=== PATIENT | female | born 1935 | race Caucasian/White ===

== ENCOUNTER 2024-02-27 17:18 | Inpatient (IN) | payer MEDICARE, OTHER, SELFPAY ==
[2024-02-27] VITALS (9 sets, daily range): BP systolic 86–138; BP diastolic 55–76; BMI 23.5; BMI 22.5
--- NOTE | 2024-02-27 16:08 | CON.GI ---
Addendum entered and electronically signed by Justa Bush DO 02/27/24 18:24:
Patient seen and examined independently of [facility]NIC[facility]. I agree with her note with my additions below
In the room with both her daughters which were helping with the history
Cristal Hudson is an 88-year-old female with history of hypertension, new seizure with recent admission to [facility] in January where she was intubated with an NG tube, daily alcohol use roughly 3 glasses of wine for years, depression who comes in with
vomiting a clot of blood followed by coffee-ground emesis in the ambulance. Over the past couple of weeks she has felt very weak and dizzy at times. She has stopped her blood pressure medications because she felt so dizzy. Upon questioning it
sounds like she also has had dark stools over the past week or so. She is not the best historian. She also has chronic pill dysphagia and states she had an esophagram done at [place]. We do not have these results. She has not seen GI. She has
not had an endoscopy. Her last colonoscopy was probably a decade ago. She is also lost some weight about 10 pounds but that is been since her hospitalization. She denies any abdominal pain. She does take an intermittent 81 mg aspirin but no
other NSAIDs. She is not on any blood thinners.
Upon arrival her hemoglobin was 7.8. Platelets 208, MCV 100, white count 13,000. We do not have any baseline hemoglobin for her. Normal coagulation studies with an INR 1.1. Her BUN is 54, creatinine 1.9, glucose 244. She is not a known diabetic.
She has no imaging to review
After a liter of fluid her blood pressure was 130/90 when I was examining her. She is pale on exam. Her abdomen is soft, nontender. Her lungs were clear she has a mild murmur
No lower extremity edema
She is calm and pleasant and in no acute distress.
#anemia and UGIB -she was hemodynamically unstable on presentation but responded well to a liter of fluids
-- Most concerned about a bleeding ulcer versus neoplasm
-- Resuscitation, 1 unit of blood will plan for endoscopy tomorrow
-- PPI drip, ICU admission, 2 large-bore IVs
-- Daughters agree
Original Note:
Consultation
-
Date/Time Consultation Requested: 02/27/24 1600
Date/Time Consultation Performed: 02/27/24 1610
Requesting Provider: Good Rivera PA-C
Performing Provider: BEAR Guerrero, Justa Bush DO
Reason for Consultation: upper GI bleed
Medical History
Chief Complaint / HPI
Chief Complaint: vomiting blood
History of Present Illness:
Pt is a 88yo presents with hx HTN but recent hypotension, PUD, new seizures with admission in [place] in January, daily ETOH use til January(3 glasses wine daily for years), depression, TKR, hysterectomy prior admits to recent dizziness. She
was found down in bathroom in January and then had witness seizure in ER. She was intubated and has several day stay. Family did recall possible anemia during that visit but no transfusion was required. She now was noted with abdominal pain and
nausea with inability to eat. She was noted with some vomiting then witnessed coffee ground emesis in ambulance and dark stool then larger volume deep red stool with clots passed in ER with some recent diarrhea. Pt denies NSAID use other than
occasional daily ASA.
Pt otherwise admits to weight loss and dizziness but denies dysphagia, GERD, or constipation. Pt did not recall EGD in past with prior PUD but hx colonoscopy many years ago recalls as normal. On admission noted BP 86/68, HR 108 with WBC 13.1,
hbg 7.8 with MCV 100, platelets normal, albumin 3.4.
Past Medical History
Past Medical History: HTN, Seizures and Other (PUD)
Past Surgical History: Gynecological (, hysterectomy)
Social History
Tobacco: Former Smoker
Alcohol: Daily (3 glasses of wine daily quit 1 month ago )
Drug: None
Personal:
Living: Other (lives in daughter's in law suite)
Employment: Retired
Family History
Family History: Other (no family hx colon CA or polyps)
Allergies / Home Medications
Allergy/AdvReac Type Severity Reaction Status Date / Time
No Known Allergies Allergy Unverified 02/27/24 16:06
Review of Systems
-
History Source: Patient and Family
Constitutional: Reports Weight Loss and Fatigue
EENT: Reports No Symptoms
Respiratory: Reports No Symptoms
Abdomen/GI: Reports Abdominal Pain, Nausea, Vomiting (coffee ground emesis ), Diarrhea, Bloody Stools and Black Stools
: Reports No Symptoms
Musculoskeletal: Reports No Symptoms
Skin: Reports No Symptoms
Neurological: Reports Dizzy and Weakness
Hematologic/Lymphatic: Reports Bleeding
Vital Signs
Pulse Resp BP Pulse Ox
108 14 86/68 97
02/27/24 15:54 02/27/24 15:54 02/27/24 15:54 02/27/24 15:54
Physical Exam
Exam
General: Other (awake and alert, pale appearing )
HEENT: Normocephalic and Anicteric
Respiratory: Clear
Cardiac: Other (tachy)
GI: Soft, Non Distended and Tender (minimal )
Rectal: Other (per staff large volume of red burgundy stools)
Musculoskeletal: No Clubbing and No Cyanosis
Skin: Warm and Dry
Neuro: Awake, Alert, AO x 3 and Other (occasional forgetfulness )
Psych: Calm
Results
Diagnostic Image Results:
Prior GI Procedures:
EGD: ? in past with PUD
Colonoscopy: years ago recall as normal
Assessment / Plan
-
Pt is a 88yo presents with hx HTN but recent hypotension, PUD, new seizures with admission in [place] in January, daily ETOH use til January(3 glasses wine daily for years), depression, TKR, hysterectomy prior admits to recent dizziness.
She was found down in bathroom in January and then had witness seizure in ER. She was intubated and has several day stay. Family did recall possible anemia during that visit but no transfusion was required. She now was noted with abdominal pain and
nausea with inability to eat. She was noted with some vomiting then witnessed coffee ground emesis in ambulance and dark stool then larger volume deep red stool with clots passed in ER. Pt did not recall EGD in past with prior PUD but hx
colonoscopy many years ago recalls as normal. On admission noted BP 86/68, HR 108 with WBC 13.1, hbg 7.8 with MCV 100, BUN 54 platelets normal, albumin 3.4. No baseline labs. Pt denies NSAID use other than occasional daily ASA.
-coffee ground emesis with large volume deep red stool on arrival
-symptomatic macrocytic anemia
-hypotension/tachycardia in ER
-daily ETOH use 3 drinks daily til January
-recent admission to [place] for new onset seizure
-hypoalbuminemia
-leukocytosis
other medical problems:
-hx HTN
-TKR
-depression
-hysterectomy
-prior
PLAN:
etiology of bleeding with concern for aggressive UGI bleed with coffee ground emesis/deep red stools with bun elevation vs lower or SB bleeding-- PUD, ectasia, mass vs with hx daily ETOH use portal gastropathy, gastritis/esophageal varices in
differential but normal INR, platelets with low albumin on arrival
will need EGD-- will review timing with Dr. Bush
NPO
PPI and octreotide gtt started on ER
ceftriaxone given in ER
obtain [facility] records
trend hbg transfuse as needed
continued ETOH abstinence
NSAID avoidance
updated family at bedside
-
-
Thank you for consultation and allowing me to participate in the patient's care. Please call the environmental health inspector GI physician during the after hours with any questions or concerns.
[2024-02-27] MEDS: PROTONIX IV 80 MG IV (16:14)
[2024-02-27] MEDS: PROTONIX 100 IV (16:16)
[2024-02-27] MEDS: SANDOSTATIN 50 MCG IV (16:17)
[2024-02-27] MEDS: NSS 1000 IV ×2 (16:18→20:05)
[2024-02-27 16:19] LABS: % Basophils 0.3 % (0-2); % Eosinophils 0.3 % (0-6); % Immature Granulocytes 0.3 % (0-0.5); % Lymphocytes 44.5 % (20.5-51.1); % Monocytes 4.8 % (1.7-9.3); % Neutrophils 49.8 % (42.2-75.2); Absolute Lymphocytes 5.8 10^3/uL (1.2-3.4); Absolute Monocytes 0.6 10^3/uL (0.1-0.6); Absolute Neutrophils 6.5 10^3/uL (1.4-6.5); Hematocrit 23.5 % (37.0-47.0); Hemoglobin 7.8 g/dL (12.0-16.0); Mean Corp Hgb Conc. 33.2 g/dL (33.0-37.0); Mean Corpuscular Hgb 33.2 pg (27.0-31.0); Mean Platelet Volume 9.6 fL (7.4-10.4); Nucleated Red Blood Cells % 0 %; Platelet Count 208 10^3/uL (130-400); Red Blood Cell Count 2.35 10^6/uL (4.20-5.40); Red Cell Dist. Width 13.5 % (11.5-14.5); White Blood Cell Count 13.1 10^3/uL (4.8-10.8)
--- NOTE | 2024-02-27 16:19 | ED.GENMED ---
History of Present Illness
<Good Rivera PA-C - Last Filed: 02/27/24 19:47>
General
Chief Complaint: Vomiting Blood
Source: patient and ambulance crew
Time Seen by Provider: 02/27/24 15:57
Travel History
Have you had any contact with someone who has COVID-19?: No
Do you have any symptoms of coronavirus? Fever > 100 degrees, chills, cough, shortness of breath, sore throat, loss of taste or smell, muscle aches, or headache?: No
History of Present Illness
History of Present Illness:
88-year-old female with past medical history of suspected alcohol withdrawal seizure, recently started on Keppra in January, presenting to the emergency department via EMS for evaluation after patient started to feel unwell over the last few days,
yesterday noticed black stools, today had an episode of coffee-ground emesis in front of EMS and patient also had a bowel movement at this time as well. Patient admits to associated lightheadedness and dizziness. She denies any abdominal pain,
current nausea, urinary symptoms. She denies any use of anticoagulants. She notes that she does not take frequent NSAIDs. Has a history of daily alcohol use noting she would drink around 1 bottle per day. Has not had any alcohol since January 20.
Denies any known history of GI complications. Last colonoscopy was many years ago without any reported complications and family history was noncontributory.
Past History
<Good Rivera PA-C - Last Filed: 02/27/24 19:47>
Past History
ED Past Medical History: Seizures
ED Past Surgical History: , Gynecological and Orthopedic
Social History
Tobacco: Non-smoker
Alcohol: Former
Drug: None
Personal:
Living: with family
Employment: Retired
Review of Systems
<Good Rivera PA-C - Last Filed: 02/27/24 19:47>
Review of Systems
All Other Systems: ROS reviewed and negative except as documented in HPI and ROS
Phy Exam
<Good Rivera PA-C - Last Filed: 02/27/24 19:47>
Physical Exam
Physical Exam:
GENERAL: Alert , pale, thin, appears unwell but is talkative
EYE: Pale conjunctiva
NECK: Supple
ENT: o/p clr
CARDIAC: Tachycardic rate and rhythm
LUNGS: Clear breath sounds bilaterally, no acute respiratory distress, no wheezes/rales/rhonchi
ABDOMEN: Soft, without focal tenderness, no r/g, no cvat
Rectal exam: Melanotic stool with small to medium size clots
NEUROLOGICAL: Alert and oriented
SKIN: Warm and dry, skin intact.
MUSCULOSKELETAL: No edema
PSYCH: Normal and appropriate interaction.
Scores
<Good Rivera PA-C - Last Filed: 02/27/24 19:47>
Heart Failure Risk
Heart Failure Risk Score: Not Applicable
Heart Score for Chest Pain Patients
STEMI patient?: Not applicable
Withdrawal Assessment of Alcohol
Withdrawal Assessment Completed?: Not applicable
Course
<Good Rivera PA-C - Last Filed: 02/27/24 19:47>
Orders/Labs/Results
Orders:
Orders
02/27/24 15:53
IV Insert/Care/Rem.- Treatment PRN
02/27/24 15:59
Type+Screen Urgent
Complete Blood Count/With Diff Urgent
Comprehensive Metabolic Panel Urgent
02/27/24 16:03
* Blood Bank Products Urgent
Blood Bank Products: *Packed RBC Leuko(PRBC's)
Quantity: 2
Transfuse Today: Yes
Reason: Bleeding
IV Insert/Care/Rem.- Treatment PRN
CefTRIAXone [Rocephin] 1,000 mg IV NOW STA
Octreotide [Sandostatin] 50 mcg IV NOW STA
Pantoprazole 80 mg/100 ml Nss [Protonix] 80 mg in 100 ml IV NOW
Pantoprazole [Protonix IV] 80 mg IV NOW STA
02/27/24 16:05
0.9% Sodium Chloride 1000 ml [Nss] 1,000 ml IV BOLUS
02/27/24 16:21
PT/INR [Prothrombin Time] Urgent
02/27/24 16:54
Admit/Transfer Patient As Directed
Co-Sign Provider:
Level of Care: Inpatient admission
Assign to:: IMU- Intermediate Care
Physician / Group: lynn nelson
Diagnosis: GI bleeding
Reason for Hospitalization: GI bleeding
Expected length of stay greater than two midnights?: Yes
ELOS- Estimated Length of Stay in days: 3
I certify the patient meets the requirements for IP care: Yes
02/27/24 16:59
Code Status As Directed
Resuscitation Status: Full Code
02/27/24 17:01
Obtain Records As Directed
Dates of Information to be Released: 01/2024
Type of Information Requested: Discharge Summary
Consults
If Other, list type of info requested: recent records of [facility] admission 01/2024
02/27/24 17:15
0.9% Sodium Chloride 1000 ml [Nss] 1,000 ml IV 100 mls/hr
02/27/24 19:41
GASTROINTESTINAL CONSULT Routine
Consulting Provider: Justa Bush
Was physician already notified: Yes
Activity As Directed
Activity Level: Bedrest
INT (Intravenous Needle Therapy) As Directed
Comment: Place 2 IV catheters of the largest bore possible until stable
Pneumatic Compression Sleeves As Directed
Type: Knee high
Vital Signs As Directed
Frequency: Per unit guidelines
DX Deep Vein Thrombosis Video Routine
02/27/24 20:00
Levetiracetam Injectable [Keppra] 500 mg IV Q12
Octreotide Acetate [Sandostatin] 600 mcg 0.9% Sodium Chloride 500 ml [Nss] 500 ml IV Q12H
02/27/24 22:00
H&H Q6H
02/28/24 02:00
Pantoprazole 80 mg/100 ml Nss [Protonix] 80 mg in 100 ml IV Q10H
02/28/24 04:00
H&H Q6H
02/28/24 Breakfast
NPO
Allow oral meds: Yes
Allow clear liquids: No
Basic Metabolic Panel IN AM
Complete Blood Count/No Diff IN AM
Cortisol, Random IN AM
TSH Reflex To Free T4 IN AM
Physical Therapy Consult [Pt Eval And Treat] IN AM
Activity Level: As Tolerated
02/28/24 08:00
Desvenlafaxine Succinate [Pristiq] 100 mg PO DAILY
Orthostatic Vital Signs BID
Orthostatic VS Frequency: BID
02/28/24 10:00
H&H Q6H
02/28/24 16:00
CefTRIAXone [Rocephin] 1,000 mg IV Q24H
02/28/24 20:00
Orthostatic Vital Signs BID
Orthostatic VS Frequency: BID
02/29/24 06:00
Basic Metabolic Panel IN AM
Complete Blood Count/No Diff IN AM
02/29/24 08:00
Orthostatic Vital Signs BID
Orthostatic VS Frequency: BID
02/29/24 20:00
Orthostatic Vital Signs BID
Orthostatic VS Frequency: BID
03/01/24 06:00
Basic Metabolic Panel IN AM
Complete Blood Count/No Diff IN AM
03/01/24 08:00
Orthostatic Vital Signs BID
Orthostatic VS Frequency: BID
03/02/24 06:00
Basic Metabolic Panel IN AM
Complete Blood Count/No Diff IN AM
03/03/24 06:00
Basic Metabolic Panel IN AM
Complete Blood Count/No Diff IN AM
Abnormal Lab Results
02/27/24
15:59
WBC 13.1 H 10^3/uL
(4.8-10.8)
RBC 2.35 L 10^6/uL
(4.20-5.40)
Hgb 7.8 L g/dL
(12.0-16.0)
Hct 23.5 L %
(37.0-47.0)
MCV 100.0 H fL
(81.0-99.0)
MCH 33.2 H pg
(27.0-31.0)
Absolute Lymphs (auto) 5.8 H 10^3/uL
(1.2-3.4)
Chloride 110 H mmol/L
(98-107)
Carbon Dioxide 16 L mmol/L
(22-30)
BUN 54 H mg/dl
(7-17)
Glucose 244 H mg/dl
(70-99)
Total Protein 5.6 L g/dl
(6.3-8.2)
Albumin 3.4 L g/dl
(3.5-5.0)
Antibody Screen Positive A
(Negative)
02/27/24 15:59
02/27/24 15:59
Vital Signs
Initial and Last Documented VS:
Initial Vital Signs
Pulse Resp BP Pulse Ox
108 14 86/68 97
02/27/24 15:54 02/27/24 15:54 02/27/24 15:54 02/27/24 15:54
Last Documented Vital Signs
Pulse Resp BP Pulse Ox
94 21 123/76 97
02/27/24 19:00 02/27/24 19:00 02/27/24 19:00 02/27/24 15:54
<Jassi GarciaJacy Rose, - Last Filed: 02/27/24 16:52>
Orders/Labs/Results
Orders:
Orders
02/27/24 15:53
IV Insert/Care/Rem.- Treatment PRN
02/27/24 15:59
Type+Screen Urgent
Complete Blood Count/With Diff Urgent
Comprehensive Metabolic Panel Urgent
02/27/24 16:03
* Blood Bank Products Urgent
Blood Bank Products: *Packed RBC Leuko(PRBC's)
Quantity: 2
Transfuse Today: Yes
Reason: Bleeding
IV Insert/Care/Rem.- Treatment PRN
CefTRIAXone [Rocephin] 1,000 mg IV NOW STA
Octreotide [Sandostatin] 50 mcg IV NOW STA
Pantoprazole 80 mg/100 ml Nss [Protonix] 80 mg in 100 ml IV NOW
Pantoprazole [Protonix IV] 80 mg IV NOW STA
02/27/24 16:05
0.9% Sodium Chloride 1000 ml [Nss] 1,000 ml IV BOLUS
02/27/24 16:21
PT/INR [Prothrombin Time] Urgent
02/27/24 16:54
Admit/Transfer Patient As Directed
Co-Sign Provider:
Level of Care: Inpatient admission
Assign to:: IMU- Intermediate Care
Physician / Group: lynn nelson
Diagnosis: GI bleeding
Reason for Hospitalization: GI bleeding
Expected length of stay greater than two midnights?: Yes
ELOS- Estimated Length of Stay in days: 3
I certify the patient meets the requirements for IP care: Yes
02/27/24 16:59
Code Status As Directed
Resuscitation Status: Full Code
02/27/24 17:01
Obtain Records As Directed
Dates of Information to be Released: 01/2024
Type of Information Requested: Discharge Summary
Consults
If Other, list type of info requested: recent records of [facility] admission 01/2024
02/27/24 17:15
0.9% Sodium Chloride 1000 ml [Nss] 1,000 ml IV 100 mls/hr
02/27/24 19:41
GASTROINTESTINAL CONSULT Routine
Consulting Provider: Justa Bush
Was physician already notified: Yes
Activity As Directed
Activity Level: Bedrest
INT (Intravenous Needle Therapy) As Directed
Comment: Place 2 IV catheters of the largest bore possible until stable
Pneumatic Compression Sleeves As Directed
Type: Knee high
Vital Signs As Directed
Frequency: Per unit guidelines
DX Deep Vein Thrombosis Video Routine
02/27/24 20:00
Levetiracetam Injectable [Keppra] 500 mg IV Q12
Octreotide Acetate [Sandostatin] 600 mcg 0.9% Sodium Chloride 500 ml [Nss] 500 ml IV Q12H
02/27/24 22:00
H&H Q6H
02/28/24 02:00
Pantoprazole 80 mg/100 ml Nss [Protonix] 80 mg in 100 ml IV Q10H
02/28/24 04:00
H&H Q6H
02/28/24 Breakfast
NPO
Allow oral meds: Yes
Allow clear liquids: No
Basic Metabolic Panel IN AM
Complete Blood Count/No Diff IN AM
Cortisol, Random IN AM
TSH Reflex To Free T4 IN AM
Physical Therapy Consult [Pt Eval And Treat] IN AM
Activity Level: As Tolerated
02/28/24 08:00
Desvenlafaxine Succinate [Pristiq] 100 mg PO DAILY
Orthostatic Vital Signs BID
Orthostatic VS Frequency: BID
02/28/24 10:00
H&H Q6H
02/28/24 16:00
CefTRIAXone [Rocephin] 1,000 mg IV Q24H
02/28/24 20:00
Orthostatic Vital Signs BID
Orthostatic VS Frequency: BID
02/29/24 06:00
Basic Metabolic Panel IN AM
Complete Blood Count/No Diff IN AM
02/29/24 08:00
Orthostatic Vital Signs BID
Orthostatic VS Frequency: BID
02/29/24 20:00
Orthostatic Vital Signs BID
Orthostatic VS Frequency: BID
03/01/24 06:00
Basic Metabolic Panel IN AM
Complete Blood Count/No Diff IN AM
03/01/24 08:00
Orthostatic Vital Signs BID
Orthostatic VS Frequency: BID
03/02/24 06:00
Basic Metabolic Panel IN AM
Complete Blood Count/No Diff IN AM
03/03/24 06:00
Basic Metabolic Panel IN AM
Complete Blood Count/No Diff IN AM
Abnormal Lab Results
02/27/24
15:59
WBC 13.1 H 10^3/uL
(4.8-10.8)
RBC 2.35 L 10^6/uL
(4.20-5.40)
Hgb 7.8 L g/dL
(12.0-16.0)
Hct 23.5 L %
(37.0-47.0)
MCV 100.0 H fL
(81.0-99.0)
MCH 33.2 H pg
(27.0-31.0)
Absolute Lymphs (auto) 5.8 H 10^3/uL
(1.2-3.4)
Chloride 110 H mmol/L
(98-107)
Carbon Dioxide 16 L mmol/L
(22-30)
BUN 54 H mg/dl
(7-17)
Glucose 244 H mg/dl
(70-99)
Total Protein 5.6 L g/dl
(6.3-8.2)
Albumin 3.4 L g/dl
(3.5-5.0)
Antibody Screen Positive A
(Negative)
02/27/24 15:59
02/27/24 15:59
Vital Signs
Initial and Last Documented VS:
Initial Vital Signs
Pulse Resp BP Pulse Ox
108 14 86/68 97
02/27/24 15:54 02/27/24 15:54 02/27/24 15:54 02/27/24 15:54
Last Documented Vital Signs
Pulse Resp BP Pulse Ox
94 21 123/76 97
02/27/24 19:00 02/27/24 19:00 02/27/24 19:00 02/27/24 15:54
<Good Rivera PA-C - Last Filed: 02/27/24 19:47>
MDM/Problems Addressed
Differential Diagnosis Includes:
Variceal bleeding, gastric bleeding, lower GI bleed, acute blood loss anemia
MDM/Problems Addressed:
88-year-old female presenting emergency department for evaluation after she had black stools yesterday, today had witnessed coffee-ground emesis per EMS. Noted history for longstanding alcohol use. Patient had large-volume melanotic stool on
arrival to the emergency department. She was found to be profoundly hypertensive at 86/68 and this was despite fluid resuscitation by EMS. Another 1 L of normal saline was given. Patient was consented for blood products. GI team made aware and
will come to the ER to consult. Patient will require admission to ICU.
<Good Rivera PA-C - Last Filed: 02/27/24 19:47>
*Pulse Oximetry
Patient hypoxic: no
*EKG
Interpreted by ED Provider?: Yes
Heart Rate: 110
Rate: tachycardiac
Rhythm: sinus and PVC's
[place]: left axis deviation
Ischemia: T-wave inversion (lateral leads)
*[employer] Clerk Interpretation
Rate: tachycardiac
Rhythm: sinus
*Critical Care Note
Total Time (30-74mins, 75-104mins- exclusive of procedures): 40
comment:
Critical care statement: A total of 40 minutes of critical care time was provided for this patient. This includes management of unstable vital signs, evaluation of the patient at bedside, reviewing the patient's pertinent medical records, discussion
with consultants, review of old EKGs and review of pertinent medical records. This time with separate from time utilized to perform the aforementioned documented procedures
<Good Rivera PA-C - Last Filed: 02/27/24 19:47>
Patient Management
Discussion with other providers: Hospitalist and Motion Picture Actor
Escalation/DeEscalation of care consider admission/obs:
Hospitalist team accepts for continued evaluation and treatment
ED Attending Note
<Good Rivera PA-C - Last Filed: 02/27/24 19:47>
-
Portions of this chart may have been created with voice recognition software.� Occasional wrong word or��sound alike� substitutions may have occurred due to the inherent limitations of voice recognition software.
<Jassi Rose DO - Last Filed: 02/27/24 16:52>
ED Attending Note
Patient seen and examined by attending physician: Yes
I performed the substantive portion of visit, reviewed & personally made and approve the management plan that is documented in note by myself or VIDYA.: Yes
ED Attending Note:
I agree with Bernardino's note.
Patient presents to the emergency room after family called 911 due to the patient feeling lightheaded and weak. Patient had developed black stool yesterday. She vomited what appeared to be coffee-ground emesis this afternoon and passed large
amount of blood from rectum as well. Hx of significant etoh use but stopped in January due to seizures.
Hypotensive, tachycardic
Pale
Abd: soft, non-tender
labs: show elevated BUN, hgb of 7.8.
Highly suspicious for upper gi bleed. Protonix started. Given history of alcohol use patient also started on octreotide and given a dose of Rocephin. Blood ordered as well. Though hgb is 7.8 I am certain this is not the nara
Critical care time 35 min
Discharge Plan
Departure
Patient Disposition: Admit
Date of Disposition: 02/27/24
Time of Disposition: 16:20
Presentation/result/management discussed w/ accepting MD/DO: Hospitalist
Discharge Problem:
Acute upper gastrointestinal bleeding
Interventions
Interventions:
*Risk Screen - Suicide Last Done: 02/27/24 16:56
*General Assessment Last Done: 02/27/24 15:54
*Neglect/Abuse Screening Last Done: 02/27/24 15:54
ED- Fall Risk Assessment Last Done: 02/27/24 16:56
*ED COVID-19 Vaccine History Last Done: 02/27/24 16:56
*Nursing Disposition Last Done: 02/27/24 19:43
YQ-Kvqdeh-Ljqjcfzotb Assessment Last Done: 02/27/24 16:56
ED- Cardiac Assessment Last Done: 02/27/24 16:56
ED- Pulmonary Assessment Last Done: 02/27/24 16:56
Discharge Date and Time
Discharge Date/Time: 02/27/24 19:43
[2024-02-27] MEDS: ROCEPHIN 1000 MG IV (16:20)
--- NOTE | 2024-02-27 16:25 | HPS.HSE ---
Family Physician
-
Family Physician:
Chief Complaint
-
Coffee-ground emesis
Black stool
History of Present Illness
88-year-old with past medical history for seizure, peptic ulcer disease, anxiety presented to us with 1 week of stomach upset Associate with nausea since Saturday. Patient had a vomiting 2 days ago, which was bright red color. Family thought, and
might be cranberry juice. Patient stated poor appetite. Patient had a dark stool yesterday. Today in the ER she had episode of bloody vomiting as well as dark stool. Patient lost 10 pounds in 1 month. Patient has worsening of chronic dizziness.
Patient does not take any NSAIDs. Patient not consistent with oral aspirin. Patient was found on the floor on January 20, patient was admitted to [facility]. She had witnessed seizure at [facility]. She was started on Keppra. she
was intubated for 3 days at [place]. Patient denied any headache. Denied any syncopal episode. Patient denied any fever, chills, chest pain. Patient does have a chronic short of breath patient denied any dysuria hematuria.
Patient used to drink 3 glasses of wine daily, but drinking since January 20.
Hemoglobin of 7.8. Patient started on PPI drip 2 units RBCs ordered in ER. .
Medical History
Past Medical History
Past Medical History: Reports Other
Additional Past Medical History:
Peptic ulcer disease
anxiety
Seizure
Past Surgical History: Reports Other
Additional Past Surgical History:
Right knee replacement
Hysterectomy
Social History
Tobacco: Former Smoker
Alcohol: Former
Drug: None
Personal:
Living: With Family
Family History
Family History: Not pertinent
Allergies / Home Medications
Allergies reflects when Allergies were last updated in [facility].
Home Medications with original date entered in [facility]
Allergy/Medication List:
Allergies
Allergy/AdvReac Type Severity Reaction Status Date / Time
No Known Allergies Allergy Unverified 02/27/24 16:06
Home Medications
desvenlafaxine succinate 100 mg tablet,extended release 24 hr 100 mg PO DAILY 02/27/24
hydralazine 25 mg tablet 25 mg PO Q8H sbp greater than 160 02/27/24
levetiracetam 500 mg tablet 500 mg PO Q12H 02/27/24
meclizine 25 mg tablet 25 mg PO Q6H PRN dizziness 02/27/24
thiamine HCl (vitamin B1) 100 mg tablet 100 mg PO DAILY 02/27/24
Review of Systems
-
Constitutional: Reports No Symptoms
EENT: Reports No Symptoms
Respiratory: Reports No Symptoms
Cardiac: Reports No Symptoms
Abdomen/GI: Reports Abdominal Pain, Nausea, Vomiting, Bloody Stools and Black Stools
: Reports No Symptoms
Musculoskeletal: Reports No Symptoms
Skin: Reports No Symptoms
Neurological: Reports No Symptoms
Endocrine: Reports No Symptoms
Hematologic/Lymphatic: Reports No Symptoms
Psych: Reports No Symptoms
Physical Exam
Vital Signs
Vital Signs
Pulse Resp BP Pulse Ox
108 14 86/68 97
02/27/24 15:54 02/27/24 15:54 02/27/24 15:54 02/27/24 15:54
Physical Exam
General: Well Developed, Well Nourished and No Apparent Distress
HEENT: NormoCephalic, Moist mucous membranes and Atraumatic
Respiratory: Clear
Cardiac: S1/S2 and Regular Rhythm; No Murmur or Rub
GI: Soft, Non Tender, Non Distended and Normal Bowel Sounds; No Organomegaly
Rectal: Deferred by Provider
Musculoskeletal: No Clubbing, No Cyanosis and No Edema
Skin: No Rash
Neuro: AO x 3 and Nonfocal/grossly intact
Psych: Calm
Data Reviewed
-
Lab Data: Labs Reviewed by me
Impression/Plan
-
# Acute blood loss anemia likely from coffee-ground emesis likely from upper GI bleed
-2 units ordered in ER
-N.p.o.
-IV Protonix and octreotide continued
-Trend hemoglobin every 6 hours
-GI consulted
# History of seizure
-Keppra continued
# History of dizziness
#depression
desvenlafaxine continued
# DVT prophylaxis
-SCD
# CODE STATUS
-Full code
[2024-02-27 16:42] LABS: ALT (SGPT) 16 U/L (0-35); AST (SGOT) 19 U/L (14-36); Albumin 3.4 g/dl (3.5-5.0); Alkaline Phosphatase 50 U/L (38-126); Blood Urea Nitrogen 54 mg/dl (7-17); Calcium 8.8 mg/dl (8.4-10.2); Carbon Dioxide 16 mmol/L (22-30); Chloride 110 mmol/L (98-107); Estimated Creatinine Clearance 40 ml/min; Glucose 244 mg/dl (70-99); Potassium 4.4 mmol/L (3.5-5.1); Sodium 137 mmol/L (135-145); Total Bilirubin 0.3 mg/dl (0.2-1.3); Total Protein 5.6 g/dl (6.3-8.2); eGFR > 60.00
[2024-02-27 16:46] LABS: INR 1.13; PT 14.5 Sec (11.4-14.6)
--- NOTE | 2024-02-27 17:23 | W.PN.UPDATE ---
Update Note
Progress Note Update
This note is in addition to H&P
I saw and examined the patient.
The NEEDLE POLISHER or PA's note was reviewed and I agree with the note.
Comment: 88-year-old female with past medical history of anxiety, peptic ulcer disease, hypertension, seizures came to the hospital with coffee-ground emesis and dark stools. Hemoglobin 7.8 on admission. Seen by GI. Do not know her hemoglobin
baseline. Denies any NSAID use however sometimes take oral aspirin. Patient was recently at [facility] after a seizure and was intubated for few days. Does note history of drinking however not aware if has any liver disease. Last drink
was in January. Will give 2 units of blood and monitor. GI following. Blood pressure markedly improved after fluids in the ED so will admit to IMU for closer monitoring. Continue with Protonix and octreotide. N.p.o. for now.
CODE STATUS was discussed with patient and daughter at bedside. Remains full code
General: Well Developed, Well Nourished and No Apparent Distress
HEENT: NormoCephalic, Moist mucous membranes and Atraumatic
Respiratory: Clear
Cardiac: S1/S2 and Regular Rhythm; No Murmur or Rub
GI: Soft, Non Tender, Non Distended and Normal Bowel Sounds; No Organomegaly
Rectal: Deferred by Provider
Musculoskeletal: No Clubbing, No Cyanosis and No Edema
Skin: No Rash
Neuro: AO x 3 and Nonfocal/grossly intact
Psych: Calm
I spent a total of 78 minutes with the patient or on the floor. More than 50% of this time involved counseling and coordination of care.
--- NOTE | 2024-02-27 18:24 | W.PN.UPDATE ---
Update Note
Progress Note Update
For billing purposes
--- NOTE | 2024-02-27 20:00 | PTCARENOTE ---
Received patient from ED accompanied by ED RN and PCT, patient transferred into bed without difficulties. Nursing assessment completed and documented. Ox3, NSR on monitor, ST at times with PVC's, murmur, +PP, on RA lung sounds clear, abd soft
non-tender, denies pain or nausea at this time. Patient admits to stress inc of urine, purewick applied. Inc at time's of BM, brief with smear of black BM, hygiene care provided. IV protonix infusing via R PIV, octeotride hung and infusing per
orders along with IVF, see MAR. Patient ordered bedrest. Oriented to room/facility, call guillen within reach, continue with current care plan.
[2024-02-27] MEDS: KEPPRA 500 MG IV (20:05)
[2024-02-27] MEDS: SANDOSTATIN 500.600000000000023 MCG IV (20:17)
--- NOTE | 2024-02-27 22:00 | PTCARENOTE ---
Patient ordered Q6 H&H, 2200 H&H resulted at 6.1 from 7.8. 2 units PRBC's ordered in ED but patient positive with antibodies, blood bank called for ETA of blood products but unable to give at this time.
~2300 Blood bank called, unable to give blood at this time. Additional labs ordered to be sent out to [facility].
[2024-02-27 22:22] LABS: Hematocrit 18.1 % (37.0-47.0); Hemoglobin 6.1 g/dL (12.0-16.0)
[2024-02-27] MEDS: MELATONIN 3 MG PO (23:26)
--- NOTE | 2024-02-27 23:30 | PTCARENOTE ---
Pt received resting comfortably in bed. AAOx3. HR SR/ST. Lungs clear. on 2L pox 99%. Skin pale. + pulses. No c/o pain, nausea, or dizziness at this time. Mouthcare and tamiko care provided. Pt w/ noted stress incontinence. Purewick not in place. IVF,
Protonix, and Octreotide infusing. Pt on bedrest at this time. Blood bank requested labs for the [place] sent.
[2024-02-28] VITALS (29 sets, daily range): BP systolic 92–156; BP diastolic 47–102; BMI 22.8
[2024-02-28] MEDS: PROTONIX 100 IV ×2 (02:11→11:36)
[2024-02-28] MEDS: NSS 1000 IV ×3 (03:54→22:29)
[2024-02-28 04:04] LABS: Mean Corpuscular Hgb 33.7 pg (27.0-31.0); Mean Corpuscular Volume 99.4 fL (81.0-99.0); Mean Platelet Volume 9.5 fL (7.4-10.4); Platelet Count 135 10^3/uL (130-400); Red Blood Cell Count 1.63 10^6/uL (4.20-5.40); Red Cell Dist. Width 13.4 % (11.5-14.5); White Blood Cell Count 7.5 10^3/uL (4.8-10.8)
[2024-02-28 04:20] LABS: Hematocrit 16.2 % (37.0-47.0); Hemoglobin 5.5 g/dL (12.0-16.0)
[2024-02-28 04:35] LABS: Blood Urea Nitrogen 51 mg/dl (7-17); Calcium 7.8 mg/dl (8.4-10.2); Carbon Dioxide 19 mmol/L (22-30); Chloride 116 mmol/L (98-107); Estimated Creatinine Clearance 40 ml/min; Glucose 131 mg/dl (70-99); Sodium 140 mmol/L (135-145); eGFR > 60.00
[2024-02-28 05:06] LABS: Cortisol, Random 6.7 ug/dl; TSH Reflex To Free T4 0.77 uIU/ml (0.47-4.68)
[2024-02-28] MEDS: PRISTIQ 100 MG PO (07:40)
[2024-02-28] MEDS: SANDOSTATIN 500.600000000000023 MCG IV (07:40)
[2024-02-28] MEDS: KEPPRA 500 MG IV ×2 (07:40→21:16)
--- NOTE | 2024-02-28 07:45 | CON.INTV ---
Addendum entered and electronically signed by Joaquin Mai MD 02/28/24 08:38:
Of note, initial EKG sinus tachycardia
Presently, heart rate in 60s.
Repeat EKG
Original Note:
Consultation
Consultation Request
Date/Time Consultation Requested: 02/27
Date/Time Consultation Performed: 02/27
Reason for Consultation: crit care
Medical History
-
History of Present Illness:
History obtained from the patient and reviewing the chart. Patient is an 88-year-old female with a history of seizures thought to be secondary to alcohol withdrawal, hysterectomy many years ago, right knee replacement requiring transfusion
postoperatively in the past, presents 4. Patient apparently noted black stool 1 day prior, 02/27/24 by ambulance crew for hematemesis. Per ED records, patient had lightheadedness, dizziness but denies any abdominal pain. Patient drinks 2-3 drinks
of wine a day, states she drinks a 'small bottle' of wine with her . Upon arrival to [facility], pulse 108, breathing at 14, blood pressure 86/68, 97%. Patient received ceftriaxone, octreotide, IV Protonix, IV fluids. Was found to
have a hemoglobin of 7.8. Subsequent hemoglobin noted to be 6.1 with fluids. Patient admitted to IMU. Unfortunate has not received blood to date due to significant antibodies. [facility] has been contacted.
Presently, denies shortness of breath, chest pain, nausea, abdominal pain, lightheadedness. She appears comfortable and without complaints
.
PMH: History of seizures thought to be secondary to alcohol withdrawal, hysterectomy, right knee replacement followed by transfusion requirement. Patient denies history of cancer. She states she has had a colonoscopy in the past. History of vent
dependent respiratory failure with seizure at [facility]. History of peptic ulcer disease per GI correspondence
Past Medical History
Past Medical History: None (See above)
Past Surgical History: None (See above)
Social History
Tobacco: Former Smoker (Less than [id number], quit many years ago)
Alcohol: Daily (Sounds like about a bottle of wine a day)
Drug: None
Personal:
Living: With Family
Employment: Not Employed
Family History
Family History: Other (4 daughters healthy. Mother from lung cancer.)
Allergies / Home Medications
Allergies
Allergy/AdvReac Type Severity Reaction Status Date / Time
No Known Allergies Allergy Unverified 02/27/24 16:06
Home Medications
�Medication �Instructions �Recorded �Confirmed �Last Taken �Type
aspirin 81 mg tablet,delayed 81 mg PO DAILY 02/27/24 02/27/24 02/27/24 History
release
desvenlafaxine succinate 100 mg 100 mg PO DAILY 02/27/24 02/27/24 02/27/24 History
tablet,extended release 24 hr
levetiracetam 500 mg tablet 500 mg PO Q12H 02/27/24 02/27/24 02/27/24 History
Review of Systems
-
All other systems: Negative unless noted (Patient states she has lost 10 pounds over the past few months)
Vitals / Labs / Diagnostic Testing
Vital Signs
Temp Pulse Resp BP Pulse Ox
97.4 F 65 20 100/51 100
02/28/24 07:34 02/28/24 07:00 02/28/24 07:00 02/28/24 05:00 02/28/24 06:00
Lab Data
02/28/24 03:53
Laboratory Results
02/27/24
16:21
PT 14.5
INR 1.13
Diagnostic Testing:
Physical Exam
-
HEENT: Normocephalic and Anicteric
Cardiovascular: S1/S2, Regular Rhythm, Murmur (n), Rub (n), Peripheral Edema (n) and Calf Tenderness (n)
Respiratory: Wheeze (n), Rales (n), Rhonchi (n) and Non-Labored Respirations
GI: Soft, Non Distended and Non Tender
Neurology: Awake, Alert, Oriented and No Motor Deficits
Skin: Other (Mild pallor, no skin rash)
General: Comfortable
Assessment
-
88-year-old female with history of withdrawal seizures from alcohol, peptic ulcer disease, presents with coffee-ground emesis, dark stool. Patient drinks alcohol on a daily basis. Admitted with hemoglobin of 7.8. Given IV fluids. Unfortunate not
received blood transfusion, hemoglobin down to 5.5. Patient is without symptoms at this time. We are asked to help from critical care standpoint
Acute hematemesis
Anemia, hemoglobin 5.5
Awaiting transfusion
Daily alcohol use, 1 bottle of wine
History of withdrawal seizure requiring intubation at [facility]
History of peptic ulcer disease
Hypertension
History of right knee replacement requiring transfusion
History of hysterectomy
Plan/recommendations
At this time, patient is critically ill with a hemoglobin of 5.5. Urine output adequate, creatinine stable.
Random cortisol was sent, 6.7.
Patient with positional lightheadedness in the ED, presently denies any lightheaded symptoms
Apparently has significant antibodies, unable to transfuse at this time awaiting blood from the [facility]
Fortunately, patient is without symptoms
Moving forward
Continue with IV fluids, IV Protonix, octreotide
Patient is also on ceftriaxone
Reviewed with nursing, [facility] will be contacted again, awaiting blood
Patient states she feels well
No further episodes of hematemesis or bowel movements since admission
Reviewed with primary service
Will follow
TCCT 31 min
--- NOTE | 2024-02-28 08:23 | PTCARENOTE ---
RN called Blood Bank and spoke with LASHON, whom stated blood is not ready and they do not have an ETA for when blood bank at the [facility] will have safe blood to transfuse. Lashon states her senior production supervisor will reach out to [facility] for more information.
--- NOTE | 2024-02-28 08:40 | PTCARENOTE ---
Patient AAOx3, reports no discomfort at this time. Resting in bed comfortably. VS within normal limits. Patient hemoglobin 5.5 this am, EKG ordered. RN called blood bank, no available blood at this time. Patient given AM meds. Instructed to stay on
bedrest due to low hemoglobin as well as low bp. Patient verbalized understanding.
--- NOTE | 2024-02-28 10:44 | W.PN.UPDATE ---
Update Note
Progress Note Update
Reviewed with blood bank. They are unable to recent blood in the setting of an emergency without physician approval given risk for hemolytic reaction
Reviewed with primary service, reviewed with hematology (Mirta)
Hematology will discuss with blood bank and give recommendations to clear for transfusion in the setting of emergency
It is unclear when [place] will release blood within the next 48 hours
Fortunately, patient is without symptoms at this time, without complaints, hemodynamically stable
Repeat EKG this morning adequate
I updated daughter at length by phone and reviewed above clinical plan
She is aware. All questions answered
--- NOTE | 2024-02-28 11:00 | CM ---
Addendum entered by Trenton Menon 02/28/24 15:26:
Pt is active with [facility]. CM confirmed it with [facility] liaison Adelina.
Original Note:
CM following re: discharge planning.
Discussed in rounds, reviewed pt's chart, met with pt.
Pt is an 88 year old female, admitted with primary dx of GI Bleed.
Pt reports she lives with in in-law suite at daughter's house, has 4 supportive children. Pt reports he ambulates without assistive devices inside the house, uses a Rollator when goes outside. 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 Pt expressed her desire to return back home at discharge.
PCP: Latoya Erickson
Pharmacy: [facility]
D/C plan: home with anticipated no needs. Pending PT evaluation. Family to transport at discharge.
CM will follow with discharge planning progress as hospitalization progresses
[2024-02-28 11:09] LABS: Hematocrit 18.6 % (37.0-47.0); Hemoglobin 5.9 g/dL (12.0-16.0)
[2024-02-28 13:26] LABS: LDH 122 U/L (120-246)
[2024-02-28 13:42] LABS: Reticulocyte Count 3.5 % (0.4-2.8)
[2024-02-28 13:59] LABS: Hepatitis B Surface Antigen Negative (Negative)
--- NOTE | 2024-02-28 14:08 | W.PN.HOSP.TC ---
Today's Communication/Plan
-
Monitor vital signs and see plan
Continue with IVF
Transfuse 2 unit PRBC when available
Continue with PPI, octreotide
GI scope when hemoglobin stable
Assessment / Plan
Assessment / Plan
General: Well Developed, Well Nourished and No Apparent Distress
HEENT: NormoCephalic, Moist mucous membranes and Atraumatic
Respiratory: Clear
Cardiac: S1/S2 and Regular Rhythm; No Murmur or Rub
GI: Soft, Non Tender, Non Distended and Normal Bowel Sounds; No Organomegaly
Musculoskeletal: No Clubbing, No Cyanosis and No Edema
Neuro: AO x 3 and Nonfocal/grossly intact
Psych: Calm
Acute blood loss anemia likely from coffee-ground emesis likely from upper GI bleed
-2 units ordered however transfusion delayed due to multiple antibodies. Suspect some autoimmune component. Multiple studies pending
Hemoglobin now 5.9, no further bleeding. Patient otherwise hemodynamically stable
Spoke with hematology and they would hold off on any steroids at this time as reticulocyte is mildly elevated at 3.5. Dr. Kirby spoke with blood bank and should have blood products this afternoon
GI scope after blood transfusion
-N.p.o.
-IV Protonix and octreotide continued
-Trend h/h
-GI following
cw IVF
# History of seizure
-Keppra continued
# History of dizziness
#depression
desvenlafaxine continued
# DVT prophylaxis
-SCD
# CODE STATUS
-Full code
I spent a total of 53 minutes with the patient or on the floor. More than 50% of this time involved counseling and coordination of care.
Anticipated Discharge: > 48 hours
Subjective/Interval History
-
Date of Service: February 28, 2024
denies pain
Objective Data
-
Labs:
Laboratory Results
02/28/24 02/28/24 02/28/24
03:53 03:53 03:53
WBC 7.5
Hgb Cancelled 5.5 L*
Hct Cancelled 16.2 L*
Plt Count 135 D
Sodium 140
Potassium 4.0
Chloride 116 H
Carbon Dioxide 19 L
BUN 51 H
Creatinine 0.9
Glucose 131 H
Calcium 7.8 L
02/28/24
10:19
WBC
Hgb 5.9 L*
Hct 18.6 L*
Plt Count
Sodium
Potassium
Chloride
Carbon Dioxide
BUN
Creatinine
Glucose
Calcium
Vital Signs:
Vital Signs
Temp Pulse Resp BP Pulse Ox
97.8 F 65 20 100/51 100
02/28/24 11:19 02/28/24 07:00 02/28/24 07:00 02/28/24 05:00 02/28/24 06:00
[2024-02-28 14:17] LABS: Hepatitis B Core Ab, Total Negative (Negative); Hepatitis B Surface Antibody Negative; Hepatitis C Antibody Negative (Negative)
--- NOTE | 2024-02-28 15:56 | CON.ONC ---
Impression
Impression
GI bleed
anemia
positive SAYRA
Plan
Plan
1. Anemia - given patient's h/o coffee ground emesis/ dark stools - likely component of GI blood loss. GI following to scope once stable. Positive SAYRA raises concern for possible hemolysis - though gel elution was negative and retic was only
marginally elevated at 3.5%. Await haptoglobin. W/ slight elevation in lymphocytes - will check flow. Follow CBC.
2. Difficult cross match - per blood bank - PRBCs have been obtained and the patient will receive transfusion of 2 units this afternoon.
Will continue to follow with you.
Patient History
History of Present Illness
88y/o female seen in consultation today regarding anemia.
The patient presented to the [facility] on 02/26 w/ weakness in the setting of an episode of coffee ground emesis and dark stools. She has a h/o chronic alcohol use and peptic ulcer disease.
Hemoglobin on presentation was 7.8g/dl, dropping to 5.5g/dl this am. Hemoglobin remains stable this afternoon at 5.9g/dl. Blood transfusion has been ordered; however, blood cross match has been difficult. Blood bank testing revealed positive SAYRA -
1+ for IgG w/ no antibodies detected on gel elution. Reticulocyte count was 3.5%.
Clincally, she denies SOB at rest or chest pain. No abdominal pain, fullnes fevers or chills. No further vomiting or dark stools.
Past-Medical/Surgical History
PMH:
Peptic ulcer disease
anxiety
Seizure
alcohol use
PSH:
Right knee replacement
Hysterectomy
Social History
Tobacco: Former Smoker
Alcohol: patient has a h/o significant chronic alcohol use
Family History
Family History: Not pertinent
Allergies: NKDA
Patient Medication
�Medication �Instructions �Recorded �Confirmed �Last Taken �Type
aspirin 81 mg tablet,delayed 81 mg PO DAILY Blood Clot 02/27/24 02/27/24 02/27/24 History
release Prevention/Tx
desvenlafaxine succinate 100 mg 100 mg PO DAILY Mental 02/27/24 02/27/24 02/27/24 History
tablet,extended release 24 hr Health/Anxiety
levetiracetam 500 mg tablet 500 mg PO Q12H Seizures 02/27/24 02/27/24 02/27/24 History
Active Medications
Generic Name Dose Route Start Last Admin
Trade Name Freq PRN Reason Stop Dose Admin
Ceftriaxone Sodium 1,000 mg 02/28/24 16:00
Ceftriaxone 1000 Mg / 10 Ml Vial IV
Q24H MICHAEL
Desvenlafaxine Succinate 100 mg 02/28/24 08:00 02/28/24 07:40
Desvenlafaxine Succinate (Pristiq) 100 Mg Tab.Er.24h PO 03/27/24 07:59 100 mg
DAILY MICHAEL Administration
Sodium Chloride 1,000 mls @ 100 mls/hr 02/27/24 17:15 02/28/24 11:36
Nss IV 1,000 mls
.Q10H MICHAEL Administration
Pantoprazole Sodium 80 mg in 100 mls @ 10 mls/hr 02/28/24 02:00 02/28/24 11:36
Protonix IV 100 mls
Q10H MICHAEL Administration
8 MG/HR
Levetiracetam 500 mg 02/27/24 20:00 02/28/24 07:40
Levetiracetam (100 Mg/Ml) 500 Mg/5 Ml Vial IV 03/26/24 19:59 500 mg
Q12 MICHAEL Administration
Sodium Chloride 0 flush 02/27/24 20:00
Sodium Chloride 0.9% (Flush) Syringe IV 03/26/24 19:59
PER PROTOCOL MICHAEL
Sterile Water 10 ml 02/28/24 16:00
Sterile Water For Injection 10 Ml Vial IV 03/27/24 15:59
Q24H MICHAEL
Review of Systems
-
A full ROS was performed w/ pertinent findings as per HPI.
Physical Exam
-
General: Well Developed and No Apparent Distress
Cardiology: Normal Sinus Rhythm
Pulmonary: Clear
GI: Soft and Normal Bowel Sounds
Extremities: No C/C/E
Neurology: Non Focal
Labs
Lab Results
WBC 7.5 10^3/uL (4.8-10.8) 02/28/24 03:53
RBC 1.63 10^6/uL (4.20-5.40) L 02/28/24 03:53
Hgb 5.9 g/dL (12.0-16.0) L* 02/28/24 10:19
Hct 18.6 % (37.0-47.0) L* 02/28/24 10:19
MCV 99.4 fL (81.0-99.0) H 02/28/24 03:53
MCH 33.7 pg (27.0-31.0) H 02/28/24 03:53
MCHC 34.0 g/dL (33.0-37.0) 02/28/24 03:53
RDW 13.4 % (11.5-14.5) 02/28/24 03:53
Plt Count 135 10^3/uL (130-400) D 02/28/24 03:53
MPV 9.5 fL (7.4-10.4) 02/28/24 03:53
Abs Immat Gran (auto) 0.0 10^3/uL (0-0.05) 02/27/24 15:59
Absolute Neuts (auto) 6.5 10^3/uL (1.4-6.5) 02/27/24 15:59
Absolute Lymphs (auto) 5.8 10^3/uL (1.2-3.4) H 02/27/24 15:59
Absolute Monos (auto) 0.6 10^3/uL (0.1-0.6) 02/27/24 15:59
Absolute Eos (auto) 0.0 10^3/uL (0-0.7) 02/27/24 15:59
Absolute Basos (auto) 0.0 10^3/uL (0-0.2) 02/27/24 15:59
Immature Gran % 0.3 % (0-0.5) 02/27/24 15:59
Neutrophils % 49.8 % (42.2-75.2) 02/27/24 15:59
Lymphocytes % 44.5 % (20.5-51.1) 02/27/24 15:59
Monocytes % 4.8 % (1.7-9.3) 02/27/24 15:59
Eosinophils % 0.3 % (0-6) 02/27/24 15:59
Basophils % 0.3 % (0-2) 02/27/24 15:59
Creatinine 0.9 mg/dL (0.6-1.0) 02/28/24 03:53
Vital Signs
Vital Signs
Temp Pulse Resp BP Pulse Ox
97.0 F 71 20 151/64 100
02/28/24 15:10 02/28/24 15:10 02/28/24 15:10 02/28/24 15:10 02/28/24 06:00
[2024-02-28] MEDS: STERILE WATER FOR INJECTION 10 ML IV (16:41)
[2024-02-28] MEDS: ROCEPHIN 1000 MG IV (16:41)
[2024-02-28] MEDS: MELATONIN 10 MG PO (22:29)
[2024-02-29] VITALS (17 sets, daily range): BP systolic 105–136; BP diastolic 48–79; PULSE 69; O2SAT 97; BMI 24.1
[2024-02-29 04:59] LABS: Hematocrit 23.2 % (37.0-47.0); Hemoglobin 7.7 g/dL (12.0-16.0); Mean Corp Hgb Conc. 33.2 g/dL (33.0-37.0); Mean Corpuscular Volume 99.6 fL (81.0-99.0); Mean Platelet Volume 9.2 fL (7.4-10.4); Platelet Count 128 10^3/uL (130-400); Red Blood Cell Count 2.33 10^6/uL (4.20-5.40); Red Cell Dist. Width 14.5 % (11.5-14.5); White Blood Cell Count 6.7 10^3/uL (4.8-10.8)
[2024-02-29 05:19] LABS: Blood Urea Nitrogen 29 mg/dl (7-17); Calcium 7.8 mg/dl (8.4-10.2); Carbon Dioxide 22 mmol/L (22-30); Chloride 115 mmol/L (98-107); Estimated Creatinine Clearance 45 ml/min; Glucose 94 mg/dl (70-99); Potassium 3.7 mmol/L (3.5-5.1); Sodium 139 mmol/L (135-145); eGFR > 60.00
--- NOTE | 2024-02-29 07:15 | W.PN.INTV ---
Today's Communication / Plan
Recommendations
Discontinue ceftriaxone
Advance to regular diet
Follow hemoglobin
Continue Protonix
Discussed importance of alcohol abstinence
Out of bed to chair, ambulate, check hemodynamics
Okay for transfer out of ICU. We will sign off. Please call with questions
Assessment
-
88-year-old female with history of withdrawal seizures from alcohol, peptic ulcer disease, presents with coffee-ground emesis, dark stool. Patient drinks alcohol on a daily basis. Admitted with hemoglobin of 7.8. Given IV fluids. Unfortunate not
received blood transfusion, hemoglobin down to 5.5. Patient is without symptoms at this time. We are asked to help from critical care standpoint
Acute hematemesis
Anemia, hemoglobin 5.5
s/p Tx 2U
EGD unremarkable
Daily alcohol use, 1 bottle of wine
History of withdrawal seizure requiring intubation at [facility]
History of peptic ulcer disease
Hypertension
History of right knee replacement requiring transfusion
History of hysterectomy
Plan/recommendations
At this time, patient appears to be comfortable
Received 2 units of blood yesterday p.m. Hemoglobin 7.7
Patient is without complaints
Random cortisol was sent, 6.7.
Patient with positional lightheadedness in the ED, presently denies any lightheaded symptoms
EGD unremarkable
Moving forward
Continue with supportive care
Remains on IV Protonix. Octreotide discontinued. Ceftriaxone recommended to be discontinued per GI
Advance diet per GI
No further episodes of hematemesis or bowel movements since admission
Okay for transfer out of ICU.
Will
We will sign off. Please call with questions
Subjective Dataa
Subjective Data
Date of Service:
Date of Service: February 29, 2024
Subjective:
Patient is without complaints. Denies shortness of breath, chest pain, nausea, abdominal pain. No further hematemesis or bowel movement
Objective Data
Data Reviewed
Vital Signs / I&O / Oxygen:
Vital Signs
Temp Pulse Resp BP Pulse Ox
97.7 F 77 19 132/71 90
02/28/24 20:20 02/29/24 06:00 02/29/24 06:00 02/29/24 05:09 02/29/24 06:00
Intake and Output
02/28/24 02/29/24 03/01/24
06:59 06:59 06:59
Intake Total 1350 / 1350
Balance 1350 / 1350
SaO2 90
Nasal Cannula flow liters per 2
minute
Physical Exam
General: Comfortable
HEENT: Normocephalic and Anicteric
Cardiovascular: S1-S2, Regular Rhythm, Murmur (n), Rub (n), Peripheral Edema (n) and Calf Tenderness (n)
Respiratory: Wheeze (n), Crackles (n), Rhonchi (n) and Non-Labored Respirations
GI: Soft, Non Distended and Non Tender
Neurology: Awake, Alert and No Motor Deficits
Skin: Good Color (Mild pallor)
Labs/Micro/Reports
Lab Data
02/29/24 04:48
02/29/24 04:48
[2024-02-29] MEDS: NSS 1000 IV (08:36)
[2024-02-29] MEDS: KEPPRA 500 MG IV ×2 (08:36→21:44)
[2024-02-29] MEDS: PROTONIX IV 40 MG IV (08:36)
[2024-02-29] MEDS: PRISTIQ 100 MG PO (08:36)
[2024-02-29] MEDS: NSS (PRESERVATIVE FREE) 10 ML IV (08:36)
--- NOTE | 2024-02-29 08:47 | W.PN.GI.CBS2 ---
Today's Communication / Plan
-
Adv to regular diet
Stop ceftriaxone (given no varices seen on EGD0
Serial H/H and monitor stool output
Assessment / Plan
-
88yo presents with hx HTN but recent hypotension, PUD, new seizures with admission in [place] in January, daily ETOH use til January(3 glasses wine daily for years), depression, TKR, hysterectomy prior admits to recent dizziness. She was
found down in bathroom in January and then had witness seizure in ER. She was intubated and has several day stay. Family did recall possible anemia during that visit but no transfusion was required. She now was noted with abdominal pain and nausea
with inability to eat. She was noted with some vomiting then witnessed coffee ground emesis in ambulance and dark stool then larger volume deep red stool with clots passed in ER. Pt did not recall EGD in past with prior PUD but hx colonoscopy many
years ago recalls as normal.
Impression
-coffee ground emesis with large volume deep red stool on arrival
EGD 02/27 with gastritis, no old or fresh blood
-symptomatic macrocytic anemia
-hypotension/tachycardia in ER
Now resolved
-daily ETOH use 3 drinks daily january
-recent admission to [place] for new onset seizure
-hypoalbuminemia
-leukocytosis
-hx HTN
-TKR
-depression
-hysterectomy
-prior
Plan
- EGD 02/27 showed gastritis without source of GIB found. No varices seen. Stop CTX and octreotide
- C/w Protonix 40mg IV daily
- Hemodynamics stable now and no further BM since 02/26 suggestive that GIB has stopped
- Appreciate hematology recommendations +SAYRA raises concern for hemolysis.
- Adv to regular diet today
- Monitor stool output. Hold on colonoscopy as she is not able to tolerate prep currently
- Await records from [place] of prior Cscope
Will follow with you
Subjective
Subjective
Date of Service: February 29, 2024
Post EGD she tolerated oral intake with jello and broth. Denies abd pain, nausea/vomiting. She had no BM since 02/26.
Objective
Data Reviewed
Laboratory Data:
Laboratory Results
02/29/24 04:48
02/29/24 04:48
Laboratory Results
PT 14.5 Sec (11.4-14.6) 02/27/24 16:21
INR 1.13 02/27/24 16:21
Total Bilirubin 0.3 mg/dl (0.2-1.3) 02/27/24 15:59
AST 19 U/L (14-36) 02/27/24 15:59
ALT 16 U/L (0-35) 02/27/24 15:59
Alkaline Phosphatase 50 U/L (38-126) 02/27/24 15:59
Vital Signs and I&O:
Vital Signs
Temp Pulse Resp BP Pulse Ox
97.7 F 69 13 132/71 91
02/29/24 08:11 02/29/24 08:30 02/29/24 08:30 02/29/24 05:09 02/29/24 08:30
I&O
02/28/24 02/29/24 03/01/24
06:59 06:59 06:59
Intake Total 1350 / 1350
Balance 1350 / 1350
Physical Exam
Physical Exam
GEN: No acute distress, conversant, pleasant, pale appearing
HEENT: anicteric, extraocular movements intact, clear oropharynx without exudates
GI: soft, non-distended, not tender to palpation, normal active bowel sounds, no hepatosplenomegaly
EXT: warm, well perfused, trace edema bilaterally
NEURO: AAOx3, non-focal
--- NOTE | 2024-02-29 13:58 | PTCARENOTE ---
Rec'd pt at 0700. Pt sleeping but easily awakens. Oriented x3, follows commands, PARK. Monitor SR with 1st degree AVB. Lungs CTA. +BS, abd soft/nt. Incont large amt urine, pericare performed. Physical therapy in to work with pt, pt OOB to chair with
assist of 1 and walker. Family at bedside, updated. Pt transferred to tele/4th floor via bed. Daughter with pt.
--- NOTE | 2024-02-29 13:59 | W.PN.HOSP.TC ---
Today's Communication/Plan
-
Monitor vital signs and see plan
Repeat H&H
Hematology to see today
Continue with PPI
Discussed with family at bedside
Assessment / Plan
Assessment / Plan
General: Well Developed, Well Nourished and No Apparent Distress
HEENT: NormoCephalic, Moist mucous membranes and Atraumatic
Respiratory: Clear
Cardiac: S1/S2 and Regular Rhythm; No Murmur or Rub
GI: Soft, Non Tender, Non Distended and Normal Bowel Sounds; No Organomegaly
Musculoskeletal: No Clubbing, No Cyanosis and No Edema
Neuro: AO x 3 and Nonfocal/grossly intact
Psych: Calm
Acute blood loss anemia likely from coffee-ground emesis likely from upper GI bleed
-2 units ordered however transfusion delayed due to multiple antibodies. Suspect some autoimmune component. Multiple studies pending
Hemoglobin was in the 5's, finally received blood transfusion, 2 units. Hemoglobin now 7.7
s/p EGD, without any bleeding, showed gastritis.
Now off octreotide drip, ceftriaxone since no varices.
Continue with PPI
Positive SAYRA raises concern for hemolysis. Hematology following.
Now on regular diet
Transfer out of ICU
monitor H/H
# History of seizure
-Keppra continued
# History of dizziness
#depression
desvenlafaxine continued
# DVT prophylaxis
-SCD
# CODE STATUS
-Full code
Anticipated Discharge: 24 - 48 hours
Subjective/Interval History
-
Date of Service: February 29, 2024
Denies abdominal pain
Objective Data
-
Labs:
Laboratory Results
02/29/24 02/29/24
04:48 17:09
WBC 6.7
Hgb 7.7 L Pending
Hct 23.2 L
Plt Count 128 L
Sodium 139
Potassium 3.7
Chloride 115 H
Carbon Dioxide 22
BUN 29 H
Creatinine 0.8
Glucose 94
Calcium 7.8 L
Vital Signs:
Vital Signs
Temp Pulse Resp BP Pulse Ox
97.7 F 83 20 136/72 97
02/29/24 13:41 02/29/24 13:41 02/29/24 13:41 02/29/24 13:41 02/29/24 13:41
I&O
02/28/24 02/29/24 03/01/24
06:59 06:59 06:59
Intake Total 1350 / 1450 400 / 400
Balance 1350 / 1450 400 / 400
--- NOTE | 2024-02-29 17:10 | W.PN.ONC ---
Today's Communication / Plan
-
-improved Hb post transfusion
-follow CBC
Impression
Impression
GI bleed
anemia
positive SAYRA
Plan
Plan
1. Anemia
-given patient's h/o coffee ground emesis/ dark stools - likely component of GI blood loss
-s/p endoscopy yest - w/ no active bleeding
-s/p transfusion 2 units PRBCs - w/ appropriate rise in Hb
-follow CBC
2. Positive SAYRA
-raises concern for possible component of hemolysis - though gel elution was negative and retic was only marginally elevated at 3.5%
-await haptoglobin
Subjective/Objective
Subjective/Objective
no further bleeding - feels better
Vital Signs:
Vital Signs
Temp Pulse Resp BP Pulse Ox
97.7 F 83 20 136/72 97
02/29/24 13:41 02/29/24 13:41 02/29/24 13:41 02/29/24 13:41 02/29/24 13:41
Lab Results:
Laboratory Data
WBC 6.7 10^3/uL (4.8-10.8) 02/29/24 04:48
Hgb 7.7 g/dL (12.0-16.0) L 02/29/24 04:48
Plt Count 128 10^3/uL (130-400) L 02/29/24 04:48
PT 14.5 Sec (11.4-14.6) 02/27/24 16:21
INR 1.13 02/27/24 16:21
eGFR > 60.00 02/29/24 04:48
Exam: unchanged
[2024-02-29 17:35] LABS: Hemoglobin 7.8 g/dL (12.0-16.0)
[2024-02-29] MEDS: MELATONIN 5 MG PO (22:53)
[2024-03-01] VITALS (7 sets, daily range): BP systolic 104–151; BP diastolic 54–95; PULSE 78–115
[2024-03-01 07:34] LABS: Hematocrit 21.3 % (37.0-47.0); Hemoglobin 7.4 g/dL (12.0-16.0); Mean Corp Hgb Conc. 34.7 g/dL (33.0-37.0); Mean Corpuscular Hgb 33.2 pg (27.0-31.0); Mean Corpuscular Volume 95.5 fL (81.0-99.0); Mean Platelet Volume 9.3 fL (7.4-10.4); Platelet Count 129 10^3/uL (130-400); Red Blood Cell Count 2.23 10^6/uL (4.20-5.40); Red Cell Dist. Width 14.1 % (11.5-14.5); White Blood Cell Count 6.4 10^3/uL (4.8-10.8)
[2024-03-01] MEDS: PRISTIQ 100 MG PO (07:37)
[2024-03-01] MEDS: PROTONIX IV 40 MG IV (07:37)
[2024-03-01] MEDS: NSS (PRESERVATIVE FREE) 10 ML IV (07:37)
[2024-03-01] MEDS: KEPPRA 500 MG IV ×2 (07:37→20:50)
[2024-03-01 07:49] LABS: Blood Urea Nitrogen 25 mg/dl (7-17); Calcium 8.3 mg/dl (8.4-10.2); Carbon Dioxide 22 mmol/L (22-30); Chloride 111 mmol/L (98-107); Estimated Creatinine Clearance 45 ml/min; Glucose 90 mg/dl (70-99); Potassium 3.8 mmol/L (3.5-5.1); Sodium 138 mmol/L (135-145); eGFR > 60.00
--- NOTE | 2024-03-01 09:17 | W.PN.GI.CBS2 ---
Today's Communication / Plan
-
Tolerating regular diet
H/H stable, no BM since admission
Await rest of hematologic workup
GI will sign off at this juncture, recommend OP FU with me and colonoscopy at that time.
Assessment / Plan
-
88yo presents with hx HTN but recent hypotension, PUD, new seizures with admission in [place] in January, daily ETOH use january(3 glasses wine daily for years), depression, TKR, hysterectomy prior admits to recent dizziness. She was
found down in bathroom in January and then had witness seizure in ER. She was intubated and has several day stay. Family did recall possible anemia during that visit but no transfusion was required. She now was noted with abdominal pain and nausea
with inability to eat. She was noted with some vomiting then witnessed coffee ground emesis in ambulance and dark stool then larger volume deep red stool with clots passed in ER. Pt did not recall EGD in past with prior PUD but hx colonoscopy many
years ago recalls as normal.
Impression
-coffee ground emesis with large volume deep red stool on arrival
EGD 02/27 with gastritis, no old or fresh blood
Unclear etiology but no further bleeding seen
-symptomatic macrocytic anemia
-positive SAYRA
-hypotension/tachycardia in ER
Now resolved
-daily ETOH use 3 drinks daily january
-recent admission to [place] for new onset seizure
-hypoalbuminemia
-leukocytosis
-hx HTN
-TKR
-depression
-hysterectomy
-prior
Plan
- EGD 02/27 showed gastritis without source of GIB found. No varices seen.
- C/w Protonix 40mg IV daily
- Hemodynamics stable now, transferred out of 02/28 and no further BM since 02/26 suggestive that GIB has stopped
- Appreciate hematology recommendations +SAYRA raises concern for hemolysis. Await haptoglobin, vit B12, folate and iron panel
- Tolerating regular diet
- At this juncture, recommend outpatient FU with me and colonoscopy then
GI will sign off please call for questions.
Subjective
Subjective
Date of Service: March 01, 2024
She is tolerating regular diet. No abd pain, nausea/vomiting. She has had no BM since day of admission. Transferred out of ICU yesterday
Objective
Data Reviewed
Laboratory Data:
Laboratory Results
03/01/24 07:02
03/01/24 07:01
Laboratory Results
PT 14.5 Sec (11.4-14.6) 02/27/24 16:21
INR 1.13 02/27/24 16:21
Total Bilirubin 0.3 mg/dl (0.2-1.3) 02/27/24 15:59
AST 19 U/L (14-36) 02/27/24 15:59
ALT 16 U/L (0-35) 02/27/24 15:59
Alkaline Phosphatase 50 U/L (38-126) 02/27/24 15:59
Vital Signs and I&O:
Vital Signs
Temp Pulse Resp BP Pulse Ox
98 F 71 22 135/78 95
03/01/24 07:03 03/01/24 07:03 03/01/24 07:03 03/01/24 07:03 03/01/24 07:03
I&O
02/29/24 03/01/24 03/02/24
06:59 06:59 06:59
Intake Total 1350 / 1450 720 / 720
Balance 1350 / 1450 720 / 720
Physical Exam
Physical Exam
GEN: No acute distress, conversant, pleasant, pale appearing
HEENT: anicteric, extraocular movements intact, clear oropharynx without exudates
GI: soft, non-distended, not tender to palpation, normal active bowel sounds, no hepatosplenomegaly
EXT: warm, well perfused, no edema bilaterally
NEURO: AAOx3, non-focal
[2024-03-01 09:26] LABS: Iron 36 ug/dl (37-170)
[2024-03-01 09:35] LABS: Percent Saturation 18 % (20-50); Total Iron Binding Capacity 198 ug/dl (265-497)
[2024-03-01 10:31] LABS: Folate 11.5 ng/ml (2.76-20); Vitamin B12 271 pg/ml (239-931)
--- NOTE | 2024-03-01 12:01 | W.PN.HOSP.TC ---
Today's Communication/Plan
-
Monitor vitals
See plan
IV iron if okay with hematology
Start vitamin B12
Monitor hemoglobin
Heme studies pending
Assessment / Plan
Assessment / Plan
General: Well Developed, Well Nourished and No Apparent Distress
HEENT: NormoCephalic, Moist mucous membranes and Atraumatic
Respiratory: Clear
Cardiac: S1/S2 and Regular Rhythm; No Murmur or Rub
GI: Soft, Non Tender, Non Distended and Normal Bowel Sounds
Musculoskeletal: No Clubbing, No Cyanosis and No Edema
Neuro: AO x 3 and Nonfocal/grossly intact
Psych: Calm
Acute blood loss anemia likely from coffee-ground emesis likely from upper GI bleed
-2 units ordered however transfusion delayed due to multiple antibodies. Suspect some autoimmune component. retic mildly high; SAYRA +; Multiple studies pending
Hemoglobin was in the 5's, finally received blood transfusion, 2 units. Hemoglobin now 7.4
s/p EGD, without any bleeding, showed gastritis.
Now off octreotide drip, ceftriaxone since no varices.
Continue with PPI
Positive SAYRA raises concern for hemolysis. Hematology following.
Now on regular diet
monitor H/H
Iron deficient; IV iron if ok with hematology
Low vitamin B12
replete
# History of seizure
-Keppra continued
# History of dizziness
#depression
desvenlafaxine continued
# DVT prophylaxis
-SCD
# CODE STATUS
-Full code
Anticipated Discharge: 24 - 48 hours
Subjective/Interval History
-
Date of Service: March 01, 2024
denies pian
Objective Data
-
Labs:
Laboratory Results
03/01/24 03/01/24
07:01 07:02
WBC 6.4
Hgb 7.4 L
Hct 21.3 L
Plt Count 129 L
Sodium 138
Potassium 3.8
Chloride 111 H
Carbon Dioxide 22
BUN 25 H
Creatinine 0.8
Glucose 90
Calcium 8.3 L
Vital Signs:
Vital Signs
Temp Pulse Resp BP Pulse Ox
98.8 F 81 22 132/76 99
03/01/24 11:45 03/01/24 11:45 03/01/24 11:45 03/01/24 11:45 03/01/24 11:45
I&O
02/29/24 03/01/24 03/02/24
06:59 06:59 06:59
Intake Total 1350 / 1450 720 / 720
Balance 1350 / 1450 720 / 720
[2024-03-01] MEDS: FERRLECIT 110 MG IV (13:42)
[2024-03-01] MEDS: VITAMIN B-12 1000 MCG PO (13:42)
[2024-03-01 19:29] LABS: Haptoglobin 141 mg/dL (30-200)
[2024-03-02] VITALS (8 sets, daily range): BP systolic 109–158; BP diastolic 63–93; PULSE 73–117; O2SAT 97
[2024-03-02 07:20] LABS: Hematocrit 22.4 % (37.0-47.0); Hemoglobin 7.8 g/dL (12.0-16.0); Mean Corp Hgb Conc. 34.8 g/dL (33.0-37.0); Mean Corpuscular Hgb 33.2 pg (27.0-31.0); Mean Corpuscular Volume 95.3 fL (81.0-99.0); Mean Platelet Volume 9.5 fL (7.4-10.4); Platelet Count 150 10^3/uL (130-400); Red Blood Cell Count 2.35 10^6/uL (4.20-5.40); Red Cell Dist. Width 14.2 % (11.5-14.5); White Blood Cell Count 6.8 10^3/uL (4.8-10.8)
[2024-03-02 07:46] LABS: Blood Urea Nitrogen 21 mg/dl (7-17); Calcium 8.1 mg/dl (8.4-10.2); Carbon Dioxide 22 mmol/L (22-30); Chloride 110 mmol/L (98-107); Estimated Creatinine Clearance 52 ml/min; Glucose 82 mg/dl (70-99); Potassium 3.5 mmol/L (3.5-5.1); Sodium 135 mmol/L (135-145); eGFR > 60.00
[2024-03-02] MEDS: NSS (PRESERVATIVE FREE) 10 ML IV (09:45)
[2024-03-02] MEDS: KEPPRA 500 MG IV ×2 (09:45→20:04)
[2024-03-02] MEDS: PRISTIQ 100 MG PO (09:46)
[2024-03-02] MEDS: PROTONIX IV 40 MG IV (09:47)
[2024-03-02] MEDS: VITAMIN B-12 1000 MCG PO (09:47)
--- NOTE | 2024-03-02 10:57 | W.PN.HOSP.TC ---
Today's Communication/Plan
-
Would like to see how she does with the PT/OT evaluation and still has some symptoms that sound orthostatic
Hematology still following in regards to hemolytic workup
Continue IV iron
Continue to monitor H&H and chemistries
Probably another 24 hours
Assessment / Plan
Assessment / Plan
General: Well Developed, Well Nourished and No Apparent Distress
HEENT: NormoCephalic, Moist mucous membranes and Atraumatic
Respiratory: Clear
Cardiac: S1/S2 and Regular Rhythm; No Murmur or Rub
GI: Soft, Non Tender, Non Distended and Normal Bowel Sounds
Musculoskeletal: No Clubbing, No Cyanosis and No Edema
Neuro: AO x 3 and Nonfocal/grossly intact
Psych: Calm
Acute blood loss anemia likely from coffee-ground emesis likely from upper GI bleed
-2 units ordered however transfusion delayed due to multiple antibodies. Suspect some autoimmune component. retic mildly high; SAYRA +; Multiple studies pending
Hemoglobin was in the 5's, finally received blood transfusion, 2 units. Hemoglobin now 7.4
s/p EGD, without any bleeding, showed gastritis.
Now off octreotide drip, ceftriaxone since no varices.
Continue with PPI
Positive SAYRA raises concern for hemolysis. Hematology following.
Now on regular diet
monitor H/H
Iron deficient; IV iron if ok with hematology
Low vitamin B12
replete
# History of seizure
-Keppra continued
# History of dizziness
#depression
desvenlafaxine continued
# DVT prophylaxis
-SCD
# CODE STATUS
-Full code
Anticipated Discharge: Within 24 hours
Subjective/Interval History
-
Date of Service: March 02, 2024
still has complaints of feeling weak and when she stands up she feels a haziness around her head and change in vision
Objective Data
-
Labs:
Laboratory Results
03/02/24
06:30
WBC 6.8
Hgb 7.8 L
Hct 22.4 L
Plt Count 150
Sodium 135
Potassium 3.5
Chloride 110 H
Carbon Dioxide 22
BUN 21 H
Creatinine 0.7
Glucose 82
Calcium 8.1 L
Vital Signs:
Vital Signs
Temp Pulse Resp BP Pulse Ox
97.8 F 73 16 114/64 99
03/02/24 07:53 03/02/24 07:53 03/02/24 07:53 03/02/24 07:53 03/02/24 07:53
I&O
03/01/24 03/02/24 03/03/24
06:59 06:59 06:59
Intake Total 720 / 720 840 / 840
Balance 720 / 720 840 / 840
Review of Systems
-
History Source: Patient
Constitutional: Reports No Symptoms
EENT: Reports No Symptoms Reported and Blurry Vision
Abdomen/GI: Reports No Symptoms
Physical Exam
-
General: Well Developed
HEENT: Normocephalic
Respiratory: Clear to Auscultation
Cardiac: Regular Rhythm
GI: Soft and Nontender
Skin: Warm
Neuro: Awake, Alert, Oriented, AO x 3 and No Motor Deficits
Data Reviewed
-
Total Time Spent with Patient (in minutes): 45
Labs: Labs Reviewed by me (Hemoglobin up to 7.8)
[2024-03-02 13:11] LABS: Number Of Markers 26 markers; Source Blood
[2024-03-02] MEDS: FERRLECIT 110 MG IV (13:22)
--- NOTE | 2024-03-02 14:16 | CM ---
Patient seen in chair. CM spoke with Adelina from [facility], patient current with care. [facility], CM will update Adelina on patients discharge. CM will continue to follow for discharge planning needs.
Plan; home with [facility].
[2024-03-03] VITALS (9 sets, daily range): BP systolic 94–150; BP diastolic 51–98; PULSE 79–126; O2SAT 100
[2024-03-03 00:53] LABS: Transferrin 137 mg/dL (200-360)
[2024-03-03 07:00] LABS: Hemoglobin 7.2 g/dL (12.0-16.0); Mean Corp Hgb Conc. 34.4 g/dL (33.0-37.0); Mean Corpuscular Volume 95.9 fL (81.0-99.0); Mean Platelet Volume 9.4 fL (7.4-10.4); Platelet Count 147 10^3/uL (130-400); Red Blood Cell Count 2.18 10^6/uL (4.20-5.40); Red Cell Dist. Width 14.6 % (11.5-14.5); White Blood Cell Count 7.6 10^3/uL (4.8-10.8)
[2024-03-03 07:04] LABS: Hematocrit 20.9 % (37.0-47.0)
[2024-03-03 07:45] LABS: Blood Urea Nitrogen 20 mg/dl (7-17); Carbon Dioxide 23 mmol/L (22-30); Chloride 111 mmol/L (98-107); Estimated Creatinine Clearance 45 ml/min; Glucose 84 mg/dl (70-99); Potassium 3.3 mmol/L (3.5-5.1); Sodium 136 mmol/L (135-145); eGFR > 60.00
--- NOTE | 2024-03-03 07:51 | PTCARENOTE ---
Hgb 7.2 this am - hospitalist notified
[2024-03-03] MEDS: NSS (PRESERVATIVE FREE) 10 ML IV (07:52)
[2024-03-03] MEDS: PRISTIQ 100 MG PO (07:53)
[2024-03-03] MEDS: PROTONIX IV 40 MG IV (07:53)
[2024-03-03] MEDS: KEPPRA 500 MG IV ×2 (07:53→20:29)
[2024-03-03] MEDS: VITAMIN B-12 1000 MCG PO (07:53)
--- NOTE | 2024-03-03 10:57 | W.PN.HOSP.TC ---
Today's Communication/Plan
-
Will give another unit of packed red blood cells today
Assess for orthostatic changes tomorrow
Await further hematology input
May have to reconsider gastroenterology input for possible colonoscopy although family may be hesitant to pursue
Assessment / Plan
Assessment / Plan
General: Well Developed, Well Nourished and No Apparent Distress
HEENT: NormoCephalic, Moist mucous membranes and Atraumatic
Respiratory: Clear
Cardiac: S1/S2 and Regular Rhythm; No Murmur or Rub
GI: Soft, Non Tender, Non Distended and Normal Bowel Sounds
Musculoskeletal: No Clubbing, No Cyanosis and No Edema
Neuro: AO x 3 and Nonfocal/grossly intact
Psych: Calm
Acute blood loss anemia likely from coffee-ground emesis likely from upper GI bleed
-2 units ordered however transfusion delayed due to multiple antibodies. Suspect some autoimmune component. retic mildly high; SAYRA +; Multiple studies pending
Hemoglobin was in the 5's, finally received blood transfusion, 2 units. Hemoglobin now 7.4
s/p EGD, without any bleeding, showed gastritis.
Now off octreotide drip, ceftriaxone since no varices.
Continue with PPI
Positive SAYRA raises concern for hemolysis. Hematology following. Haptoglobin within normal limit
Now on regular diet
monitor H/H
Iron deficient; IV iron if ok with hematology
-Remains symptomatic at hemoglobin 7.2 will give another unit of packed red blood cells today hematology to reevaluate
-Have also spoken to the gastroenterology if no further concern for hemolysis may have to revisit possible colonoscopy to be does not as inpatient/
Low vitamin B12
replete
# History of seizure
-Keppra continued
# History of dizziness
#depression
desvenlafaxine continued
# DVT prophylaxis
-SCD
# CODE STATUS
-Full code
Anticipated Discharge: 24 - 48 hours
Subjective/Interval History
-
Date of Service: March 03, 2024
Remains with positional changes with pressure when she gets out of bed with blurring of her vision and weakness
Objective Data
-
Labs:
Laboratory Results
03/03/24
06:41
WBC 7.6
Hgb 7.2 L
Hct 20.9 L*
Plt Count 147
Sodium 136
Potassium 3.3 L
Chloride 111 H
Carbon Dioxide 23
BUN 20 H
Creatinine 0.8
Glucose 84
Calcium 8.0 L
Vital Signs:
Vital Signs
Temp Pulse Resp BP Pulse Ox
98.1 F 69 16 94/59 98
03/03/24 07:43 03/03/24 07:43 03/03/24 07:43 03/03/24 07:43 03/03/24 07:43
I&O
03/02/24 03/03/24 03/04/24
06:59 06:59 06:59
Intake Total 840 / 840 1020 / 1020
Balance 840 / 840 1020 / 1020
Review of Systems
-
History Source: Patient
Constitutional: Reports Fatigue and Weakness
EENT: Reports Blurry Vision (When she stands up)
Respiratory: Reports No Symptoms
Physical Exam
-
General: Well Developed
HEENT: Normocephalic and PERRLA
Cardiac: Regular Rhythm
GI: Soft and Nontender
Neuro: Awake, Alert, Oriented, AO x 3 and No Motor Deficits
Psych: Calm
Data Reviewed
-
Total Time Spent with Patient (in minutes): 67
Labs: Labs Reviewed by me (Hemoglobin down to 7.2/potassium 3.3)
--- NOTE | 2024-03-03 11:17 | CM ---
Patient seen with daughter, also spoke with other daughter Nandini on phone. Patient resides with daughter Nandini, will return home with [facility], would like palliative care in addition to VN services. Per Adelina at [facility], they work with [facility] Patient not for discharge today. CM will continue to follow for discharge planning needs.
Plan; home with [facility] and Pal referral.
--- NOTE | 2024-03-03 12:01 | W.PN.ONC ---
Today's Communication / Plan
-
1 unit of PRBC transfusion.
Repeat CBC with differential in the am tomorrow.
Hb >8, patient is stable to be discharged from Hemtology perspective.
Impression
Impression
88 yo F presents to the hospital with hematemesis diagnosed with blood loss anemia complains of dizziness today.
positive SAYRA
Plan
Plan
1. Anemia
No active bleeding noted in endoscopy, s/p 2 unites of blood transfusion.
Hb 4/16 - 7.2
Patient is receiving Iron and Vitamin B12 supplementation
Another unit of PRBC today.
repeat CBC with differential tmorrow.
Positive SAYRA
reticulocyte count elevated to 3.5%
haptoglobin levels 141.
hemolysis less likely.
Flow cytometry results - 29% of leukocytes are positive for CD+ marker. Not clinically significant for CLL.
Monaclonal B cell lymphocytosis.
Subjective/Objective
Subjective/Objective
Dizziness, and fatigue.
fatigue improved but has dizziness.
Vital Signs:
Vital Signs
Temp Pulse Resp BP Pulse Ox
98.1 F 69 16 94/59 98
03/03/24 07:43 03/03/24 07:43 03/03/24 07:43 03/03/24 07:43 03/03/24 07:43
Lab Results:
Laboratory Data
WBC 7.6 10^3/uL (4.8-10.8) 03/03/24 06:41
Hgb 7.2 g/dL (12.0-16.0) L 03/03/24 06:41
Plt Count 147 10^3/uL (130-400) 03/03/24 06:41
PT 14.5 Sec (11.4-14.6) 02/27/24 16:21
INR 1.13 02/27/24 16:21
eGFR > 60.00 03/03/24 06:41
[2024-03-03] MEDS: KLOR-CON 20 MEQ PO (12:21)
[2024-03-03] MEDS: FERRLECIT 110 MG IV (12:23)
[2024-03-04] VITALS (8 sets, daily range): BP systolic 120–158; BP diastolic 73–91; PULSE 95–108
--- NOTE | 2024-03-04 04:53 | DOWNTIME ---
There was a [employer] Client Cpr Instructor Downtime on 03/04/2024 from 0100 to 03/04/2024 at 0439. Downtime documentation of patient's care, including medication administrations, has been reconciled in the electronic record per guidelines. Refer to the
patient's paper chart under the miscellaneous tab to see printed paper medication records and downtime forms.
[2024-03-04] MEDS: VITAMIN B-12 1000 MCG PO (08:26)
[2024-03-04] MEDS: NSS (PRESERVATIVE FREE) 10 ML IV (08:26)
[2024-03-04] MEDS: PRISTIQ 100 MG PO (08:26)
[2024-03-04] MEDS: PROTONIX IV 40 MG IV (08:26)
[2024-03-04] MEDS: KEPPRA 500 MG IV ×2 (08:26→20:16)
--- NOTE | 2024-03-04 09:15 | W.PN.HOSP.TC ---
Today's Communication/Plan
-
Will see how she does with PT hopefully today without dizziness
If hemoglobin above 8 and improved discharge plan for tomorrow
Hematology request follow-up CBC by PCP and continue B12 supplementation and oral iron 3 times weekly/no outpatient hematology follow-up follow-up recommended unless anemia persists
Assessment / Plan
Assessment / Plan
General: Well Developed, Well Nourished and No Apparent Distress
HEENT: NormoCephalic, Moist mucous membranes and Atraumatic
Respiratory: Clear
Cardiac: S1/S2 and Regular Rhythm; No Murmur or Rub
GI: Soft, Non Tender, Non Distended and Normal Bowel Sounds
Musculoskeletal: No Clubbing, No Cyanosis and No Edema
Neuro: AO x 3 and Nonfocal/grossly intact
Psych: Calm
Acute blood loss anemia likely from coffee-ground emesis likely from upper GI bleed
-2 units ordered however transfusion delayed due to multiple antibodies. Suspect some autoimmune component. retic mildly high; SAYRA +; haptoglobin however is normal virtually ruling out hemolysis
Hemoglobin was in the 5's, finally received blood transfusion, 2 units. Hemoglobin now 7.4>> 7.2 yesterday and still symptomatic got another unit of blood making total of 3 /today's H&H still pending
s/p EGD, without any bleeding, showed gastritis.
Now off octreotide drip, ceftriaxone since no varices.
Continue with PPI
Positive SAYRA raises concern for hemolysis. Hematology following. Haptoglobin within normal limit however
Now on regular diet
monitor H/H
Iron deficient; IV iron if ok with hematology
-Remains symptomatic at hemoglobin 7.2 will give another unit of packed red blood cell/if hemoglobin above 8 likely discharge
-Hematology recommending monitoring CBC with differential by PCP and continue B12 supplementation oral iron 3 times a week
-Have also spoken to the gastroenterology if no further concern for hemolysis may have to revisit possible colonoscopy to be does not as inpatient/capsule endoscopy?
Low vitamin B12
replete
# History of seizure
-Keppra continued
# History of dizziness
#depression
desvenlafaxine continued
# DVT prophylaxis
-SCD
# CODE STATUS
-Full code
Anticipated Discharge: Within 24 hours
Subjective/Interval History
-
Date of Service: March 04, 2024
Will wait to see if she still has some dizziness during physical therapy today blood work still pending from posttransfusion. Denies any other present symptoms. In bed
Objective Data
-
Labs:
Laboratory Results
03/04/24
08:37
WBC Pending
Hgb Pending
Hct Pending
Plt Count Pending
Sodium Pending
Potassium Pending
Chloride Pending
Carbon Dioxide Pending
BUN Pending
Creatinine Pending
Glucose Pending
Calcium Pending
Vital Signs:
Vital Signs
Temp Pulse Resp BP Pulse Ox
98.2 F 97 16 122/74 94
03/04/24 07:55 03/04/24 07:55 03/04/24 07:55 03/04/24 07:55 03/04/24 07:55
I&O
03/03/24 03/04/24 03/05/24
06:59 06:59 06:59
Intake Total 1020 / 1020 1470 / 1470
Balance 1020 / 1020 1470 / 1470
Review of Systems
-
History Source: Patient and Family
Constitutional: Reports Weakness
Cardiac: Reports No Symptoms
Abdomen/GI: Reports No Symptoms
Neuro: Reports Dizzy
Physical Exam
-
General: Well Developed
HEENT: Normocephalic
Respiratory: Clear to Auscultation
Cardiac: Regular Rhythm
GI: Soft, Nontender and Nondistended
Musculoskeletal: No Clubbing
Psych: Calm
Data Reviewed
-
Total Time Spent with Patient (in minutes): 56
Labs: Labs Reviewed by me (Today's H&H is still pending after transfusion)
[2024-03-04 09:34] LABS: Hematocrit 24.2 % (37.0-47.0); Hemoglobin 8.3 g/dL (12.0-16.0); Mean Corp Hgb Conc. 34.3 g/dL (33.0-37.0); Mean Corpuscular Hgb 33.2 pg (27.0-31.0); Mean Corpuscular Volume 96.8 fL (81.0-99.0); Mean Platelet Volume 9.6 fL (7.4-10.4); Platelet Count 157 10^3/uL (130-400); Red Cell Dist. Width 15.5 % (11.5-14.5); White Blood Cell Count 8.6 10^3/uL (4.8-10.8)
[2024-03-04 10:14] LABS: Blood Urea Nitrogen 19 mg/dl (7-17); Calcium 8.4 mg/dl (8.4-10.2); Carbon Dioxide 25 mmol/L (22-30); Chloride 107 mmol/L (98-107); Estimated Creatinine Clearance 52 ml/min; Glucose 82 mg/dl (70-99); Magnesium 1.6 mg/dl (1.6-2.3); Potassium 3.9 mmol/L (3.5-5.1); Sodium 134 mmol/L (135-145); eGFR > 60.00
--- NOTE | 2024-03-04 11:50 | CM ---
Patient seen with daughter. Referral has been sent to Palliative Care. Plan for patient to return home with [facility] and Palliative care. CM spoke with patients other daughter, Nandini, on phone to provide update. CM will continue to follow
for discharge planning needs.
Plan; home with [facility] and PAL care.
--- NOTE | 2024-03-04 12:11 | W.PN.ONC ---
Today's Communication / Plan
-
follow up om CBC.
Impression
Impression
88 yo F presents to the hospital with hematemesis diagnosed with blood loss anemia complains of dizziness today.
positive SAYRA
Plan
Plan
1. Anemia
No active bleeding noted in endoscopy, s/p 2 unites of blood transfusion.
Hb 03/03 - 7.2 s/p 1 unit of pRBC. Hb on 03/04 - 8.3
Patient is receiving Iron and Vitamin B12 supplementation
stable for discharge from hematology perspective.
Positive SAYRA
reticulocyte count elevated to 3.5%
haptoglobin levels 141.
hemolysis less likely.
Flow cytometry results - 29% of leukocytes are positive for CD+ marker. Not clinically significant for CLL.
Monaclonal B cell lymphocytosis.
Subjective/Objective
Subjective/Objective
Dizziness.
Vital Signs:
Vital Signs
Temp Pulse Resp BP Pulse Ox
97.8 F 96 16 138/86 94
03/04/24 12:01 03/04/24 12:01 03/04/24 12:01 03/04/24 12:01 03/04/24 12:01
Lab Results:
Laboratory Data
WBC 8.6 10^3/uL (4.8-10.8) 03/04/24 08:37
Hgb 8.3 g/dL (12.0-16.0) L 03/04/24 08:37
Plt Count 157 10^3/uL (130-400) 03/04/24 08:37
PT 14.5 Sec (11.4-14.6) 02/27/24 16:21
INR 1.13 02/27/24 16:21
eGFR > 60.00 03/04/24 08:37
[2024-03-04] MEDS: FERRLECIT 110 MG IV (13:38)
[2024-03-05 03:00] VITALS: BP 103/83
[2024-03-05 08:00] VITALS: BP 142/71
[2024-03-05] MEDS: VITAMIN B-12 1000 MCG PO (09:19)
[2024-03-05] MEDS: KEPPRA 500 MG IV ×2 (09:19→20:55)
[2024-03-05] MEDS: PROTONIX IV 40 MG IV (09:19)
[2024-03-05] MEDS: PRISTIQ 100 MG PO (09:19)
[2024-03-05] MEDS: NSS (PRESERVATIVE FREE) 10 ML IV (09:19)
[2024-03-05 09:44] VITALS: BP 117/78; BP 123/85; BP 145/77; BP 151/80; PULSE 110; PULSE 79; PULSE 89; O2SAT 97
--- NOTE | 2024-03-05 09:50 | W.PN.HOSP.TC ---
Today's Communication/Plan
-
Continue thigh-high teds attempts at ambulation with PT
Continue orthostatic checks
Add meclizine and midodrine
Have discussed case with neurology and will see on consult
Assessment / Plan
Assessment / Plan
General: Well Developed, Well Nourished and No Apparent Distress
HEENT: NormoCephalic, Moist mucous membranes and Atraumatic
Respiratory: Clear
Cardiac: S1/S2 and Regular Rhythm; No Murmur or Rub
GI: Soft, Non Tender, Non Distended and Normal Bowel Sounds
Musculoskeletal: No Clubbing, No Cyanosis and No Edema
Neuro: AO x 3 and Nonfocal/grossly intact
Psych: Calm
Acute blood loss anemia likely from coffee-ground emesis likely from upper GI bleed
-2 units ordered however transfusion delayed due to multiple antibodies. Suspect some autoimmune component. retic mildly high; SAYRA +; haptoglobin however is normal virtually ruling out hemolysis
Hemoglobin was in the 5's, finally received blood transfusion, 2 units. Hemoglobin now 7.4>> 7.2 yesterday and still symptomatic got another unit of blood making total of 3 /today's H&H still pending
s/p EGD, without any bleeding, showed gastritis.
Now off octreotide drip, ceftriaxone since no varices.
Continue with PPI
Positive SAYRA raises concern for hemolysis. Hematology following. Haptoglobin within normal limit however
Now on regular diet
monitor H/H
Iron deficient; IV iron if ok with hematology
-Remains symptomatic at hemoglobin 7.2 will give another unit of packed red blood cell/if hemoglobin above 8 likely discharge
-Hematology recommending monitoring CBC with differential by PCP and continue B12 supplementation oral iron 3 times a week
-Have also spoken to the gastroenterology if no further concern for hemolysis may have to revisit possible colonoscopy to be does not as inpatient/capsule endoscopy?
Low vitamin B12
replete
# History of seizure
-Diagnosed recently and had recurrence during hospitalization at [place]
-Keppra continued
# History of dizziness
-Predates her presents admission by several months
-Seems to have reproducible symptoms with head movement and Casi-Hallpike maneuvers
-She is also persistently having orthostatic hypotension with also tachycardia
-Thigh-high MELODY stockings applied
-Will try meclizine
-Midodrine during the day
#depression
desvenlafaxine continued
# DVT prophylaxis
-SCD
# CODE STATUS
-Full code
Anticipated Discharge: Within 24 hours
Subjective/Interval History
-
Date of Service: March 05, 2024
Patient feels well as long as she is lying down since she stands up and tries to ambulate she refers dizziness this is aggravated by head movement from [id number] even sitting up in side of bed later noted by PT to be orthostatic with elevated
heart rate and drop in blood pressure of over 30 points
Objective Data
-
Vital Signs:
Vital Signs
Temp Pulse Resp BP Pulse Ox
97.9 F 83 18 142/71 93
03/05/24 08:00 03/05/24 08:00 03/05/24 08:00 03/05/24 08:00 03/05/24 08:00
I&O
03/04/24 03/05/24 03/06/24
06:59 06:59 06:59
Intake Total 1470 / 1470 1100 / 1100
Balance 1470 / 1470 1100 / 1100
Review of Systems
-
History Source: Patient
Constitutional: Reports Weakness
Respiratory: Reports No Symptoms
Cardiac: Reports No Symptoms
Abdomen/GI: Reports No Symptoms
Neuro: Reports Dizzy
Endocrine: Reports No Symptoms
Physical Exam
-
General: Well Developed
HEENT: Normocephalic and Other (Casi-Hallpike maneuvers reproduce symptoms)
Respiratory: Clear to Auscultation
Cardiac: Regular Rhythm
GI: Soft
Musculoskeletal: No Clubbing
Neuro: Awake, Alert, Oriented, AO x 3, Nonfocal/Grossly Intact and Other (Vertiginous symptoms with head movement and ambulation/orthostatic hypotension value)
Psych: Calm
Data Reviewed
-
Total Time Spent with Patient (in minutes): 56
Labs: Labs Reviewed by me (Latest hemoglobin 8.3)
--- NOTE | 2024-03-05 11:40 | W.PN.ONC ---
Today's Communication / Plan
-
Continue to monitor CBC, no CBC for review today
No recurrent episodes of noticeable clinical bleeding
Patient received transfusion and currently receiving parenteral iron and B12 supplementation
Will follow
Impression
Impression
88 yo F presents to the hospital with hematemesis diagnosed with blood loss anemia complains of dizziness today.
positive SAYRA
Subjective/Objective
Subjective/Objective
No new complaints sitting in chair comfortable.
Vital Signs:
Vital Signs
Temp Pulse Resp BP Pulse Ox
97.9 F 83 18 142/71 93
03/05/24 08:00 03/05/24 08:00 03/05/24 08:00 03/05/24 08:00 03/05/24 08:00
PE: Unchanged
Lab Results:
Laboratory Data
WBC 8.6 10^3/uL (4.8-10.8) 03/04/24 08:37
Hgb 8.3 g/dL (12.0-16.0) L 03/04/24 08:37
Plt Count 157 10^3/uL (130-400) 03/04/24 08:37
PT 14.5 Sec (11.4-14.6) 02/27/24 16:21
INR 1.13 02/27/24 16:21
eGFR > 60.00 03/04/24 08:37
[2024-03-05] MEDS: FERRLECIT 110 MG IV (13:12)
[2024-03-05] MEDS: ProAmatine 2.5 MG PO ×2 (13:12→17:56)
--- NOTE | 2024-03-05 13:48 | CON.NEURO4 ---
Consultation - Neurology 4
-
CONSULTING PHYSICIAN: Roma Solis
REFERRING PHYSICIAN: Hospitalist
DICTATED BY: Roma Solis
DATE/TIME OF REQUEST: 03/05/24
DATE/TIME OF CONSULTATION: 03/05/24
Reason for Consultation: Dizziness
History of Present Illness:
Patient is an 88-year-old woman with a past ministry of epilepsy, peptic ulcer disease who presented with stomach upset and nausea since Saturday and was admitted on 02/26.
She has been being treated for presumed upper GI bleed has required blood transfusions and was treated with octreotide as well as IV PPI. She underwent endoscopy on 02/27 which found gastritis
Patient reports that she has had dizziness which was clear onset but has been chronic, most days of the week for about the past 5 years. It is fine when she is sitting still but generally is worsened when she is moving her head moving about
standing up or walking. Notes that has been somewhat more noticeable more recently especially when standing.
No recent new hearing changes or tinnitus no double vision dysarthria dysphagia unilateral weakness or paresthesia.
No history of migraine headaches.
She has not had any vestibular therapy to her knowledge.
She did have evaluation she thinks by ENT and neurology in the past but not sure which specialist she saw, was told she had vertigo.
She had had a recent hospitalization at [place] and has had witnessed seizure activity was apparently intubated for 3 days and has been on levetiracetam 500 mg twice twice a day.
Past Medical History: Peptic ulcer disease, anxiety, epilepsy
Surgical History: , right knee replacement, hysterectomy
Family History: Reviewed and noncontributory
Social History: Retired, no alcohol use since the beginning of January previously drank around 2 to 3 glasses of wine no tobacco no recreational drugs
Allergies: No known drug allergies
Review of Symptoms:
Patient denies any fever, headache, chest pain, shortness of breath, GI or symptoms.
Physical Exam:
Elderly woman no signs of head or neck trauma eyes clear oropharynx clear, ears outwardly normal, no ptosis, neck with no masses, heart rate regular breathing unlabored abdomen soft nontender no lower extremity edema
Neurologic Examination:
The patient is awake, alert and oriented x 3. She is able to follow commands and answer questions appropriately. There is no aphasia or dysarthria. On cranial nerve assessment, pupils are 3 mm bilateral, round and reactive to light and
accommodation. Visual lopez are full. Extraocular movements are intact. No nystagmus. Normal head impulse test. Facial sensations are intact and bilaterally symmetrical, there is no facial asymmetry. Hearing is intact bilaterally to normal
conversation volume. Tongue palate and uvula are midline. Sternocleidomastoid strengths are full bilaterally. Motor strengths are 5/5 bilateral upper and lower extremities on medical research [place] scale. There is no drift or involuntary movement
noted. Deep tendon reflexes are 2+ bilateral upper and lower extremities and Babinski is absent bilaterally. Sensations of pain, touch, temperature and vibration are intact and bilaterally symmetrical. There was no extinction noted on double
simultaneous stimulation. Coordination is intact by finger to nose bilaterally.
Neuro Imaging: None
Impressions
Chronic episodic dizziness which is worsened with position and head movement. 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 Most likely worsened by anemia, orthostatic hypotension. No history migraines.
Recommendations:
1. Meclizine 12.5 mg TID acceptable for 1 week, would not continue indefinitely given can produce some sedation in elderly patients
2. Would benefit from PT focused on vestibular therapy
3. In the future may benefit from Effexor or Fluoxetine which can sometimes help with persistent postural perceptual dizziness
4. Not seeing any indication for brain imaging
5. MELODY stockings, hydration, consider following orthostatic vital signs daily
Discussed patient care with: Patient and hosptialist
--- NOTE | 2024-03-05 13:48 | CM ---
CM reviewed chart, consult for neuro. Patient seen bedside, plan for discharge home with [facility] and Palliative care when stable. CM will continue to follow for discharge planning needs.
Plan; home with [facility] and PAL care.
[2024-03-05 16:00] VITALS: BP 147/93
[2024-03-05] MEDS: ANTIVERT 12.5 MG PO ×2 (16:12→20:55)
[2024-03-05 23:32] VITALS: BP 139/82
[2024-03-06 00:33] VITALS: BP 121/83; BP 137/93; BP 139/82; PULSE 103; PULSE 116; PULSE 95
[2024-03-06 08:06] VITALS: BP 124/69
[2024-03-06 08:07] VITALS: BP 104/71; BP 124/69; BP 144/79; PULSE 100; PULSE 82; PULSE 97
[2024-03-06 09:04] LABS: Hematocrit 25.1 % (37.0-47.0); Hemoglobin 8.7 g/dL (12.0-16.0); Mean Corp Hgb Conc. 34.7 g/dL (33.0-37.0); Mean Corpuscular Hgb 34.5 pg (27.0-31.0); Mean Corpuscular Volume 99.6 fL (81.0-99.0); Mean Platelet Volume 9.8 fL (7.4-10.4); Platelet Count 179 10^3/uL (130-400); Red Blood Cell Count 2.52 10^6/uL (4.20-5.40); Red Cell Dist. Width 15.1 % (11.5-14.5); White Blood Cell Count 6.7 10^3/uL (4.8-10.8)
[2024-03-06 09:36] LABS: Blood Urea Nitrogen 15 mg/dl (7-17); Calcium 8.5 mg/dl (8.4-10.2); Carbon Dioxide 27 mmol/L (22-30); Chloride 103 mmol/L (98-107); Estimated Creatinine Clearance 52 ml/min; Glucose 83 mg/dl (70-99); Potassium 4.1 mmol/L (3.5-5.1); Sodium 132 mmol/L (135-145); eGFR > 60.00
[2024-03-06] MEDS: VITAMIN B-12 1000 MCG PO (09:37)
[2024-03-06] MEDS: PRISTIQ 100 MG PO (09:37)
[2024-03-06] MEDS: ANTIVERT 12.5 MG PO (09:37)
[2024-03-06] MEDS: ProAmatine 2.5 MG PO ×2 (09:37→13:04)
[2024-03-06] MEDS: PROTONIX IV 40 MG IV (09:38)
[2024-03-06] MEDS: KEPPRA 500 MG IV (09:38)
[2024-03-06] MEDS: NSS (PRESERVATIVE FREE) 10 ML IV (09:38)
--- NOTE | 2024-03-06 10:07 | W.DS.TRANS ---
DC Summary - [employer]iller
-
Discharge Instructions:
Discharge Diagnosis/Procedures Upper GI bleed
Multifactorial anemia/from blood loss/B12
deficiency/iron deficiency
History of chronic dizziness benign positional
vertigo/
Orthostatic hypotension
Diet No restrictions
Activity Other activity
Additional Activity Be very careful with sudden changes in position
from sitting to standing and from lying to
standing or lying to sitting/where thigh-high
MELODY stockings when out of bed
Driving Restrictions No driving
Other Services VN,PT,OT
Instructions:
Stand-Alone Forms:
Changes to Home Medications: No
Discharge Medications:
DC Medications w/original date entered in [employer] [facility]
aspirin 81 mg tablet,delayed release 81 mg PO DAILY Blood Clot Prevention/Tx 02/27/24
desvenlafaxine succinate 100 mg tablet,extended release 24 hr 100 mg PO DAILY Mental Health/Anxiety 02/27/24
levetiracetam 500 mg tablet 500 mg PO Q12H Seizures 02/27/24
cyanocobalamin (vitamin B-12) 1,000 mcg tablet 1,000 mcg PO DAILY Supplement #30 tabs 03/06/24
ferrous gluconate 324 mg (38 mg iron) tablet See Rx Instructions .Route .COMPLEX #10 tabs 03/06/24
meclizine 12.5 mg tablet 12.5 mg PO TID Neurological Condition #30 tabs 03/06/24
midodrine 5 mg tablet 2.5 mg (1/2 x 5 mg) PO TID@0800,1300,1800 Blood pressure #90 tabs 03/06/24
Home Medication Changes
Pending Results: No
Total time spent discharging patient (in min): 45
--- NOTE | 2024-03-06 12:00 | W.PN.ONC ---
Documented by User: America Tucker MD, Resident 03/06/24 12:04
Today's Communication / Plan
-
Plan for discharge.
Impression
Impression
88 yo F presents to the hospital with hematemesis diagnosed with blood loss anemia, Dizziness improved. Now she only has dizziness when she walks.
positive SAYRA
Plan
Plan
1. Anemia
No active bleeding noted in endoscopy, s/p 2 unites of blood transfusion.
Hb 03/03 - 7.2 s/p 1 unit of pRBC. Hb on 03/04 - 8.3, Hb improving, 03/05 - 8.7
Patient is receiving Iron and Vitamin B12 supplementation
stable for discharge from hematology perspective.
Positive SAYRA
reticulocyte count elevated to 3.5%
haptoglobin levels 141.
hemolysis less likely.
Flow cytometry results - 29% of leukocytes are positive for CD+ marker. Not clinically significant for CLL.
Monaclonal B cell lymphocytosis.
Subjective/Objective
Subjective/Objective
No complaints today.
Vital Signs:
Vital Signs
Temp Pulse Resp BP Pulse Ox
97.9 F 82 18 124/69 96
03/06/24 08:06 03/06/24 08:06 03/06/24 08:06 03/06/24 08:06 03/06/24 08:06
Lab Results:
Laboratory Data
WBC 6.7 10^3/uL (4.8-10.8) 03/06/24 07:53
Hgb 8.7 g/dL (12.0-16.0) L 03/06/24 07:53
Plt Count 179 10^3/uL (130-400) 03/06/24 07:53
PT 14.5 Sec (11.4-14.6) 02/27/24 16:21
INR 1.13 02/27/24 16:21
eGFR > 60.00 03/06/24 07:53

Documented by User: Dejuan Kirby MD 03/06/24 14:35
Plan
Plan
1. Anemia
No active bleeding noted in endoscopy, s/p 2 unites of blood transfusion.
Hb 03/03 - 7.2 s/p 1 unit of pRBC. Hb on 03/04 - 8.3, Hb improving, 03/05 - 8.7
Patient is receiving Iron and Vitamin B12 supplementation
stable for discharge from hematology perspective.
Positive SAYRA
reticulocyte count elevated to 3.5%
haptoglobin levels 141.
hemolysis less likely.
Flow cytometry results - 29% of leukocytes are positive for CD+ marker. Not clinically significant for CLL.
Monaclonal B cell lymphocytosis.
Hematology f/u
Patient to be discharged today
Will arrange outpt hematology f/u at [facility] - for f/u of monoclonal B-cell lymphocytosis and iron def anemia
--- NOTE | 2024-03-06 12:36 | CM ---
Patient seen bedside with daughter NandiniTEE reviewed. Patients daughter not comfortable with discharge, requesting to speak to Hospitalist. TT sent to Hospitalist with update. Patient and daughter not agreeable to SNF rehab. CM will continue to
follow for discharge planning needs.
Plan; home with [facility] and PAL care, updates sent to [facility] and [facility] care.
--- NOTE | 2024-03-06 13:37 | W.DCSUMMARY ---
Discharge Summary
Discharge Data
Date of Admission: 02/27/24
Date of Discharge: 03/06/24
-
Pending Results: No
Hospital Course
88-year-old female who presented with a history of seizure disorder along with prior history of peptic ulcer disease presented with stomach upset and was noted to have hematemesis on presentation on 26 February. She was admitted for presumptive upper
GI blood loss and underwent EGD requiring multiple blood transfusions throughout the course of her admission. She was treated with octreotide and IV PPI. An endoscopy was performed on the showing a gastritis only without active bleed. Of
note the patient has reported dizziness as a symptom for months preceding her presentation and actually relating this for the last 5 years. Presentation also noted aggravation by head movement and [place]-Hallpike maneuvers consistent with a peripheral
component such as benign. Positional vertigo and she was also orthostatic with orthostatic blood pressures dropping to it is at 30 points millimeters mercury. She denies ever undergoing vestibular rehab. Of note also the patient had had a recent
hospitalization at [facility] with was witnessed seizure activity and was placed on Keppra 500 mg twice daily which has continued. He required a total of 3 units of packed red blood cells throughout the length of admission he was seen by
the hematology service and underwent a anemic workup that included a direct antithrombolysis assay that was proved positive he also had an elevated reticulocyte count which could have been anemia in relation to her active blood loss. On further
investigation for hemolysis her haptoglobin proved to be within normal limits shutting further down to a diagnosis of hemolysis. She was found to have B12 and iron deficiency and placed on supplementation and replacement flow cytometry results
noted 29% leukocytes positive for CD plus positive marker not clinically significant for CLL however and consistent with monoclonal B-cell lymph lymphocytosis is felt by the hematology service that the patient should have follow-up CBC should her
any further anemia be warranted or noted the patient has had steadily increasing hemoglobin in the last 4 days without further signs of blood loss and more hemolysis.
She was seen by the neurology service who felt that the patient's presentation is consistent with probable benign positional vertigo recommendation was for a short-term course of meclizine but should soon to stop due to the stated side effects and
tolerance she has taken this in the past with minimal results however. She was again noted to be orthostatic and is appreciated now that the patient should be continued on midodrine 2.5 mg 3 times a day is been explained to family members that this
will only improve her postural BP changes but also may aggravate systemic hypertension and this should be followed up as an outpatient by her primary care provider. She has been instructed to continue usage of thigh-high's MELODY stockings whenever
out of bed. Neurology opinion is felt that the patient would benefit from PT focused on vestibular therapy ongoing possibly in outpatient setting and in the future may benefit from either Effexor or fluoxetine which can sometimes help with
persistent postural perceptual dizziness. There is no indication for further brain imaging
Discharge Plan
-
Patient Disposition: Home with Home Care
Discharge Diagnosis/Procedures: Upper GI bleed
Multifactorial anemia/from blood loss/B12 deficiency/iron deficiency
History of chronic dizziness benign positional vertigo/
Orthostatic hypotension
Diet: No restrictions
Activity: Other activity
Additional Activity: Be very careful with sudden changes in position from sitting to standing and from lying to standing or lying to sitting/where thigh-high MELODY stockings when out of bed
Driving Restrictions: No driving
Other Services: VN, PT and OT
Referrals:
Gema Rocha MD [Active] - (follow up with GI to consider OP colonoscopy if bleeding persist or continued anemia)
Latoya Erickson MD [Family Provider] -
Prescriptions:
New
midodrine 5 mg Tablet
2.5 mg PO TID@0800,1300,1800 Qty: 90 0RF
cyanocobalamin (vitamin B-12) 1,000 mcg Tablet
1,000 mcg PO DAILY Qty: 30 0RF
meclizine 12.5 mg Tablet
12.5 mg PO TID Qty: 30 0RF
ferrous gluconate 324 mg (38 mg iron) tablet
See Rx Instructions .ROUTE .COMPLEX Qty: 10 0RF
Rx Instructions:
324 mg orally/take 3 times weekly Saturday
Continued
levetiracetam 500 mg Tablet
500 mg PO Q12H
desvenlafaxine succinate 100 mg Tablet Extended Release 24 Hr
100 mg PO DAILY
aspirin 81 mg tablet,delayed release (DR/EC)
81 mg PO DAILY
Discharge Orders:
Discharge Patient (As Directed); Ordered 03/06/24
Ordered By: Behzad Marie
Discharge Date and Time
Print Language: [place]
== END 2024-03-06 13:38 | disposition home health service (06) | DRG 378 ==
LOC: 4 WEST ACU 17:18
PROVIDERS: Internal Medicine Gastroenterology; Physician Assistant Medical; Registered Nurse; ADMITTING PHYSICIAN Internal Medicine; ATTENDING PHYSICIAN Internal Medicine; CONSULT PHYSICIAN Internal Medicine; CONSULT PHYSICIAN Internal Medicine Critical Care Medicine; CONSULT PHYSICIAN Internal Medicine Hematology & Oncology; CONSULT PHYSICIAN Student in an Organized Health Care Education/Training Program; EMERGENCY PHYSICIAN Emergency Medicine; FAMILY PHYSICIAN Family Medicine
PROC: 0DJ08ZZ Inspection of Upper Intestinal Tract, Via Natural or Artificial Opening Endoscopic (ICD-10-PCS; 2024-02-28)
PROC: 30233N1 Transfusion of Nonautologous Red Blood Cells into Peripheral Vein, Percutaneous Approach (ICD-10-PCS; 2024-02-28)
DX: K29.71 Gastritis, unspecified, with bleeding (principal); D62 Acute posthemorrhagic anemia; K92.0 Hematemesis; F10.10 Alcohol abuse, uncomplicated; D72.820 Lymphocytosis (symptomatic); I95.1 Orthostatic hypotension; K92.1 Melena; I10 Essential (primary) hypertension; G40.909 Epilepsy, unspecified, not intractable, without status epilepticus; H81.10 Benign paroxysmal vertigo, unspecified ear; K44.9 Diaphragmatic hernia without obstruction or gangrene; E53.8 Deficiency of other specified B group vitamins; F32.A Depression, unspecified; E88.09 Other disorders of plasma-protein metabolism, not elsewhere classified; F41.9 Anxiety disorder, unspecified; Z96.651 Presence of right artificial knee joint; Z87.891 Personal history of nicotine dependence; Z87.11 Personal history of peptic ulcer disease; Z79.82 Long term (current) use of aspirin; Z80.1 Family history of malignant neoplasm of trachea, bronchus and lung; Z90.710 Acquired absence of both cervix and uterus
CPT/HCPCS: 80048; 80053; 82533; 82607; 82728; 82746; 83010; 83540; 83550; 83615; 83735; 84443; 84466; 85014; 85018; 85025; 85027; 85045; 85610; 86704; 86706; 86803; 86850; 86860; 86870; 86880; 86900; 86901; 86905; 86920; 86922; 87340; 93005; 96361; 96374; 96375; 96376; 97162; 97530; 99291; J2916; P9016

== ENCOUNTER 2024-03-10 13:48 | Inpatient (IN) | payer MEDICARE, OTHER, SELFPAY ==
[2024-03-10] VITALS (29 sets, daily range): BP systolic 91–156; BP diastolic 59–91; BMI 23.5; BMI 22.4
[2024-03-10 10:32] LABS: % Basophils 0.5 % (0-2); % Eosinophils 1.8 % (0-6); % Immature Granulocytes 0.5 % (0-0.5); % Lymphocytes 36.6 % (20.5-51.1); % Neutrophils 55.6 % (42.2-75.2); Absolute Basophils 0.1 10^3/uL (0-0.2); Absolute Eosinophils 0.2 10^3/uL (0-0.7); Absolute Immature Granulocytes 0.1 10^3/uL (0-0.05); Absolute Lymphocytes 3.4 10^3/uL (1.2-3.4); Absolute Monocytes 0.5 10^3/uL (0.1-0.6); Absolute Neutrophils 5.2 10^3/uL (1.4-6.5); Hematocrit 22.7 % (37.0-47.0); Hemoglobin 7.6 g/dL (12.0-16.0); Mean Corp Hgb Conc. 33.5 g/dL (33.0-37.0); Mean Corpuscular Hgb 33.5 pg (27.0-31.0); Mean Platelet Volume 9.1 fL (7.4-10.4); Nucleated Red Blood Cells % 0 %; Platelet Count 205 10^3/uL (130-400); Red Blood Cell Count 2.27 10^6/uL (4.20-5.40); White Blood Cell Count 9.4 10^3/uL (4.8-10.8)
--- NOTE | 2024-03-10 10:36 | ED.GENMED ---
History of Present Illness
<Trav Raymond PA-C - Last Filed: 03/10/24 11:09>
General
Chief Complaint: Vomiting Blood
Source: patient
Exam Limitations: none
Time Seen by Provider: 03/10/24 10:17
Travel History
Have you had any contact with someone who has COVID-19?: No
Do you have any symptoms of coronavirus? Fever > 100 degrees, chills, cough, shortness of breath, sore throat, loss of taste or smell, muscle aches, or headache?: No
History of Present Illness
History of Present Illness:
88-year-old female presents via EMS from home where she lives with her daughter with recurrent and persistent GI bleeding. She was very weak this morning pale and butler upon EMS arrival. She was hypoxic upon EMS arrival. She received a small fluid
bolus and was given supplemental oxygen en route and she improved. She was recently discharged from this hospital 4 days ago for GI bleeding. She had endoscopy at the visit which showed gastritis without active bleeding. She received multiple
blood transfusions while she was here and discharged she notes ongoing dark stool. Today she had an episode of maroon-colored vomit. She is on a baby aspirin. She has a history of hypotension and is on midodrine 3 times a day for this. She
denies chest pain or abdominal pain. No fever. No other complaints at this time
Past History
<Trav Raymond PA-C - Last Filed: 03/10/24 11:09>
Past History
ED Past Medical History: Seizures
ED Past Surgical History: , Gynecological and Orthopedic
Social History
Tobacco: Non-smoker
Alcohol: Former
Drug: None
Personal:
Living: with family
Employment: Retired
Phy Exam
<Trav Raymond PA-C - Last Filed: 03/10/24 11:09>
Physical Exam
Physical Exam:
General: Well-appearing female no acute respiratory distress
HEENT: Normocephalic atraumatic heart: Regular rate and rhythm no murmurs
Lungs: Clear no wheeze or rales
Abdomen: Soft nontender nondistended no guarding or rebound
Extremities: No cyanosis
Rectal exam: There is black tarry stool noted on rectal exam. This is heme positive
Course
<Trav Raymond PA-C - Last Filed: 03/10/24 11:09>
Orders/Labs/Results
Orders:
Orders
03/10/24 10:25
Complete Blood Count/With Diff Urgent
Comprehensive Metabolic Panel Urgent
03/10/24 10:35
Pantoprazole [Protonix IV] 80 mg IV NOW STA
03/10/24 10:44
Type+Screen Urgent
03/10/24 10:45
Pantoprazole 80 mg/100 ml Nss [Protonix] 80 mg in 100 ml IV Q10H
03/10/24 10:46
Blood Bank Products [* Blood Bank Products] Urgent
Blood Bank Products: *Packed RBC Leuko(PRBC's)
Quantity: 1
Transfuse Today: Yes
Reason: Bleeding
Abnormal Lab Results
03/10/24
10:25
RBC 2.27 L 10^6/uL
(4.20-5.40)
Hgb 7.6 L g/dL
(12.0-16.0)
Hct 22.7 L %
(37.0-47.0)
MCV 100.0 H fL
(81.0-99.0)
MCH 33.5 H pg
(27.0-31.0)
Abs Immat Gran (auto) 0.1 H 10^3/uL
(0-0.05)
Carbon Dioxide 21 L mmol/L
(22-30)
BUN 41 H mg/dl
(7-17)
Glucose 133 H mg/dl
(70-99)
Total Protein 5.1 L g/dl
(6.3-8.2)
Albumin 2.9 L g/dl
(3.5-5.0)
03/10/24 10:25
03/10/24 10:25
Vital Signs
Initial and Last Documented VS:
Initial Vital Signs
Pulse Resp
96 8
03/10/24 10:20 03/10/24 10:20
Last Documented Vital Signs
Temp Pulse Resp BP Pulse Ox
97.6 F 106 26 109/62 98
03/10/24 10:26 03/10/24 11:00 03/10/24 11:00 03/10/24 11:00 03/10/24 10:45
Sushmalt;Antonio Red, DO - Last Filed: 03/10/24 11:15>
Orders/Labs/Results
Orders:
Orders
03/10/24 10:25
Complete Blood Count/With Diff Urgent
Comprehensive Metabolic Panel Urgent
03/10/24 10:35
Pantoprazole [Protonix IV] 80 mg IV NOW STA
03/10/24 10:44
Type+Screen Urgent
03/10/24 10:45
Pantoprazole 80 mg/100 ml Nss [Protonix] 80 mg in 100 ml IV Q10H
03/10/24 10:46
Blood Bank Products [* Blood Bank Products] Urgent
Blood Bank Products: *Packed RBC Leuko(PRBC's)
Quantity: 1
Transfuse Today: Yes
Reason: Bleeding
Abnormal Lab Results
03/10/24
10:25
RBC 2.27 L 10^6/uL
(4.20-5.40)
Hgb 7.6 L g/dL
(12.0-16.0)
Hct 22.7 L %
(37.0-47.0)
MCV 100.0 H fL
(81.0-99.0)
MCH 33.5 H pg
(27.0-31.0)
Abs Immat Gran (auto) 0.1 H 10^3/uL
(0-0.05)
Carbon Dioxide 21 L mmol/L
(22-30)
BUN 41 H mg/dl
(7-17)
Glucose 133 H mg/dl
(70-99)
Total Protein 5.1 L g/dl
(6.3-8.2)
Albumin 2.9 L g/dl
(3.5-5.0)
03/10/24 10:25
03/10/24 10:25
Vital Signs
Initial and Last Documented VS:
Initial Vital Signs
Pulse Resp
96 8
03/10/24 10:20 03/10/24 10:20
Last Documented Vital Signs
Temp Pulse Resp BP Pulse Ox
97.6 F 106 26 109/62 98
03/10/24 10:26 03/10/24 11:00 03/10/24 11:00 03/10/24 11:00 03/10/24 10:45
<Trav Raymond PA-C - Last Filed: 03/10/24 11:09>
MDM/Problems Addressed
Differential Diagnosis Includes:
Weakness likely secondary to GI bleed/anemia. She notes ongoing bleeding since discharge. Now vomiting blood as well. Vital signs currently stable. Check labs including type and screen. Anticipate need for admission to hospital
<Trav Raymond PA-C - Last Filed: 03/10/24 11:09>
*Critical Care Note
Total Time (30-74mins, 75-104mins- exclusive of procedures): Not Applicable
<Antonio Red DO - Last Filed: 03/10/24 11:15>
*Pulse Oximetry
Patient hypoxic: no
<Trav Raymond PA-C - Last Filed: 03/10/24 11:09>
Update Note
Update Note:
Hemoglobin 7.6 down over a gram from discharge. Symptomatic from her anemia and GI bleeding. BUN elevated. Protonix ordered a unit of packed red blood cells ordered after blood consent was obtained. Admit to hospital
ED Attending Note
<Trav Raymond PA-C - Last Filed: 03/10/24 11:09>
-
Portions of this chart may have been created with voice recognition software.� Occasional wrong word or��sound alike� substitutions may have occurred due to the inherent limitations of voice recognition software.
<Antonio Red DO - Last Filed: 03/10/24 11:15>
ED Attending Note
Patient seen and examined by attending physician: Yes
I performed the substantive portion of visit, reviewed & personally made and approve the management plan that is documented in note by myself or VIDYA.: Yes
ED Attending Note:
seen with Pa, agree with a/p
88-year-old female with lower GI bleed resubmitted with the same takes aspirin no other blood thinners mildly shocky responding to volume, transfusion has been ordered PPI has been ordered GI and hospitalist have been notified
Discharge Plan
Departure
Patient Disposition: Admit
Date of Disposition: 03/10/24
Time of Disposition: 11:09
Admit to: Telemetry
Presentation/result/management discussed w/ accepting MD/DO: Hospitalist
Discharge Problem:
Acute GI bleeding
Prescriptions:
No Action
levetiracetam 500 mg Tablet
500 mg PO Q12H
desvenlafaxine succinate 100 mg Tablet Extended Release 24 Hr
100 mg PO DAILY
aspirin 81 mg tablet,delayed release (DR/EC)
81 mg PO DAILY
midodrine 5 mg Tablet
2.5 mg PO TID@0800,1300,1800 Qty: 90 0RF
cyanocobalamin (vitamin B-12) 1,000 mcg Tablet
1,000 mcg PO DAILY Qty: 30 0RF
atorvastatin [Lipitor] 40 mg Tablet
40 mg PO QPM
meclizine 12.5 mg tablet
12.5 mg PO TIDPRN PRN (Reason: DIZZYNESS)
ferrous gluconate 324 mg (38 mg iron) tablet
324 mg PO MOWEFR
Interventions
Interventions:
*Risk Screen - Suicide Last Done: 03/10/24 10:37
*General Assessment Last Done: 03/10/24 10:37
*Neglect/Abuse Screening Last Done: 03/10/24 10:37
*ED COVID-19 Vaccine History Last Done: 03/10/24 10:37
OT-Fnjpyu-Zjnjsnzmcx Assessment Last Done: 03/10/24 10:45
ED- Cardiac Assessment Last Done: 03/10/24 10:45
ED- Pulmonary Assessment Last Done: 03/10/24 10:45
Discharge Date and Time
Print Language: KENYAN
[2024-03-10 10:55] LABS: ALT (SGPT) < 10 U/L (0-35); AST (SGOT) 19 U/L (14-36); Albumin 2.9 g/dl (3.5-5.0); Alkaline Phosphatase 47 U/L (38-126); Blood Urea Nitrogen 41 mg/dl (7-17); Calcium 8.5 mg/dl (8.4-10.2); Carbon Dioxide 21 mmol/L (22-30); Chloride 106 mmol/L (98-107); Estimated Creatinine Clearance 45 ml/min; Glucose 133 mg/dl (70-99); Potassium 4.2 mmol/L (3.5-5.1); Sodium 135 mmol/L (135-145); Total Bilirubin 0.3 mg/dl (0.2-1.3); Total Protein 5.1 g/dl (6.3-8.2); eGFR > 60.00
[2024-03-10] MEDS: PROTONIX 100 IV ×2 (11:04→20:46)
[2024-03-10] MEDS: PROTONIX IV 80 MG IV (11:04)
--- NOTE | 2024-03-10 11:39 | CON.GI ---
Addendum entered and electronically signed by Carlos Rivera MD 03/10/24 15:26:
I saw and examined the patient.
The PA's note was reviewed and I agree with the note.
Comment:
Pt is a 88 year old female with h/o HTN, PUD years ago , new seizures with admission in [facility], daily ETOH use (3 glasses wine daily for years stopped in January), depression, TKR, and hysterectomy who p/w melena and vomiting maroon colored blood. She
was recently admitted on 02/26- 03/06 with coffee ground emesis and stool with clots, Hgb was 5.5 during that time, EGD performed which was non-diagnostic. Hgb improved to 8.7 on 03/06 on discharge after 3 units of PRBC's needed on admission. She was
also noted with B12 and iron deficiency (placed on iron and B12 supplementation).
Impression / Rec:
1. GIB - pt returns with episode of maroon colored vomiting and melena, no further vomiting/melena since coming to the hospital. Denies NSAID use. No abdominal pain. Last colonoscopy about 6 years ago. Source of bleeding is unclear, will plan
for push enteroscopy and colonoscopy tomorrow.
Addendum entered and electronically signed by BEAR Razo 03/10/24 13:33:
Pt does also admits to some chronic shortness of breath. Reviewed with Dr. Rivera plan for Push enteroscopy and colonoscopy tomorrow as long as heart rate stable overnight. If worsening tachycardia may need cards evaluation. Dr. Rivera to further
review with family on plan.
Original Note:
Consultation
-
Date/Time Consultation Requested: 03/10/240
Date/Time Consultation Performed: 03/10/24 1130
Requesting Provider: Hai Daniel MD
Performing Provider: BEAR Guerrero, Carlos Rivera MD
Reason for Consultation: GI bleed
Medical History
Chief Complaint / HPI
Chief Complaint: vomiting blood
History of Present Illness:
Pt is a 88yo presents with hx HTN but recent hypotension, PUD years ago , new seizures with admission in [facility] in January(per family drop in hbg 12 to 9 during admission or transfusions during that admission), daily ETOH use til January(3 glasses
wine daily for years), depression, TKR, hysterectomy and prior . She was admitted to 02/26- 03/06 with concern for upper GI bleed with coffee ground emesis and deep red stool with clots on admission. hbg was down to 5.5 after
admission and BUN 54. 4 EGD- [facility] with normal esophagus, small HH, erythema in antrum, nodular mucosa in prepyloric region on stomach and normal duodenum without source for bleeding. Pt has progressive drop in BUN and stable with brown
stool . hbg improved to 8.7 on 03/06 on discharge after 3 units of PRBC's needed on admission. Pt was also seen by hematology during admission with macrocytosis with work up completed with + direct antithrombolysis assay and elevated Retic count
due to bleeding. Haptoglobin was normal. She was also noted with B12 and iron deficiency(placed on iron and B12 supplementation) along with orthostasis and concern for BPV. She now returns as called office 03/09 with black stools since 03/08 as not
feeling well and noted maroon emesis 03/10 prior to admission. On admission she had further drop in hbg to 7.6 down from 8.7 hbg on discharge and further rise in BUN up to 41 (noted normal at 15 03/06). Pt denies NSAID use other than occasional
daily ASA.
Pt otherwise admits to weight loss(10 lbs with some decreased appetite with recent rehab stay) and dizziness which is worse than baseline vertigo. She also admits to chronic constipation but had 2 large liquid black stools on Saturday. She
otherwise denies dysphagia, GERD or red stools. but hx colonoscopy many years ago recalls as normal. On admission noted BP 108/65, HR 108 with some runs of worsening tachycardia in ER.
Past Medical History
Past Medical History: HTN, Seizures and Other (PUD)
Past Surgical History: Gynecological (, hysterectomy)
Social History
Tobacco: Former Smoker
Alcohol: Daily (3 glasses of wine daily quit December with admissions and rehab)
Drug: None
Personal:
Living: Other (lives in daughter's in law suite with spouse )
Employment: Retired
Family History
Family History: Other (no family hx colon CA or polyps)
Allergies / Home Medications
Allergy/AdvReac Type Severity Reaction Status Date / Time
No Known Allergies Allergy Unverified 02/27/24 16:06
�Medication �Instructions �Recorded
aspirin 81 mg tablet,delayed 81 mg PO DAILY Blood Clot 02/27/24
release Prevention/Tx
desvenlafaxine succinate 100 mg 100 mg PO DAILY Mental 02/27/24
tablet,extended release 24 hr Health/Anxiety
levetiracetam 500 mg tablet 500 mg PO Q12H Seizures 02/27/24
cyanocobalamin (vitamin B-12) 1,000 mcg PO DAILY Supplement #30 03/06/24
1,000 mcg tablet tabs
midodrine 5 mg tablet 2.5 mg (1/2 x 5 mg) PO 03/06/24
TID@0800,1300,1800 Blood pressure
#90 tabs
atorvastatin 40 mg tablet (Lipitor) 40 mg PO QPM 03/10/24
ferrous gluconate 324 mg (38 mg 324 mg PO MOWEFR 03/10/24
iron) tablet
meclizine 12.5 mg tablet 12.5 mg PO TIDPRN PRN DIZZYNESS 03/10/24
Review of Systems
-
History Source: Patient and Family
Constitutional: Reports Weight Loss (10 lbs since [facility] admission) and Fatigue
EENT: Reports No Symptoms
Respiratory: Reports No Symptoms
Abdomen/GI: Reports Nausea, Vomiting (coffee ground emesis ), Diarrhea (loose black stool saturday), Constipated (chronic issues), Bloody Stools (last admits deep burgundy stool) and Black Stools
: Reports No Symptoms
Musculoskeletal: Reports No Symptoms
Skin: Reports No Symptoms
Neurological: Reports Dizzy (worse with baseline vertigo) and Weakness
Hematologic/Lymphatic: Reports Bleeding
Vital Signs
Temp Pulse Resp BP Pulse Ox
97.6 F 106 26 109/62 98
03/10/24 10:26 03/10/24 11:00 03/10/24 11:00 03/10/24 11:00 03/10/24 10:45
Physical Exam
Exam
General: Well Developed, Well Nourished, No Apparent Distress and Other (pale appearing)
HEENT: Normocephalic and Anicteric
Respiratory: Clear
Cardiac: Other (tachy with run of HR to 14-150 in ER while seen)
GI: Non Tender and Normal Bowel Sounds
Rectal: Black and Hem Positive
Musculoskeletal: No Clubbing and No Cyanosis
Skin: Warm
Neuro: Awake, Alert and AO x 3
Psych: Calm
Results
WBC 9.4 10^3/uL (4.8-10.8) 03/10/24 10:25
Hgb 7.6 g/dL (12.0-16.0) L 03/10/24 10:25
Hct 22.7 % (37.0-47.0) L 03/10/24 10:25
MCV 100.0 fL (81.0-99.0) H 03/10/24 10:25
Plt Count 205 10^3/uL (130-400) 03/10/24 10:25
Absolute Neuts (auto) 5.2 10^3/uL (1.4-6.5) 03/10/24 10:25
Sodium 135 mmol/L (135-145) 03/10/24 10:25
Potassium 4.2 mmol/L (3.5-5.1) 03/10/24 10:25
Chloride 106 mmol/L (98-107) 03/10/24 10:25
Carbon Dioxide 21 mmol/L (22-30) L 03/10/24 10:25
BUN 41 mg/dl (7-17) H 03/10/24 10:25
Creatinine 0.8 mg/dL (0.6-1.0) 03/10/24 10:25
Calcium 8.5 mg/dl (8.4-10.2) 03/10/24 10:25
Total Bilirubin 0.3 mg/dl (0.2-1.3) 03/10/24 10:25
AST 19 U/L (14-36) 03/10/24 10:25
ALT < 10 U/L (0-35) 03/10/24 10:25
Alkaline Phosphatase 47 U/L (38-126) 03/10/24 10:25
Prior GI Procedures:
EGD: 02/27 EGD- [facility] with normal esophagus, small HH, erythema in antrum, nodular mucosa in prepyloric region on stomach and normal duodenum without source for bleeding
EGD: ? in past with PUD
Colonoscopy: years ago recall as normal around age 82
Assessment / Plan
-
Pt is a 88yo presents with hx HTN but recent hypotension, PUD years ago , new seizures with admission in [facility] in January(per family drop in hbg 12 to 9 during admission or transfusions during that admission), daily ETOH use til January(3 glasses
wine daily for years), depression, TKR, hysterectomy and prior . She was admitted to 02/26- 03/06 with concern for upper GI bleed with coffee ground emesis and deep red stool with clots on admission. hbg was down to 5.5 after
admission and BUN 54. 412 EGD- [facility] with normal esophagus, small HH, erythema in antrum, nodular mucosa in prepyloric region on stomach and normal duodenum without source for bleeding. Pt has progressive drop in BUN and stable hbg with
brown stool . hbg improved to 8.7 on 03/06 on discharge after 3 units of PRBC's needed on admission. Pt was also seen by hematology during admission with macrocytosis with work up completed with + direct antithrombolysis assay and elevated Retic
count due to bleeding. Haptoglobin was normal. She was also noted with B12 and iron deficiency(placed on iron and B12 supplementation) along with orthostasis and concern for BPV. She now returns as called office 03/09 with black stools since 03/08
as not feeling well and noted maroon emesis 03/10 prior to admission. On admission she had further drop in hbg to 7.6 down from 8.7 hbg on discharge and further rise in BUN up to 41 (noted normal at 15 03/06). Pt denies NSAID use other than
occasional daily ASA. +recent 10 lbs wt loss, dizziness and hx chronic constipation.
-maroon emesis prior to admission with recent black stool
-symptomatic macrocytic anemia iron studies more chronic disease
-recurrent elevated BUN
-recent admission with concern for UGI bleed no source seen
-hypotension/tachycardia in ER
-recent admission to [facility] for new onset seizure
-hypoalbuminemia
-b12 deficiency- new
other medical problems:
-hx HTN
-TKR
-depression
-hysterectomy
-prior
-daily ETOH use 3 drinks daily til December
PLAN:
Pt with recurrent admission with concern for UGI/small bowel bleeding vs less likely but colonic source in differential. Pt now with drop in hgb, vomiting maroon emesis, black stools recurrent rise in BUN-- PUD, ectasia, mass vs other
pt appears to have larger volume bleeding then stop with recurrent process
educated family and patient on disease process
will review with Dr. Rivera for EGD with push enteroscopy as recent EGD neg
if neg consider colonoscopy then capsule
monitor HR was some tachycardia noted in ER
trend hbg transfuse as needed
cont PPI gtt
NSAID avoidance but minimal use only ASA prior to admission
NPO
continued ETOH abstinence
recent heme eval as noted
updated daughters at bedside
-
-
Thank you for consultation and allowing me to participate in the patient's care. Please call the cartoon artist GI physician during the after hours with any questions or concerns.
--- NOTE | 2024-03-10 13:27 | HPS.HSE ---
Family Physician
-
Family Physician: Latoya Erickson
Chief Complaint
-
bleeding
History of Present Illness
88-year-old female with past medical history of peptic ulcer disease, seizure, anxiety, hypertension came to the hospital with hematemesis and dark stool. History was taken from the daughter at bedside. Per daughter patient started having
continued bleeding started past Saturday. Today patient noted her stools were dark/black. Denies any abdominal pain. Denies any nausea at this time. Denies any chest pain, shortness of breath. Denies any fever/chills. Denies any recent NSAID use
other than baby aspirin.
Medical History
Past Medical History
Past Medical History: Reports HTN, Seizures and Other (Peptic ulcer disease,anxiety)
Past Surgical History: Reports Other
Additional Past Surgical History:
Right knee replacement
Hysterectomy
Social History
Tobacco: Former Smoker
Alcohol: Former
Family History
Family History: Not pertinent
Allergies / Home Medications
Allergies reflects when Allergies were last updated in [facility].
Home Medications with original date entered in [facility]
Allergy/Medication List:
Allergies
Allergy/AdvReac Type Severity Reaction Status Date / Time
No Known Allergies Allergy Unverified 02/27/24 16:06
Home Medications
aspirin 81 mg tablet,delayed release 81 mg PO DAILY Blood Clot Prevention/Tx 02/27/24
desvenlafaxine succinate 100 mg tablet,extended release 24 hr 100 mg PO DAILY Mental Health/Anxiety 02/27/24
levetiracetam 500 mg tablet 500 mg PO Q12H Seizures 02/27/24
cyanocobalamin (vitamin B-12) 1,000 mcg tablet 1,000 mcg PO DAILY Supplement #30 tabs 03/06/24
midodrine 5 mg tablet 2.5 mg (1/2 x 5 mg) PO TID@0800,1300,1800 Blood pressure #90 tabs 03/06/24
atorvastatin 40 mg tablet (Lipitor) 40 mg PO QPM 03/10/24
ferrous gluconate 324 mg (38 mg iron) tablet 324 mg PO MOWEFR 03/10/24
meclizine 12.5 mg tablet 12.5 mg PO TIDPRN PRN DIZZYNESS 03/10/24
Review of Systems
-
Abdomen/GI: Reports Black Stools
Physical Exam
Vital Signs
Vital Signs
Temp Pulse Resp BP Pulse Ox
97.6 F 102 26 111/62 99
03/10/24 10:26 03/10/24 13:00 03/10/24 13:00 03/10/24 13:00 03/10/24 12:45
Physical Exam
General: No Apparent Distress and Comfortable
HEENT: Anicteric and Moist mucous membranes
Respiratory: Clear and Non Labored Respirations; No Wheezes
Cardiac: S1/S2, Regular Rhythm and Tachycardia
Breast: Deferred by me
GI: Soft, Non Tender and Non Distended
Genito-urinary: Deferred by me
Musculoskeletal: No Edema
Neuro: Awake, Alert and Oriented
Psych: Calm
Laboratory Results
-
03/10/24 10:25
Laboratory Results
Total Bilirubin 0.3 mg/dl (0.2-1.3) 03/10/24 10:25
AST 19 U/L (14-36) 03/10/24 10:25
ALT < 10 U/L (0-35) 03/10/24 10:25
Alkaline Phosphatase 47 U/L (38-126) 03/10/24 10:25
Data Reviewed
-
Lab Data: Labs Reviewed by me, Discussed with Patient and Discussed with Family
Impression/Plan
-
Suspect acute GI bleed
Symptoms of hematemesis and dark tarry stool
Consult GI
Continue with PPI
N.p.o.
PRBC ordered by ED, last time patient had antibodies and needed hematology approval; also had + SAYRA; heme consulted
EGD last admission was without any bleeding, showed gastritis. Patient instructed to get colonoscopy outpatient which she hasnt as she was just discharged
trend H/H
IVF
Hold aspirin for now
Admit to IMU as high risk of decompensation
Low vitamin B12
Replete
History of seizure
Keppra IV for now
History of dizziness
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
TEDS
Continue with midodrine
History of depression
DVT prophylaxis
SCDs
CODE STATUS
Full code
Discussed with Daughters at bedside
I spent a total of 77 minutes with the patient or on the floor. More than 50% of this time involved counseling and coordination of care.
[2024-03-10 14:58] LABS: Iron 99 ug/dl (37-170)
[2024-03-10 15:07] LABS: Percent Saturation 50 % (20-50); Total Iron Binding Capacity 197 ug/dl (265-497)
[2024-03-10] MEDS: NSS 1000 IV (15:18)
--- NOTE | 2024-03-10 15:26 | W.PN.UPDATE ---
Update Note
Progress Note Update
billing note
[2024-03-10 16:45] LABS: Folate 10.7 ng/ml (2.76-20); Vitamin B12 283 pg/ml (239-931)
--- NOTE | 2024-03-10 18:35 | PTCARENOTE ---
Pt received From ED. Pt connected to IMU monitor. Pt AAO. Pt on 1L NC, satting 99%. Pt HR 100-105. Pt receiving 1st unit of PRBC running to gravity, Pt tolerating infusion. Pt without n/v/d currently. Call guillen in reach.
[2024-03-10] MEDS: LIPITOR 40 MG PO (20:38)
[2024-03-10] MEDS: NULYTELY SOLUTION 4 LITERS PO (20:38)
[2024-03-10] MEDS: KEPPRA 500 MG IV (20:39)
[2024-03-10 22:39] LABS: Hematocrit 23.5 % (37.0-47.0); Hemoglobin 8.3 g/dL (12.0-16.0)
[2024-03-11] VITALS (17 sets, daily range): BP systolic 119–169; BP diastolic 57–97; BMI 23.0
--- NOTE | 2024-03-11 01:00 | PTCARENOTE ---
Addendum entered by Ashley Quinonez RN 03/11/24 01:05:
Pt having mild dizziness when turning to be changed. Pt tolerating GI prep at this point, having liquid black stool with hints of maroon coloring.
Original Note:
Assumed care of pt from day RN. Pt finishing up first unit of blood and tolerating well. Contacted blood bank and DRUG SAFETY COORDINATOR about ready unit of PRBC. Pt H&H after first unit PRBC 8.3, no further orders at this time. Pt bp in 160's/90's, [employer] made aware.
[2024-03-11] MEDS: NSS 1000 IV ×2 (03:25→15:59)
[2024-03-11] MEDS: PROTONIX 100 IV (06:01)
[2024-03-11 06:33] LABS: % Basophils 0.5 % (0-2); % Eosinophils 3.7 % (0-6); % Immature Granulocytes 0.2 % (0-0.5); % Lymphocytes 42.8 % (20.5-51.1); % Monocytes 5.9 % (1.7-9.3); % Neutrophils 46.9 % (42.2-75.2); Absolute Eosinophils 0.3 10^3/uL (0-0.7); Absolute Lymphocytes 3.6 10^3/uL (1.2-3.4); Absolute Monocytes 0.5 10^3/uL (0.1-0.6); Absolute Neutrophils 3.9 10^3/uL (1.4-6.5); Hematocrit 23.7 % (37.0-47.0); Hemoglobin 8.3 g/dL (12.0-16.0); Mean Corpuscular Hgb 33.6 pg (27.0-31.0); Mean Platelet Volume 9.6 fL (7.4-10.4); Nucleated Red Blood Cells % 0 %; Platelet Count 182 10^3/uL (130-400); Red Blood Cell Count 2.47 10^6/uL (4.20-5.40); Red Cell Dist. Width 14.9 % (11.5-14.5); White Blood Cell Count 8.4 10^3/uL (4.8-10.8)
--- NOTE | 2024-03-11 06:40 | PTCARENOTE ---
Pt not able to finish GI prep. GI made aware, new orders to be placed. Day RN made aware.
[2024-03-11] MEDS: MIRALAX 51 GRAMS PO (08:04)
[2024-03-11] MEDS: PRISTIQ 100 MG PO (08:06)
[2024-03-11] MEDS: VITAMIN B-12 1000 MCG PO (08:07)
[2024-03-11] MEDS: KEPPRA 500 MG IV (08:07)
--- NOTE | 2024-03-11 09:42 | CON.ONC ---
Impression
Impression
88 yo F with hematemesis and melena, possible GI bleed.
Plan -
Acute blood loss anemia -
Received 1 unit of PRBC yesterday. Hb improved from 7. 6 on 03/10 to 8.3 on 03/11.
Transfuse PRBC as needed.
SAYRA +ve during the last visit, but no evidence of hemolysis, haptoglobin levels within normal limits.
PT and INR are within normal limits during her last hospital admission. PTT pending tomorrow.
On IV iron and oral B 12 supplementation during her last visit.
Serum Iron levels - 99, ferritin - 473, and TIBC - 197.
Iron supplementation can be given on outpatient basis.
Plan
Plan
PTT tomorrow morning.
PRBC as needed.
Monitor CBC routine.
Patient History
History of Present Illness
Lionel 88 yo F, known to hematology service in her last visit, is readmitted to hospital for extreme dizziness, hematemesis and melena. Patient denies abdominal pain, nausea, fever, chills, easy bruising on her skin, chest pain, SOB and NSAID
use. Reports to have been using baby aspirin.
Past-Medical/Surgical History
PMHx - peptic ulcer disease, seizure, anxiety, hypertension
Patient Medication
�Medication �Instructions �Recorded �Confirmed �Last Taken �Type
aspirin 81 mg tablet,delayed 81 mg PO DAILY Blood Clot 02/27/24 03/10/24 03/09/24 History
release Prevention/Tx
desvenlafaxine succinate 100 mg 100 mg PO DAILY Mental 02/27/24 03/10/24 03/09/24 History
tablet,extended release 24 hr Health/Anxiety
levetiracetam 500 mg tablet 500 mg PO Q12H Seizures 02/27/24 03/10/24 03/09/24 History
cyanocobalamin (vitamin B-12) 1,000 mcg PO DAILY Supplement #30 03/06/24 03/10/2403/09/24 Rx
1,000 mcg tablet tabs
midodrine 5 mg tablet 2.5 mg (1/2 x 5 mg) PO 03/06/24 03/10/24 03/09/24 Rx
TID@0800,1300,1800 Blood pressure
#90 tabs
atorvastatin 40 mg tablet (Lipitor) 40 mg PO QPM High Cholesterol 03/10/24 03/10/24 03/09/24 History
ferrous gluconate 324 mg (38 mg 324 mg PO MOWEFR Supplement 03/10/24 03/10/24 03/09/24 History
iron) tablet
meclizine 12.5 mg tablet 12.5 mg PO TIDPRN PRN DIZZYNESS 03/10/24 03/10/24 Unknown History
Active Medications
Generic Name Dose Route Start Last Admin
Trade Name Freq PRN Reason Stop Dose Admin
Atorvastatin Calcium 40 mg 03/10/24 18:22 03/10/24 20:38
Atorvastatin (Lipitor) 40 Mg Tablet PO 04/07/24 18:21 40 mg
QPM MICHAEL Administration
Cyanocobalamin 1,000 mcg 03/11/24 08:00 03/11/24 08:07
Cyanocobalamin 1,000 Mcg Tablet PO 04/08/24 07:59 1,000 mcg
DAILY MICHAEL Administration
Desvenlafaxine Succinate 100 mg 03/11/24 08:00 03/11/24 08:06
Desvenlafaxine Succinate (Pristiq) 100 Mg Tab.Er.24h PO 04/08/24 07:59 100 mg
DAILY MICHAEL Administration
Pantoprazole Sodium 80 mg in 100 mls @ 10 mls/hr 03/10/24 10:45 03/11/24 06:01
Protonix IV 100 mls
Q10H MICHAEL Administration
8 MG/HR
Sodium Chloride 1,000 mls @ 80 mls/hr 03/10/24 13:45 03/11/24 03:25
Nss IV 1,000 mls
[id number] MICHAEL Administration
Levetiracetam 500 mg 03/10/24 20:00 03/11/24 08:07
Levetiracetam (100 Mg/Ml) 500 Mg/5 Ml Vial IV 04/07/24 19:59 500 mg
Q12 MICHAEL Administration
Midodrine 2.5 mg 03/10/24 18:22 03/11/24 08:07
Midodrine 5 Mg Tablet PO 04/07/24 18:21 Not Given
TID@0800,1300,1800 MICHAEL
Ondansetron HCl 4 mg 03/10/24 13:30
Ondansetron 4 Mg/2 Ml Vial IV 04/07/24 13:29
Q6HPRN PRN
NAUSEA/VOMITING
Sodium Chloride 0 flush 03/10/24 19:00
Sodium Chloride 0.9% (Flush) Syringe IV 04/07/24 18:59
PER PROTOCOL MICHAEL
Review of Systems
-
History Source: Patient
Constitutional: Reports No Symptoms
EENT: Reports No Symptoms
Respiratory: Reports No Symptoms
Cardiac: Reports No Symptoms
GI: Reports Black Stools and Hemetemesis
: Reports No Symptoms
Musculoskeletal: Reports No Symptoms
Skin: Reports No Symptoms
Neuro: Reports Dizzy and Weakness
Endocrine: Reports No Symptoms
Hematologic/Lymphatic: Reports Bleeding
Allergy / Immunology: Reports No Symptoms
Physical Exam
-
General: Well Developed and Well Nourished
Cardiology: S1, S2 and Murmur
Pulmonary: Clear and Other (No wheezes, rales and ronchi)
GI: Soft, Normal Bowel Sounds and No Organomegaly
Musculoskeletal: No Edema
Neurology: Non Focal
Labs
Lab Results
WBC 8.4 10^3/uL (4.8-10.8) 03/11/24 06:09
RBC 2.47 10^6/uL (4.20-5.40) L 03/11/24 06:09
Hgb Cancelled 03/11/24 08:30
Hct Cancelled 03/11/24 08:30
MCV 96.0 fL (81.0-99.0) 03/11/24 06:09
MCH 33.6 pg (27.0-31.0) H 03/11/24 06:09
MCHC 35.0 g/dL (33.0-37.0) 03/11/24 06:09
RDW 14.9 % (11.5-14.5) H 03/11/24 06:09
Plt Count 182 10^3/uL (130-400) 03/11/24 06:09
MPV 9.6 fL (7.4-10.4) 03/11/24 06:09
Abs Immat Gran (auto) 0.0 10^3/uL (0-0.05) 03/11/24 06:09
Absolute Neuts (auto) 3.9 10^3/uL (1.4-6.5) 03/11/24 06:09
Absolute Lymphs (auto) 3.6 10^3/uL (1.2-3.4) H 03/11/24 06:09
Absolute Monos (auto) 0.5 10^3/uL (0.1-0.6) 03/11/24 06:09
Absolute Eos (auto) 0.3 10^3/uL (0-0.7) 03/11/24 06:09
Absolute Basos (auto) 0.0 10^3/uL (0-0.2) 03/11/24 06:09
Immature Gran % 0.2 % (0-0.5) 03/11/24 06:09
Neutrophils % 46.9 % (42.2-75.2) 03/11/24 06:09
Lymphocytes % 42.8 % (20.5-51.1) 03/11/24 06:09
Monocytes % 5.9 % (1.7-9.3) 03/11/24 06:09
Eosinophils % 3.7 % (0-6) 03/11/24 06:09
Basophils % 0.5 % (0-2) 03/11/24 06:09
Creatinine Cancelled 03/11/24 06:09
Vital Signs
Vital Signs
Temp Pulse Resp BP Pulse Ox
97.6 F 96 25 151/86 97
03/11/24 07:04 03/11/24 08:00 03/11/24 08:00 03/11/24 08:07 03/11/24 08:00
[2024-03-11 10:29] LABS: Blood Urea Nitrogen 28 mg/dl (7-17); Calcium 8.2 mg/dl (8.4-10.2); Carbon Dioxide 19 mmol/L (22-30); Chloride 110 mmol/L (98-107); Estimated Creatinine Clearance 54 ml/min; Glucose 87 mg/dl (70-99); Potassium 3.9 mmol/L (3.5-5.1); Sodium 134 mmol/L (135-145); eGFR > 60.00
--- NOTE | 2024-03-11 10:31 | CM ---
CM following re: discharge planning.
Reviewed pt's chart, met with pt and pt's daughter Brinda at bedside. CM left a message to daughter Nandini.
Pt is an 88 year old female, admitted with primary dx of GI Bleed.
Pt is well known to this CM from previous admission early February 2024. Pt reports she lives with in in-law suite at daughter's house, has 4 supportive children. Pt reports she ambulates without assistive devices inside the house, uses a
Rollator when goes outside. 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 Pt expressed her desire to return back home at discharge.
per daughter Brinda, pt was discharged home a few days ago with [facility] and per daughter palliative care was requested. per daughter, she wants pt has [place] palliative care and she would like switch [facility]N services from [facility] to [facility]. A
referral to [facility] made. CM will make a referral top Palliative care.
PCP: Latoya Erickson
Pharmacy: [facility]
D/C plan: home with [facility] and palliative care. Family to transport at discharge.
CM will follow with discharge planning progress as hospitalization progresses
--- NOTE | 2024-03-11 11:55 | PTCARENOTE ---
Assumed care of patient at beginning of this shift from previous RN. Patient was able to drink 2/3 of golytely prep per report; order entered by Leida Stuart, COAL CRUSHER OPERATOR with gi, for miralax which was given. Patient had large lopez watery bm mixed with
brown/black small sharyn and pasty bm. [place] text sent to Leida Stuart; order entered for tap water enema, which was given. Patient continues to drink golytely prep. Daughter at bedside.
--- NOTE | 2024-03-11 13:27 | W.PN.HOSP.TC ---
Today's Communication/Plan
-
monitor vital signs
see plan
Plan for colonoscopy and push enteroscopy today
Monitor hemoglobin
Assessment / Plan
Assessment / Plan
General: No Apparent Distress and Comfortable
HEENT: Anicteric and Moist mucous membranes
Respiratory: Clear and Non Labored Respirations; No Wheezes
Cardiac: S1/S2, Regular Rhythm and Tachycardia
Breast: Deferred by me
GI: Soft, Non Tender and Non Distended
Genito-urinary: Deferred by me
Musculoskeletal: No Edema
Neuro: Awake, Alert and Oriented
Psych: Calm
Suspect acute GI bleed
Symptoms of hematemesis and dark tarry stool
GI following, plan for colonoscopy and push enteroscopy 03/11
Continue with PPI
N.p.o.
PRBC ordered by ED, last time patient had antibodies and needed hematology approval; also had + SAYRA; heme following; no hemolysis; will monitor
s/p 1 unit prbc 03/10
EGD last admission was without any bleeding, showed gastritis. Patient instructed to get colonoscopy outpatient which she hasnt as she was just discharged
trend H/H
IVF
Hold aspirin for now
Mild hyponatremia
Monitor
Mild metabolic acidosis
Monitor
Low vitamin B12
Replete
History of seizure
Keppra IV for now
History of dizziness
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
TEDS
Continue with midodrine
History of depression
DVT prophylaxis
SCDs
CODE STATUS
Full code
Discussed with Daughter at bedside
I spent a total of 52 minutes with the patient or on the floor. More than 50% of this time involved counseling and coordination of care.
Anticipated Discharge: 24 - 48 hours
Subjective/Interval History
-
Date of Service: March 11, 2024
Denies pain
Objective Data
-
Labs:
Laboratory Results
03/11/24 03/11/24
06:09 07:56
WBC 8.4
Hgb 8.3 L
Hct 23.7 L
Plt Count 182
Sodium Cancelled 134 L
Potassium Cancelled 3.9
Chloride Cancelled 110 H
Carbon Dioxide Cancelled 19 L
BUN Cancelled 28 H
Creatinine Cancelled 0.7
Glucose Cancelled 87
Calcium Cancelled 8.2 L
Vital Signs:
Vital Signs
Temp Pulse Resp BP Pulse Ox
97.6 F 95 26 169/83 98
03/11/24 11:10 03/11/24 12:00 03/11/24 12:00 03/11/24 12:30 03/11/24 12:00
I&O
03/10/24 03/11/24 03/12/24
06:59 06:59 06:59
Intake Total 3250 / 3250
Balance 3250 / 3250
--- NOTE | 2024-03-11 13:28 | PTCARENOTE ---
Patient in GI lab for procedure.
--- NOTE | 2024-03-11 16:17 | PTCARENOTE ---
Patient returned from PACU post EGD and colonoscopy. Dr Rivera d/c'd protonix infusion, changing it to po and changed diet to regular. Patient and family updated.
--- NOTE | 2024-03-11 16:54 | PTCARENOTE ---
Patient drowsy on arrival from GI lab, sleeping mostly. Daughter arrived with patient's who is in a wheelchair. Daughter asking to speak with physician stating that her mom will not remember what was said. [place] text sent to Dr Rivera who said
he will call. Phone number provided for Nandini as requested by family. Patient awake in room with family at bedside.
--- NOTE | 2024-03-11 17:09 | W.PN.UPDATE ---
Update Note
Progress Note Update
updated daughter Nandini re: push enteroscopy and colonoscopy findings. recommended capsule endoscopy as next step in evaluation, which is done as elective procedure (due to insurance not covering inpatient capsule study). she was not agreeable
with this plan as she was concerned that pt will return to the hospital with recurrent bleeding. i provided reassurance that pt is not bleeding at this time, Hgb is stable and no evidence of active bleeding was noted during endoscopic procedure.
even if balloon enteroscopy is to be pursued, the performing physicians will require capsule endoscopy in most cases. these were explained to the pt's daughter but she again was not agreeable. again i offered office f/u in 2-3 weeks for capsule
endoscopy arrangement.
[2024-03-11] MEDS: LIPITOR 40 MG PO (17:20)
--- NOTE | 2024-03-11 20:05 | PTCARENOTE ---
Addendum entered by Ashley Quinonez RN 03/12/24 03:35:
Pt appeared to have had a restful night. Pt stating she 'slept well'.
Original Note:
Pt and Pt daughter voiced a concern about transfer to different floor to this RN. Night DIE STAMPING PRESS OPERATOR made aware (see report).
[2024-03-11] MEDS: KEPPRA 500 MG PO (20:32)
--- NOTE | 2024-03-11 21:02 | W.PN.UPDATE ---
Update Note
Progress Note Update
Patient has an order to transfer to tele, daughter voiced a concern to the nursing staff to speak to the attending before transfer patient out of IMU. Will keep the patient overnight in IMU and update the attending in am.
[2024-03-11 23:54] LABS: Hematocrit 22.4 % (37.0-47.0); Hemoglobin 7.8 g/dL (12.0-16.0)
[2024-03-12] VITALS (18 sets, daily range): BP systolic 108–157; BP diastolic 62–97; PULSE 99–122; O2SAT 97; BMI 22.7
[2024-03-12 04:33] LABS: % Basophils 0.7 % (0-2); % Immature Granulocytes 0.3 % (0-0.5); % Lymphocytes 44.7 % (20.5-51.1); % Monocytes 4.4 % (1.7-9.3); % Neutrophils 44.9 % (42.2-75.2); Absolute Eosinophils 0.3 10^3/uL (0-0.7); Absolute Lymphocytes 2.8 10^3/uL (1.2-3.4); Absolute Monocytes 0.3 10^3/uL (0.1-0.6); Absolute Neutrophils 2.8 10^3/uL (1.4-6.5); Hematocrit 23.5 % (37.0-47.0); Mean Corpuscular Hgb 32.1 pg (27.0-31.0); Mean Corpuscular Volume 94.4 fL (81.0-99.0); Nucleated Red Blood Cells % 0 %; Platelet Count 192 10^3/uL (130-400); Red Blood Cell Count 2.49 10^6/uL (4.20-5.40); Red Cell Dist. Width 14.7 % (11.5-14.5); White Blood Cell Count 6.2 10^3/uL (4.8-10.8)
[2024-03-12 04:56] LABS: Blood Urea Nitrogen 14 mg/dl (7-17); Calcium 8.4 mg/dl (8.4-10.2); Carbon Dioxide 22 mmol/L (22-30); Chloride 111 mmol/L (98-107); Estimated Creatinine Clearance 54 ml/min; Glucose 84 mg/dl (70-99); Potassium 3.5 mmol/L (3.5-5.1); Sodium 137 mmol/L (135-145); eGFR > 60.00
[2024-03-12 05:28] LABS: APTT 28.9 Sec (23.4-35.0)
[2024-03-12] MEDS: KEPPRA 500 MG PO ×2 (09:08→20:08)
[2024-03-12] MEDS: PROTONIX 40 MG PO (09:08)
[2024-03-12] MEDS: PRISTIQ 100 MG PO (09:08)
[2024-03-12] MEDS: VITAMIN B-12 1000 MCG PO (09:08)
[2024-03-12] MEDS: ANTIVERT 12.5 MG PO (11:25)
--- NOTE | 2024-03-12 11:52 | CM ---
Patient with Dx Suspected acute GI bleed. Room air. PT recommends skilled rehab. OT Eval pending.
Spoke with patient's daughter Nandini; discussed patient's current mobility - daughter says the patient is adamant that she will not go to SNF for rehab and she already had discussion with patient who was crying about the idea of going to SNF.
Although patient and live in an in-law suite, the daughter who lives in the attached house is home all day and feels she will be able to assist the patient at home without any additional caregivers. She is aware that [facility] referral was made.
Daughter is also requesting Palliative Care.
Referral for Palliative Care not found in [facility]- referral placed.
Plan home with [facility] and Palliative Care, with family.
--- NOTE | 2024-03-12 12:00 | PTCARENOTE ---
Assumed care of patient at beginning of this shift from previous RN. Patient c/o dizziness when sitting on the side of the bed while attempting to work with PT/OT. Dr Daniel made aware. Meclizine ordered and given; TEDS stockings ordered and placed
on patient. BP has been running 130s/70s-80s, occasionally 90s and ordered midodrine which has been held each time. Dr Daniel aware. Patient then assisted to bathroom with skilled nursing professional and did c/o dizziness. See worklist for full assessment and
vital signs; see MAR for med administration.
--- NOTE | 2024-03-12 12:24 | W.PN.HOSP.TC ---
Today's Communication/Plan
-
Monitor vital signs and see plan
Meclizine
Teds
Monitor hemoglobin
PT/OT
Transfer to tele
Assessment / Plan
Assessment / Plan
General: No Apparent Distress and Comfortable
HEENT: Anicteric and Moist mucous membranes
Respiratory: Clear and Non Labored Respirations; No Wheezes
Cardiac: S1/S2, Regular Rhythm and Tachycardia
Breast: Deferred by me
GI: Soft, Non Tender and Non Distended
Genito-urinary: Deferred by me
Musculoskeletal: No Edema
Neuro: Awake, Alert and Oriented
Psych: Calm
Suspect acute GI bleed
Symptoms of hematemesis and dark tarry stool
GI following, colonoscopy and push enteroscopy 03/11 did not show any signs of obvious bleeding. Colonoscopy did had few polyps and hemorrhoids. Per GI the next step is outpatient capsule endoscopy. Patient family at this time is very concerned
about her frequent bleeding and low hemoglobin.
I will check hemoglobin later today and we will transfuse if less than 8
in the meantime patient can get frequent H.H outpatient with pcp. If hgb persistently low then patient should follow-up with hematology outpatient
Continue with PPI
PRBC ordered by ED, last time patient had antibodies and needed hematology approval; also had + SAYRA; heme following; no hemolysis; will monitor
s/p 1 unit prbc 03/10
EGD last admission was without any bleeding, showed gastritis. Patient instructed to get colonoscopy outpatient which she hasnt as she was just discharged
trend H/H
Hold aspirin for now
Mild hyponatremia
Monitor
Mild metabolic acidosis
Monitor
Low vitamin B12
Replete
History of seizure
Keppra
History of dizziness
Suspect be BPPH at one point but per PT this hospitalization, no signs of vertigo; seen by neurology last admission
per daughter patient has periods of dizziness before
TEDS
Continue with midodrine
History of depression
DVT prophylaxis
SCDs
CODE STATUS
Full code
PT/OT rec SNF however patient and family wants home
Discussed with Daughter over the phone
I spent a total of 53 minutes with the patient or on the floor. More than 50% of this time involved counseling and coordination of care.
Anticipated Discharge: Within 24 hours
Subjective/Interval History
-
Date of Service: March 12, 2024
denies abdominal pain
Objective Data
-
Labs:
Laboratory Results
03/12/24 03/12/24 03/12/24
04:22 05:07 13:00
WBC 6.2
Hgb 8.0 L Pending
Hct 23.5 L Pending
Plt Count 192
APTT Cancelled 28.9
Sodium 137
Potassium 3.5
Chloride 111 H
Carbon Dioxide 22
BUN 14
Creatinine 0.7
Glucose 84
Calcium 8.4
Vital Signs:
Vital Signs
Temp Pulse Resp BP Pulse Ox
97.9 F 108 22 122/74 96
03/12/24 11:20 03/12/24 12:05 03/12/24 12:05 03/12/24 12:05 03/12/24 12:05
I&O
03/11/24 03/12/24 03/13/24
06:59 06:59 06:59
Intake Total 3250 / 3250 3020 / 3020
Balance 3250 / 3250 3020 / 3020
[2024-03-12 13:02] LABS: Hematocrit 24.4 % (37.0-47.0); Hemoglobin 8.2 g/dL (12.0-16.0)
--- NOTE | 2024-03-12 14:47 | PTCARENOTE ---
Patient's daughter, Brinda, at the bedside. Requested this nurse ask Dr Daniel come to room to speak with her. She stated Dr Daniel spoke with her sister, Nandini, earlier and they (daughters) would like patient transferred to another facility. "Kenny"Fredy made aware and instructed that Hg has increased and he spoke with GI: no need for transfer at this time. He requested GI to give sooner appointment for capsule study if possible. Patient and daughter, Brinda, updated. Patient and daughter
also updated that patient has been downgraded to telemetry and may be transferred to another room today.
[2024-03-12] MEDS: LIPITOR 40 MG PO (17:12)
--- NOTE | 2024-03-12 17:40 | PTCARENOTE ---
Patient transferred to [address] [place] [address]; report given to Madelyn. Family aware.
[2024-03-13] VITALS (11 sets, daily range): BP systolic 130–159; BP diastolic 74–92; BMI 22.2
[2024-03-13 06:04] LABS: % Basophils 0.5 % (0-2); % Eosinophils 3.6 % (0-6); % Immature Granulocytes 0.2 % (0-0.5); % Lymphocytes 47.1 % (20.5-51.1); % Monocytes 6.1 % (1.7-9.3); % Neutrophils 42.5 % (42.2-75.2); Absolute Eosinophils 0.2 10^3/uL (0-0.7); Absolute Lymphocytes 2.9 10^3/uL (1.2-3.4); Absolute Monocytes 0.4 10^3/uL (0.1-0.6); Absolute Neutrophils 2.6 10^3/uL (1.4-6.5); Mean Corp Hgb Conc. 34.5 g/dL (33.0-37.0); Mean Corpuscular Hgb 32.4 pg (27.0-31.0); Mean Platelet Volume 9.1 fL (7.4-10.4); Nucleated Red Blood Cells % 0 %; Platelet Count 205 10^3/uL (130-400); Red Blood Cell Count 2.16 10^6/uL (4.20-5.40); Red Cell Dist. Width 14.7 % (11.5-14.5); White Blood Cell Count 6.1 10^3/uL (4.8-10.8)
[2024-03-13 06:21] LABS: Hematocrit 20.3 % (37.0-47.0)
[2024-03-13 06:42] LABS: Blood Urea Nitrogen 18 mg/dl (7-17); Calcium 8.3 mg/dl (8.4-10.2); Carbon Dioxide 22 mmol/L (22-30); Chloride 110 mmol/L (98-107); Estimated Creatinine Clearance 47 ml/min; Glucose 87 mg/dl (70-99); Potassium 3.7 mmol/L (3.5-5.1); Sodium 135 mmol/L (135-145); eGFR > 60.00
[2024-03-13] MEDS: PROTONIX 40 MG PO (07:30)
[2024-03-13] MEDS: PRISTIQ 100 MG PO (07:30)
[2024-03-13] MEDS: VITAMIN B-12 1000 MCG PO (07:30)
[2024-03-13] MEDS: KEPPRA 500 MG PO ×2 (07:30→19:21)
[2024-03-13 08:47] LABS: Hemoglobin 7.1 g/dL (12.0-16.0)
[2024-03-13 08:50] LABS: Hematocrit 20.6 % (37.0-47.0)
--- NOTE | 2024-03-13 09:41 | W.PN.ONC ---
Today's Communication / Plan
-
03/10 Iron 99, TIBC 197, %sat 50, ferritin 473
03/13 Hgb 7.1, Hct 20.6
s/p 1unit PRBCs, 1unit ordered and actively transfusing this AM
Monitor CBC daily, transfuse to maintain Hgb >7
B12/folate repletion
Supportive care
Capsule study recommended per GI which is scheduled for 03/[address] Rivera
VN upon discharge. [facility] Work, En Ramon, was notified of patient's potential needs for home lab draws. Follow up with [facility] in the [place] office to be arranged. Office was notified. Recommend weekly CBC (or more frequent if
needed) and outpatient transfusions/IV iron as needed. Family updated.
Impression
Impression
Anemia secondary to blood loss and previous iron deficiency
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
Tachycardia
B12 deficiency
Subjective/Objective
Subjective/Objective
Patient is resting in bed receiving 1unit of blood. She denies pain. She endorses dizziness at times. Daughter at bedside.
Vital Signs:
Vital Signs
Temp Pulse Resp BP Pulse Ox
98.0 F 107 16 138/74 96
03/13/24 09:38 03/13/24 09:38 03/13/24 09:38 03/13/24 09:38 03/13/24 07:30
physical exam:
aaox3, pleasant, pallor
HRR, tachycardia, lungs clear on RA
+bowel sounds
Lab Results:
Laboratory Data
WBC 6.1 10^3/uL (4.8-10.8) 03/13/24 05:36
Hgb 7.1 g/dL (12.0-16.0) L 03/13/24 08:38
Plt Count 205 10^3/uL (130-400) 03/13/24 05:36
APTT 28.9 Sec (23.4-35.0) 03/12/24 05:07
eGFR > 60.00 03/13/24 05:36
--- NOTE | 2024-03-13 09:56 | W.PN.GI.CBS2 ---
Addendum entered and electronically signed by Dulce Maria Elizabeth DO 03/13/24 10:35:
Cristal Chanel is seen today, previously followed by GI during current admission for coffee-ground emesis and melena, status post small bowel enteroscopy and colonoscopy without source of bleeding identified. This was her second admission in the
last 2 weeks for GI bleeding. She had no further episodes of GI bleeding since admission and plan for outpatient capsule endoscopy scheduled for this upcoming Saturday. GI was called back due to a 1g drop in hemoglobin overnight, 8.2-7.0, repeat
hemoglobin 7.1. There was some confusion in the documentation of the color of her stool however GI performed bedside rectal this morning, no stool in rectal vault, scant amount of stool appreciated which was light brown/yellow in color. This is
somewhat of a peculiar presentation as coming in with coffee-ground emesis and melena is consistent with overt GI bleeding from a suspected upper GI source, however bidirectional endoscopy with both an enteroscopy and colonoscopy did not identify a
source. Now with further drop in hemoglobin without signs of active GI bleeding is consistent with an occult GI bleeding source, concern for small bowel. It would be very unlikely that she is presenting with coffee-ground emesis with a distal
small bowel lesion as the source of her bleeding. That said she does have an expedited appointment for capsule endoscopy scheduled for this Saturday, which will be the most useful test in evaluating the distal portion of the small bowel to determine
the best next step in management.
Agree with transfusion and monitor over the next 24 hours. Keep on clear liquid diet. If she has no signs of active GI bleeding and no drop in hemoglobin (following adequate response to transfusion), okay for discharge from a GI perspective with
planned VCE on Saturday.
Original Note:
Today's Communication / Plan
-
Transfuse as ordered
Clear liquids no reds
Trend labs
Assessment / Plan
-
Pt is a 88yo presents with hx HTN but recent hypotension, PUD years ago , new seizures with admission in [place] in January(per family drop in hbg 12 to 9 during admission or transfusions during that admission), daily ETOH use til January(3 glasses
wine daily for years), depression, TKR, hysterectomy and prior . She was admitted to 02/26- 03/06 with concern for upper GI bleed with coffee ground emesis and deep red stool with clots on admission. hbg was down to 5.5 after
admission and BUN 54. 412 EGD- Gema Do with normal esophagus, small HH, erythema in antrum, nodular mucosa in prepyloric region on stomach and normal duodenum without source for bleeding. Pt has progressive drop in BUN and stable hbg with
brown stool . hbg improved to 8.7 on 03/06 on discharge after 3 units of PRBC's needed on admission. Pt was also seen by hematology during admission with macrocytosis with work up completed with + direct antithrombolysis assay and elevated Retic
count due to bleeding. Haptoglobin was normal. She was also noted with B12 and iron deficiency(placed on iron and B12 supplementation) along with orthostasis and concern for BPV. She now returns as called office 03/09 with black stools since 03/08
as not feeling well and noted maroon emesis 03/10 prior to admission. On admission she had further drop in hbg to 7.6 down from 8.7 hbg on discharge and further rise in BUN up to 41 (noted normal at 15 03/06). Pt denies NSAID use other than
occasional daily ASA. +recent 10 lbs wt loss, dizziness and hx chronic constipation.
EGD/enteroscopy 03/11/2024: - Normal esophagus.
- Erythematous mucosa in the antrum. Biopsied.
- Normal duodenal bulb, first portion of the duodenum
and second portion of the duodenum.
- The examined portion of the jejunum was normal
Colonoscopy 03/11/2024:
- The examined portion of the ileum was normal.
- Tortuous colon. Dilated.
- One 20 mm, non-bleeding polyp in the proximal
ascending colon.
- Diverticulosis in the sigmoid colon, in the
descending colon, in the transverse colon, at the
hepatic flexure and in the ascending colon.
- Internal hemorrhoids.
- No specimens collected.
Impression:
-maroon emesis prior to admission -> no source of bleeding found on EGD/push enteroscopy/colonoscopy.
-Drop in hemoglobin from 8-7.0 this morning without signs of overt bleeding. Stool currently this morning brown performed on rectal exam by myself
-recurrent elevated BUN, slight increase in heart rate from baseline
-b12 deficiency- new
other medical problems:
-hx HTN
-TKR
-depression
-hysterectomy
-prior
-daily ETOH use 3 drinks daily til December
PLAN:
-Continue pantoprazole 40 mg daily
-Transfuse as ordered with repeat hemoglobin after
-CBC in a.m.
-Will change patient to clear liquid diet, no reds. Purely as a precautionary measure.
-Discussed with patient and RN at bedside. If patient were to have any change in symptoms, vitals, bowel movements showing any signs of bleeding, nausea vomiting or pain to notify RN immediately
-If stable still plan on outpatient capsule endoscopy.
Subjective
Subjective
Date of Service: March 13, 2024
Asked to reevaluate patient as hemoglobin dropped. Patient does not recall the color of her last bowel movement. I performed a rectal exam at bedside that shows yellow/brown bowel movement. She denies any abdominal pain. She is tolerating a
solid diet. The patient is going to receive packed red blood cells. She continues on pantoprazole 40 mg daily.
Objective
Data Reviewed
Laboratory Data:
Laboratory Results
03/13/24 08:38
03/13/24 05:36
Laboratory Results
APTT 28.9 Sec (23.4-35.0) 03/12/24 05:07
Total Bilirubin 0.3 mg/dl (0.2-1.3) 03/10/24 10:25
AST 19 U/L (14-36) 04/23/24 10:25
ALT < 10 U/L (0-35) 03/10/24 10:25
Alkaline Phosphatase 47 U/L (38-126) 03/10/24 10:25
Vital Signs and I&O:
Vital Signs
Temp Pulse Resp BP Pulse Ox
98.0 F 107 16 138/74 96
03/13/24 09:38 03/13/24 09:38 03/13/24 09:38 03/13/24 09:38 03/13/24 07:30
I&O
03/12/24 03/13/24 03/14/24
06:59 06:59 06:59
Intake Total 3020 / 3020 200 / 200 0 / 0
Balance 3020 / 3020 200 / 200 0 / 0
Physical Exam
Physical Exam
HEENT: Anicteric
Cardiology: Normal Sinus Rhythm
Pulmonary: Clear
GI: Soft, Non Distended, Non Tender and Normal Bowel Sounds
Rectal: Brown
Extremities: No Edema
Neuro: Non Focal
--- NOTE | 2024-03-13 12:47 | W.PN.ONC ---
Today's Communication / Plan
-
Transfuse blood as needed
Monitor CBC.
Impression
Impression
Anemia secondary to blood loss and previous iron deficiency
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
B12 deficiency
Plan
Plan
PTT 28.9 normal.
received PRBC 2 units on 03/10, Post transfusion Hb - 8.3 on 03/10
Hb today - 7.1, 2 unit of PRBC transfusion.
Monitor CBC routine.
Iron studies - within normal limits given her most recent Iv iron infusions.
Patient is scheduled for outpatient capsule endoscopy on Saturday to identify the source of bleeding.
Subjective/Objective
Subjective/Objective
Reports dizziness, meclizine not helping her.
Vital Signs:
Vital Signs
Temp Pulse Resp BP Pulse Ox
97.8 F 99 18 130/80 96
03/13/24 12:09 03/13/24 12:09 03/13/24 12:09 03/13/24 12:09 03/13/24 07:30
Lab Results:
Laboratory Data
WBC 6.1 10^3/uL (4.8-10.8) 03/13/24 05:36
Hgb 7.1 g/dL (12.0-16.0) L 03/13/24 08:38
Plt Count 205 10^3/uL (130-400) 03/13/24 05:36
APTT 28.9 Sec (23.4-35.0) 03/12/24 05:07
eGFR > 60.00 03/13/24 05:36
--- NOTE | 2024-03-13 12:48 | W.PN.HOSP.TC ---
Today's Communication/Plan
-
Monitor vitals
see Plan
2 units PRBC today and monitor hemoglobin
capsule endoscopy planned for Saturday outpatient
heme following
Daughter updated over phone
Assessment / Plan
Assessment / Plan
General: No Apparent Distress and Comfortable
HEENT: Anicteric and Moist mucous membranes
Respiratory: Clear and Non Labored Respirations; No Wheezes
Cardiac: S1/S2, Regular Rhythm and Tachycardia
Breast: Deferred by me
GI: Soft, Non Tender and Non Distended
Genito-urinary: Deferred by me
Musculoskeletal: No Edema
Neuro: Awake, Alert and Oriented
Psych: Calm
Suspect acute GI bleed
Symptoms of hematemesis and dark tarry stool
GI following, colonoscopy and push enteroscopy 03/11 did not show any signs of obvious bleeding. Colonoscopy did had few polyps and hemorrhoids. Per GI the next step is outpatient capsule endoscopy. Patient family at this time is very concerned
about her frequent bleeding and low hemoglobin. capsule endoscopy planned for friday 03/16 outpatient
hgb dropped again 7 03/13; ordered 2 units and monitor. currently put on clears per GI incase need another scope. Hematology also following. there is no overt bleeding so it could be occult GI bleeding source within small bowel for which capsule is
next step
in the meantime patient can get frequent H.H outpatient with pcp. If hgb persistently low then patient should follow-up with hematology outpatient
likely would benefit from heme follow up outpatient as well if hgb persistently low
Continue with PPI
last time patient had antibodies and needed hematology approval; also had + SAYRA
s/p 1 unit prbc 03/10
trend H/H
Hold aspirin for now
Mild hyponatremia
Monitor
Mild metabolic acidosis
Monitor
Low vitamin B12
Replete
History of seizure
Keppra
History of dizziness
Suspect be BPPH at one point but per PT this hospitalization, no signs of vertigo; seen by neurology last admission
per daughter patient has periods of dizziness before
TEDS
Continue with midodrine
History of depression
DVT prophylaxis
SCDs
CODE STATUS
Full code
PT/OT rec SNF however patient and family wants home
Discussed with Daughter over the phone
I spent a total of 54 minutes with the patient or on the floor. More than 50% of this time involved counseling and coordination of care.
Anticipated Discharge: 24 - 48 hours
Subjective/Interval History
-
Date of Service: March 13, 2024
denies pain
Objective Data
-
Labs:
Laboratory Results
03/13/24 03/13/24
05:36 08:38
WBC 6.1
Hgb 7.0 L 7.1 L
Hct 20.3 L* 20.6 L*
Plt Count 205
Sodium 135
Potassium 3.7
Chloride 110 H
Carbon Dioxide 22
BUN 18 H
Creatinine 0.8
Glucose 87
Calcium 8.3 L
Vital Signs:
Vital Signs
Temp Pulse Resp BP Pulse Ox
98.0 F 100 18 130/78 96
03/13/24 12:46 03/13/24 12:46 03/13/24 12:46 03/13/24 12:46 03/13/24 07:30
I&O
03/12/24 03/13/24 03/14/24
06:59 06:59 06:59
Intake Total 3020 / 3020 200 / 200 250 / 250
Balance 3020 / 3020 200 / 200 250 / 250
[2024-03-13] MEDS: FOLVITE 1 MG PO (13:10)
--- NOTE | 2024-03-13 13:29 | VNURNOTE ---
Home Health Liaison met with patient and daughter Cristal Hudson at 1230 to discuss [facility]/therapy, visits, schedule and homebound status. Patient is agreeable and understands that visits at home will be 2-3 x per week to assess and teach medical
management. Patient was opened recently to [facility] but would like to switch to [facility]. Upon further discussion it was determined that patient is not current with PCP due to previous MD retiring and each time she was scheduled with new PCP she ended up
back in hospital. Plan to have daughter make PCP appointment and call [facility] office once patient is scheduled. Patient and daughter in agreement.
Other daughter Nandini called moments after above and has multiple questions regarding [facility]/Palliative Care. Liaison discussed above at length again. palliative care will reach out to daughter once patient has been discharged and will discuss
plan.
[facility] brochure provided with contact information. Patient is aware that [facility] will contact them for start of care after the PCP appointment.
[facility] referral completed in [facility].
--- NOTE | 2024-03-13 15:34 | CM ---
Case management following for discharge planning
Pt referred to [facility] for Home care needs
Has not been seen by PCP recently. Pt and daughter met with Liaison from [facility] - aware can provide serves after pt seen by PCP
Referral also made for Palliative care
Pt will have ride home when d/c'ed
Plan - anticipate home [facility], after pt seen by PCP
[2024-03-13 15:49] LABS: Hematocrit 28.1 % (37.0-47.0)
[2024-03-13 15:53] LABS: Hemoglobin 9.3 g/dL (12.0-16.0)
[2024-03-13] MEDS: LIPITOR 40 MG PO (17:34)
[2024-03-14] VITALS (7 sets, daily range): BP systolic 140–158; BP diastolic 78–94
[2024-03-14] MEDS: PRISTIQ 100 MG PO (09:17)
[2024-03-14] MEDS: KEPPRA 500 MG PO ×2 (09:17→20:55)
[2024-03-14] MEDS: VITAMIN B-12 1000 MCG PO (09:17)
[2024-03-14] MEDS: PROTONIX 40 MG PO (09:17)
[2024-03-14] MEDS: FOLVITE 1 MG PO (09:17)
[2024-03-14 09:22] LABS: % Basophils 0.5 % (0-2); % Eosinophils 4.8 % (0-6); % Immature Granulocytes 0.4 % (0-0.5); % Lymphocytes 52.3 % (20.5-51.1); % Monocytes 6.4 % (1.7-9.3); % Neutrophils 35.6 % (42.2-75.2); Absolute Eosinophils 0.3 10^3/uL (0-0.7); Absolute Monocytes 0.4 10^3/uL (0.1-0.6); Hematocrit 28.6 % (37.0-47.0); Hemoglobin 10.2 g/dL (12.0-16.0); Mean Corp Hgb Conc. 35.7 g/dL (33.0-37.0); Mean Corpuscular Hgb 31.8 pg (27.0-31.0); Mean Corpuscular Volume 89.1 fL (81.0-99.0); Mean Platelet Volume 9.2 fL (7.4-10.4); Nucleated Red Blood Cells % 0 %; Platelet Count 203 10^3/uL (130-400); Red Blood Cell Count 3.21 10^6/uL (4.20-5.40); Red Cell Dist. Width 17.1 % (11.5-14.5); White Blood Cell Count 5.7 10^3/uL (4.8-10.8)
[2024-03-14 10:46] LABS: Blood Urea Nitrogen 13 mg/dl (7-17); Calcium 8.4 mg/dl (8.4-10.2); Carbon Dioxide 26 mmol/L (22-30); Chloride 106 mmol/L (98-107); Estimated Creatinine Clearance 54 ml/min; Glucose 82 mg/dl (70-99); Potassium 3.9 mmol/L (3.5-5.1); Sodium 135 mmol/L (135-145); eGFR > 60.00
--- NOTE | 2024-03-14 11:39 | W.PN.HOSP.TC ---
Today's Communication/Plan
-
monitor vitals
see plan
no further BM's reported
monitor hgb
GI to see today; on clear
hopeful dc by tomorrow and capsule saturday outpatient
Assessment / Plan
Assessment / Plan
General: No Apparent Distress and Comfortable
HEENT: Anicteric and Moist mucous membranes
Respiratory: Clear and Non Labored Respirations; No Wheezes
Cardiac: S1/S2, Regular Rhythm and Tachycardia
Breast: Deferred by me
GI: Soft, Non Tender and Non Distended
Genito-urinary: Deferred by me
Musculoskeletal: No Edema
Neuro: Awake, Alert and Oriented
Psych: Calm
Suspect acute GI bleed
Symptoms of hematemesis and dark tarry stool
GI following, colonoscopy and push enteroscopy 03/11 did not show any signs of obvious bleeding. Colonoscopy did had few polyps and hemorrhoids. Per GI the next step is outpatient capsule endoscopy. Patient family at this time is very concerned
about her frequent bleeding and low hemoglobin. capsule endoscopy planned for friday 03/16 outpatient
hgb dropped again 7 on 03/13; s/p 2 units and now hgb 10.2 . currently on clear per GI incase need another scope. Hematology also following. there is no overt bleeding so it could be occult GI bleeding source within small bowel for which capsule is
next step
in the meantime patient can get frequent H.H outpatient with pcp.
likely would benefit from heme follow up outpatient as well if hgb persistently low
Continue with PPI
last time patient had antibodies and needed hematology approval; also had + SAYRA
s/p 1 unit prbc 03/10; 2 units 03/13
trend H/H
Hold aspirin for now
Mild hyponatremia
Monitor
Mild metabolic acidosis
Monitor
Low vitamin B12
Replete
History of seizure
Keppra
History of dizziness
Suspect be BPPH at one point but per PT this hospitalization, no signs of vertigo; seen by neurology last admission
per daughter patient has periods of dizziness before
TEDS
Continue with midodrine
History of depression
DVT prophylaxis
SCDs
CODE STATUS
Full code
PT/OT rec SNF however patient and family wants home
Anticipated Discharge: Within 24 hours
Subjective/Interval History
-
Date of Service: March 14, 2024
denies pain
Objective Data
-
Labs:
Laboratory Results
03/14/24
08:33
WBC 5.7
Hgb 10.2 L
Hct 28.6 L
Plt Count 203
Sodium 135
Potassium 3.9
Chloride 106
Carbon Dioxide 26
BUN 13
Creatinine 0.7
Glucose 82
Calcium 8.4
Vital Signs:
Vital Signs
Temp Pulse Resp BP Pulse Ox
97.6 F 103 17 146/91 98
03/14/24 11:04 03/14/24 11:04 03/14/24 11:04 03/14/24 11:04 03/14/24 11:04
I&O
03/13/24 03/14/24 03/15/24
06:59 06:59 06:59
Intake Total 200 / 200 1420 / 1420
Balance 200 / 200 1420 / 1420
[2024-03-14] MEDS: LIPITOR 40 MG PO (18:18)
[2024-03-15 03:31] VITALS: BP 136/87
[2024-03-15 05:40] VITALS: BMI 22.2
[2024-03-15 07:50] VITALS: BP 142/91
[2024-03-15] MEDS: KEPPRA 500 MG PO (08:01)
[2024-03-15] MEDS: FOLVITE 1 MG PO (08:01)
[2024-03-15] MEDS: VITAMIN B-12 1000 MCG PO (08:01)
[2024-03-15] MEDS: PRISTIQ 100 MG PO (08:01)
[2024-03-15] MEDS: PROTONIX 40 MG PO (08:01)
[2024-03-15 08:38] LABS: % Basophils 0.5 % (0-2); % Eosinophils 4.9 % (0-6); % Immature Granulocytes 0.2 % (0-0.5); % Lymphocytes 49.4 % (20.5-51.1); % Monocytes 7.2 % (1.7-9.3); % Neutrophils 37.8 % (42.2-75.2); Absolute Eosinophils 0.3 10^3/uL (0-0.7); Absolute Monocytes 0.4 10^3/uL (0.1-0.6); Absolute Neutrophils 2.3 10^3/uL (1.4-6.5); Hematocrit 29.4 % (37.0-47.0); Hemoglobin 10.1 g/dL (12.0-16.0); Mean Corp Hgb Conc. 34.4 g/dL (33.0-37.0); Mean Corpuscular Hgb 31.3 pg (27.0-31.0); Mean Platelet Volume 9.4 fL (7.4-10.4); Nucleated Red Blood Cells % 0.3 %; Platelet Count 208 10^3/uL (130-400); Red Blood Cell Count 3.23 10^6/uL (4.20-5.40); Red Cell Dist. Width 16.4 % (11.5-14.5); White Blood Cell Count 6.1 10^3/uL (4.8-10.8)
--- NOTE | 2024-03-15 09:44 | W.PN.GI.CBS2 ---
Addendum entered and electronically signed by Luciana Olmos MD 03/15/24 09:55:
Prep instructions -MiRALAX mix 7 capfuls-119gm with 32 oz gatorade, drink at 9:00pm.
NPO after 10 pm tonight
Original Note:
Today's Communication / Plan
-
PLAN:
-Continue pantoprazole 40 mg daily
-Hemoglobin stable
-Will advance to low residue diet but will need to be on clear liquid diet for dinner, NPO past midnight for small bowel capsule study 03/16/24.
- Prep instructions given to pt's daughter dbera Granger in our office-should have note regarding Miralax in the evening.
-d/w
Assessment / Plan
-
Pt is a 88yo presents with hx HTN but recent hypotension, PUD years ago , new seizures with admission in [place] in January(per family drop in hbg 12 to 9 during admission or transfusions during that admission), daily ETOH use til January(3 glasses
wine daily for years), depression, TKR, hysterectomy and prior . She was admitted to 02/26- 03/06 with concern for upper GI bleed with coffee ground emesis and deep red stool with clots on admission. hbg was down to 5.5 after
admission and BUN 54. 412 EGD- Gema Do with normal esophagus, small HH, erythema in antrum, nodular mucosa in prepyloric region on stomach and normal duodenum without source for bleeding. Pt has progressive drop in BUN and stable hbg with
brown stool . hbg improved to 8.7 on 03/06 on discharge after 3 units of PRBC's needed on admission. Pt was also seen by hematology during admission with macrocytosis with work up completed with + direct antithrombolysis assay and elevated Retic
count due to bleeding. Haptoglobin was normal. She was also noted with B12 and iron deficiency(placed on iron and B12 supplementation) along with orthostasis and concern for BPV. She now returns as called office 03/09 with black stools since 4/21
as not feeling well and noted maroon emesis 03/10 prior to admission. On admission she had further drop in hbg to 7.6 down from 8.7 hbg on discharge and further rise in BUN up to 41 (noted normal at 15 03/06). Pt denies NSAID use other than
occasional daily ASA. +recent 10 lbs wt loss, dizziness and hx chronic constipation.
EGD/enteroscopy 03/11/2024: - Normal esophagus.
- Erythematous mucosa in the antrum. Biopsied.
- Normal duodenal bulb, first portion of the duodenum
and second portion of the duodenum.
- The examined portion of the jejunum was normal
Colonoscopy 03/11/2024:
- The examined portion of the ileum was normal.
- Tortuous colon. Dilated.
- One 20 mm, non-bleeding polyp in the proximal
ascending colon.
- Diverticulosis in the sigmoid colon, in the
descending colon, in the transverse colon, at the
hepatic flexure and in the ascending colon.
- Internal hemorrhoids.
- No specimens collected.
Impression:
-maroon emesis prior to admission -> no source of bleeding found on EGD/push enteroscopy/colonoscopy.
-Drop in hemoglobin from 8-7.0 this morning without signs of overt bleeding. Stool currently this morning brown performed on rectal exam by myself
-recurrent elevated BUN, slight increase in heart rate from baseline
-b12 deficiency- new
other medical problems:
-hx HTN
-TKR
-depression
-hysterectomy
-prior
-daily ETOH use 3 drinks daily til December
PLAN:
-Continue pantoprazole 40 mg daily
-Hemoglobin stable
-Will advance to low residue diet but will need to be on clear liquid diet for dinner, NPO past midnight for small bowel capsule study 03/16/24.
- Prep instructions given to pt's daughter debra Granger in our office-should have note regarding Miralax in the evening.
-d/w
Subjective
Subjective
Date of Service: March 15, 2024
No abdominal pain or BM.Tolerating clear liquid diet
Objective
Data Reviewed
Laboratory Data:
Laboratory Results
03/15/24 07:14
03/14/24 08:33
Laboratory Results
APTT 28.9 Sec (23.4-35.0) 03/12/24 05:07
Total Bilirubin 0.3 mg/dl (0.2-1.3) 03/10/24 10:25
AST 19 U/L (14-36) 03/10/24 10:25
ALT < 10 U/L (0-35) 03/10/24 10:25
Alkaline Phosphatase 47 U/L (38-126) 03/10/24 10:25
Vital Signs and I&O:
Vital Signs
Temp Pulse Resp BP Pulse Ox
98.0 F 94 18 142/91 95
03/15/24 07:50 03/15/24 07:50 03/15/24 07:50 03/15/24 07:50 03/15/24 07:50
I&O
03/14/24 03/15/24 03/16/24
06:59 06:59 06:59
Intake Total 1420 / 1420 720 / 720
Balance 1420 / 1420 720 / 720
Physical Exam
Physical Exam
GI: Soft, Non Distended and Non Tender
--- NOTE | 2024-03-15 11:03 | W.PN.HOSP.TC ---
Today's Communication/Plan
-
Monitor vital signs see plan
Spoke with GI and will discharge patient home today for capsule endoscopy tomorrow
Daughter updated over the phone
Monitor hemoglobin
Time of discharge 38-minutes
Assessment / Plan
Assessment / Plan
General: No Apparent Distress and Comfortable
HEENT: Anicteric and Moist mucous membranes
Respiratory: Clear and Non Labored Respirations; No Wheezes
Cardiac: S1/S2, Regular Rhythm
GI: Soft, Non Tender and Non Distended
Musculoskeletal: No Edema
Neuro: Awake, Alert and Oriented
Psych: Calm
Suspect acute GI bleed
Symptoms of hematemesis and dark tarry stool
GI following, colonoscopy and push enteroscopy 03/11 did not show any signs of obvious bleeding. Colonoscopy did had few polyps and hemorrhoids. Per GI the next step is outpatient capsule endoscopy. Patient family at this time is very concerned
about her frequent bleeding and low hemoglobin. capsule endoscopy planned for friday 03/16 outpatient
hgb dropped again 7 on 03/13; s/p 2 units and now hgb 10.1 . now on LRD. Prep instructions given to patient's family regarding capsule endoscopy tomorrow. Hematology also following. there is no overt bleeding so it could be occult GI bleeding source
within small bowel for which capsule is next step
in the meantime patient can get frequent H.H outpatient with pcp.
likely would benefit from heme follow up outpatient as well if hgb persistently low
Continue with PPI
last time patient had antibodies and needed hematology approval; also had + SAYRA
s/p 1 unit prbc 03/10; 2 units 03/13
trend H/H
Hold aspirin for now
Mild hyponatremia
Monitor
Mild metabolic acidosis
Monitor
Low vitamin B12
Replete
History of seizure
Keppra
History of dizziness
Suspect be BPPH at one point but per PT this hospitalization, no signs of vertigo; seen by neurology last admission
per daughter patient has periods of dizziness before
TEDS
Continue with midodrine
History of depression
DVT prophylaxis
SCDs
CODE STATUS
Full code
PT/OT rec SNF however patient and family wants home
Anticipated Discharge: Today
Subjective/Interval History
-
Date of Service: March 15, 2024
denies pain
Objective Data
-
Labs:
Laboratory Results
03/15/24
07:14
WBC 6.1
Hgb 10.1 L
Hct 29.4 L
Plt Count 208
Vital Signs:
Vital Signs
Temp Pulse Resp BP Pulse Ox
98.0 F 94 18 142/91 95
03/15/24 07:50 03/15/24 07:50 03/15/24 07:50 03/15/24 07:50 03/15/24 07:50
I&O
03/14/24 03/15/24 03/16/24
06:59 06:59 06:59
Intake Total 1420 / 1420 720 / 720
Balance 1420 / 1420 720 / 720
--- NOTE | 2024-03-15 11:09 | W.DCSUMMARY ---
Discharge Summary
Discharge Data
Date of Admission: 03/10/24
Date of Discharge: 03/15/24
-
Pending Results: No
Hospital Course
88-year-old female with recent history of GI bleed, anemia, low vitamin B12, seizure, dizziness, depression came to the hospital with recurrent episode of hematemesis and dark tarry stool concerning for GI bleed. Patient was seen by
gastroenterology throughout hospitalization and underwent colonoscopy inpatient uroscopy which did not show any signs of obvious bleeding. Per gastroenterology the neck step would be to get a capsule endoscopy which will be done outpatient.
However patient hemoglobin on this hospitalization dropped again on 03/13/2047 and she required 2 units of blood transfusion. Her hemoglobin responded well and her discharge hemoglobin was 10.1. She did not had any further bleeding prior to
discharge. On this hospitalization patient was also seen by hematology who recommended patient to follow-up with them outpatient. Since patient hemoglobin was stable and she did not had any further bleeding she was then discharged home with
instructions to follow-up closely outpatient and to get capsule endoscopy on 03/16/2024 outpatient.
Discharge Plan
-
Patient Disposition: Home (Routine Discharge)
Discharge Diagnosis/Procedures: Suspect gastrointestinal bleed
B12 deficiency
Persistent anemia
Hyponatremia
Diet: Other diet
Additional Diets: low residue diet but will need to be on clear liquid diet for dinner, NPO past midnight for small bowel capsule study 03/16/24.
Activity: As tolerated
Driving Restrictions: As prior to admission
Bathing Restrictions: None
Blood Work: CBC and BMP next week with primary care provider
Activity Restrictions/Additional Instructions:
Low residue diet but will need to be on clear liquid diet for dinner, NPO past midnight for small bowel capsule study 03/16/24.
Prep instructions -MiRALAX mix 7 capfuls-119gm with 32 oz gatorade, drink at 9:00pm.
NPO after 10 pm tonight
Recommend monitoring CBC weekly and as outpatient, and f/u with hematology if recurrent iron deficiency
Referrals:
Rena Rose MD [Active] - in one to two weeks
Latoya Erickson MD [Family Provider] - in less than 1 week
Carlos Rivera MD [Active] - in less than 1 week
Prescriptions:
New
pantoprazole 40 mg Tablet,Delayed Release (Dr/Ec)
40 mg PO DAILY Qty: 30 0RF
folic acid 1 mg Tablet
1 mg PO DAILY Qty: 30 0RF
Continued
levetiracetam 500 mg Tablet
500 mg PO Q12H
desvenlafaxine succinate 100 mg Tablet Extended Release 24 Hr
100 mg PO DAILY
midodrine 5 mg Tablet
2.5 mg PO TID@0800,1300,1800 Qty: 90 0RF
cyanocobalamin (vitamin B-12) 1,000 mcg Tablet
1,000 mcg PO DAILY Qty: 30 0RF
atorvastatin [Lipitor] 40 mg Tablet
40 mg PO QPM
meclizine 12.5 mg tablet
12.5 mg PO TIDPRN PRN (Reason: DIZZYNESS)
Held
aspirin 81 mg tablet,delayed release (DR/EC)
81 mg PO DAILY
Hold Instructions: until instructed to take by gastroenterology
ferrous gluconate 324 mg (38 mg iron) tablet
324 mg PO MOWEFR
Hold Instructions: Until instructed to take by gastroenterology
Discharge Orders:
Discharge Patient (As Directed); Ordered 03/15/24
Ordered By: Hai Daniel
Discharge Date and Time
Discharge Date/Time: 03/15/24 14:09
Print Language: MALTESE
[2024-03-15 11:19] VITALS: BP 123/76
--- NOTE | 2024-03-15 12:02 | CM ---
Met with patient
IMM benefit explained; form signed @ 1200
Daughter will provide transport home
Plan: discharge to home with home health services from [facility]
== END 2024-03-15 14:09 | disposition home health service (06) | DRG 378 ==
LOC: 3 WEST ACU 13:48
PROVIDERS: Nurse Practitioner Family; Physician Assistant; ADMITTING PHYSICIAN Internal Medicine; CONSULT PHYSICIAN Internal Medicine Gastroenterology; CONSULT PHYSICIAN Internal Medicine Hematology & Oncology; EMERGENCY PHYSICIAN Emergency Medicine; FAMILY PHYSICIAN Family Medicine
PROC: 30233N1 Transfusion of Nonautologous Red Blood Cells into Peripheral Vein, Percutaneous Approach (ICD-10-PCS; 2024-03-10)
PROC: 0DB78ZX Excision of Stomach, Pylorus, Via Natural or Artificial Opening Endoscopic, Diagnostic (ICD-10-PCS; 2024-03-11)
PROC: 0D7N8ZZ Dilation of Sigmoid Colon, Via Natural or Artificial Opening Endoscopic (ICD-10-PCS; 2024-03-11)
DX: K57.31 Diverticulosis of large intestine without perforation or abscess with bleeding (principal); D62 Acute posthemorrhagic anemia; E87.1 Hypo-osmolality and hyponatremia; E87.20 Acidosis, unspecified; R09.02 Hypoxemia; K92.1 Melena; I10 Essential (primary) hypertension; F32.A Depression, unspecified; F10.90 Alcohol use, unspecified, uncomplicated; R63.4 Abnormal weight loss; I95.9 Hypotension, unspecified; K64.0 First degree hemorrhoids; D12.2 Benign neoplasm of ascending colon; D50.9 Iron deficiency anemia, unspecified; E53.8 Deficiency of other specified B group vitamins; E88.09 Other disorders of plasma-protein metabolism, not elsewhere classified; K59.09 Other constipation; F41.9 Anxiety disorder, unspecified; K31.89 Other diseases of stomach and duodenum; Q89.9 Congenital malformation, unspecified; Z96.651 Presence of right artificial knee joint; Z87.11 Personal history of peptic ulcer disease; Z87.891 Personal history of nicotine dependence; Z68.22 Body mass index [BMI] 22.0-22.9, adult; Z79.82 Long term (current) use of aspirin
CPT/HCPCS: 88305; 80048; 80053; 82607; 82728; 82746; 83540; 83550; 84466; 85014; 85018; 85025; 85730; 86850; 86870; 86900; 86901; 86902; 86920; 86922; 93005; 96374; 97163; 97167; 97530; 99285; P9016

== ENCOUNTER 2024-03-17 18:48 | Inpatient (IN) | payer MEDICARE, OTHER, SELFPAY ==
[2024-03-17] VITALS (7 sets, daily range): BP systolic 106–141; BP diastolic 68–81; BMI 22.2
--- NOTE | 2024-03-17 15:25 | ED.GENMED ---
History of Present Illness
General
Chief Complaint: Rectal Bleeding
Source: patient, records and family
Time Seen by Provider: 03/17/24 15:06
Travel History
Have you had any contact with someone who has COVID-19?: No
Do you have any symptoms of coronavirus? Fever > 100 degrees, chills, cough, shortness of breath, sore throat, loss of taste or smell, muscle aches, or headache?: No
History of Present Illness
History of Present Illness:
88-year-old female presenting back to the emergency department after being admitted twice this month for upper and lower GI bleeding stating that the bleeding continues and patient is feeling continuously lightheaded and dizzy. Patient reports that
when she does have a bowel movement it is dark melanotic stool. She also has had some intermittent episodes of hematemesis described to be intermittently dark as well. Patient had an upper and lower endoscopy done during her admissions with no
obvious cause found, swallowed a PillCam on Saturday so the results of this are unknown as of yet no areas of bleeding were identified on the scopes. Patient is denying any fevers, chills, rigors or any other concerns presently.
Past History
Past History
ED Past Medical History: Hypercholesterolemia, Seizures, Hypothyroidism, Psychiatric and Other (GI bleeding)
ED Past Surgical History: , Gynecological and Orthopedic
Social History
Tobacco: Non-smoker
Alcohol: Former
Drug: None
Personal:
Living: with family
Employment: Retired
Review of Systems
Review of Systems
All Other Systems: ROS reviewed and negative except as documented in HPI and ROS
Phy Exam
Physical Exam
Physical Exam:
GENERAL: Alert , in no apparent distress
EYE: clear conjunctiva b/l
HEAD: NCAT
ENT: o/p clr, mmm.
CARDIAC: Borderline tachycardic rate and rhythm, no murmur
LUNGS: Clear breath sounds bilaterally, no acute respiratory distress, no wheezes/rales/rhonchi
ABDOMEN: Soft, without focal tenderness, no r/g, no cvat
NEUROLOGICAL: Alert and oriented
SKIN: Warm and dry, skin intact. Pale
MUSCULOSKELETAL: well perfused.
PSYCH: Normal and appropriate interaction.
Scores
Heart Failure Risk
Heart Failure Risk Score: Not Applicable
Heart Score for Chest Pain Patients
STEMI patient?: Not applicable
Withdrawal Assessment of Alcohol
Withdrawal Assessment Completed?: Not applicable
Course
Orders/Labs/Results
Orders:
Orders
03/17/24 15:05
Cardiac Monitoring- Treatment ONCE
IV Insert/Care/Rem.- Treatment PRN
O2 Therapy [RESP] Urgent
Titrate/Wean O2 to maintain O2 sat greater than (%): 93
Special Instructions: MAINTAIN CONTINOUS O2 SATS > OR = 93%
Pulse Ox/spot Check [RESP] Urgent
Quantity: 1
Special Instructions: ON ROOM AIR
03/17/24 15:07
Basic Metabolic Panel Urgent
Complete Blood Count/With Diff Urgent
03/17/24 15:16
Pantoprazole 80 mg/100 ml Nss [Protonix] 80 mg in 100 ml IV NOW
Pantoprazole [Protonix IV] 80 mg IV NOW STA
03/17/24 15:17
IV Insert/Care/Rem.- Treatment PRN
03/17/24 15:51
Type+Screen Urgent
BBK Wristband Number:
Abnormal Lab Results
03/17/24
15:07
WBC 11.5 H 10^3/uL
(4.8-10.8)
RBC 3.23 L 10^6/uL
(4.20-5.40)
Hgb 10.2 L g/dL
(12.0-16.0)
Hct 31.3 L %
(37.0-47.0)
MCH 31.6 H pg
(27.0-31.0)
MCHC 32.6 L g/dL
(33.0-37.0)
RDW 16.5 H %
(11.5-14.5)
Abs Immat Gran (auto) 0.1 H 10^3/uL
(0-0.05)
Absolute Neuts (auto) 6.7 H 10^3/uL
(1.4-6.5)
Absolute Lymphs (auto) 4.1 H 10^3/uL
(1.2-3.4)
Immature Gran % 0.6 H %
(0-0.5)
Carbon Dioxide 20 L mmol/L
(22-30)
BUN 46 H mg/dl
(7-17)
Glucose 158 H mg/dl
(70-99)
03/17/24 15:07
03/17/24 15:07
Vital Signs
Initial and Last Documented VS:
Initial Vital Signs
Temp Pulse Resp BP Pulse Ox
98.8 F 119 20 121/78 80
03/17/24 14:52 03/17/24 14:52 03/17/24 14:52 03/17/24 14:52 03/17/24 14:52
Last Documented Vital Signs
Temp Pulse Resp BP Pulse Ox
98.8 F 107 29 106/71 95
03/17/24 14:52 03/17/24 17:15 03/17/24 17:15 03/17/24 17:00 03/17/24 17:15
MDM/Problems Addressed
Differential Diagnosis Includes:
Upper GI bleed likely secondary to previous chronic alcohol use, anemia, electrolyte disturbance
MDM/Problems Addressed:
88-year-old female presenting back to the emergency department after already being admitted twice this month for GI bleeding. Family notes that GI bleeding has persisted and worsened since discharge on Saturday. Patient arrives to the emergency
department normotensive but is tachycardic and stating she is feeling quite unwell. Repeat labs ordered. Will treat with Protonix. Will likely need repeat blood transfusion. Will plan for admission with GI in consult.
Chronic conditions affecting care: Other (GI bleeding)
Acute Exacerbation and/or Progression of Chronic Illness: Other (GI bleeding)
*Pulse Oximetry
Patient hypoxic: no
*Critical Care Note
Total Time (30-74mins, 75-104mins- exclusive of procedures): Not Applicable
Data Reviewed
Review of Other/Old Records Reveals: Labs, Records and Testing
Source: patient and records
Patient Management
Discussion with other providers: Hospitalist and Application Chemist
Escalation/DeEscalation of care consider admission/obs:
Patient's hemoglobin came back at 10.2 which is certainly encouraging given her reported hematemesis and hematochezia since her discharge. Hemoglobin then was 10.1, today 10.2. Given her age, chronic medical conditions and presenting symptoms I do
feel it would be in patient's best interest to be readmitted to have her hemoglobin trended overnight. GI team is in agreement with this plan and will consult on the patient. Hospitalist team is aware and accepts for continued evaluation and
treatment.
ED Attending Note
-
Portions of this chart may have been created with voice recognition software.� Occasional wrong word or��sound alike� substitutions may have occurred due to the inherent limitations of voice recognition software.
Discharge Plan
Departure
Patient Disposition: Admit
Date of Disposition: 03/17/24
Time of Disposition: 17:31
Presentation/result/management discussed w/ accepting MD/DO: Hospitalist
Discharge Problem:
GI bleed, Anemia
Prescriptions:
No Action
levetiracetam 500 mg Tablet
500 mg PO Q12H
desvenlafaxine succinate 100 mg Tablet Extended Release 24 Hr
100 mg PO DAILY
midodrine 5 mg Tablet
2.5 mg PO TID@0800,1300,1800 Qty: 90 0RF
atorvastatin [Lipitor] 40 mg Tablet
40 mg PO QPM
meclizine 12.5 mg tablet
12.5 mg PO TIDPRN PRN (Reason: DIZZYNESS)
polyethylene glycol 3350 [Miralax] 17 gram Powder In Packet
17 g PO DAILYPRN PRN (Reason: constipation)
pantoprazole 40 mg tablet,delayed release (DR/EC)
40 mg PO DAILY
folic acid 1 mg tablet
1 mg PO DAILY
Referrals:
Latoya Erickson MD [Family Provider] -
Interventions
Interventions:
AN-Xymkoq-Ihoaujlccq Assessment Last Done: 03/17/24 15:41
ED- Cardiac Assessment Last Done: 03/17/24 15:40
ED- Pulmonary Assessment Last Done: 03/17/24 15:40
Discharge Date and Time
Print Language: MALDIVIAN
[2024-03-17] MEDS: PROTONIX IV 80 MG IV (15:26)
[2024-03-17] MEDS: PROTONIX 100 IV (15:27)
[2024-03-17 15:40] LABS: % Basophils 0.3 % (0-2); % Eosinophils 0.9 % (0-6); % Immature Granulocytes 0.6 % (0-0.5); % Lymphocytes 35.4 % (20.5-51.1); % Monocytes 4.8 % (1.7-9.3); Absolute Eosinophils 0.1 10^3/uL (0-0.7); Absolute Immature Granulocytes 0.1 10^3/uL (0-0.05); Absolute Lymphocytes 4.1 10^3/uL (1.2-3.4); Absolute Monocytes 0.6 10^3/uL (0.1-0.6); Absolute Neutrophils 6.7 10^3/uL (1.4-6.5); Hematocrit 31.3 % (37.0-47.0); Hemoglobin 10.2 g/dL (12.0-16.0); Mean Corp Hgb Conc. 32.6 g/dL (33.0-37.0); Mean Corpuscular Hgb 31.6 pg (27.0-31.0); Mean Corpuscular Volume 96.9 fL (81.0-99.0); Mean Platelet Volume 9.4 fL (7.4-10.4); Nucleated Red Blood Cells % 0 %; Platelet Count 308 10^3/uL (130-400); Red Blood Cell Count 3.23 10^6/uL (4.20-5.40); Red Cell Dist. Width 16.5 % (11.5-14.5); White Blood Cell Count 11.5 10^3/uL (4.8-10.8)
[2024-03-17 15:54] LABS: Blood Urea Nitrogen 46 mg/dl (7-17); Calcium 9.5 mg/dl (8.4-10.2); Carbon Dioxide 20 mmol/L (22-30); Chloride 107 mmol/L (98-107); Glucose 158 mg/dl (70-99); Sodium 138 mmol/L (135-145); eGFR > 60.00
--- NOTE | 2024-03-17 17:46 | HPS.HSE ---
Addendum entered and electronically signed by Edwin Aldridge MD 03/17/24 20:32:
I saw and examined the patient.
The DRAFTING LAYOUT MAN or PA's note was reviewed and I agree with the note.
Comment:
88Fhx peptic ulcer disease anxiety HTN/hypotension seizures former smoker depression/anxiety
persistent anemia presents for evaluation darke melenic stools. Patient's third hospitalizatoin
for possible GI bleed this month. Most recently patient was discharged from this facility
2 days ago with capsule endoscopy performed the very next day. Capsule remains in patient's
GI tract on presentation. Brought in by daughter concerns for persisten melenic stools
with associate lightheadedness dizziness, possibly chronic.
Physical Exam
General: No pallor, cyanosis, or jaundice.
HEENT: Throat clear. PERRLA Normocephalic atraumatic
NECK: Supple. No JVD Carotid Bruits
RESPIRATORY: Lungs clear to auscultation. No crackles wheezes stridor
CVS: S1, S2 sinus tachy. No murmur, rub or gallop.
ABDOMEN: Soft, non-tender. No distension. Hypoactive bowel sounds
EXTREMITIES: No peripheral cyanosis or edema. Able to lift legs off bed
UNIVERSITY PROFESSOR: AOx3.
#GI Bleed unclear etiology recent capsule endoscopy
#B12 deficiency
#Anemia of Chronic Disease
B12 supplementation
monitor H&H
GI eval
protonix
IVF supplementation
PT/OT
Original Note:
Family Physician
-
Family Physician: Latoya Erickson
Chief Complaint
-
Hematemesis, melena tonic stool
History of Present Illness
88-year-old female complaining of dark melatonin stool with prior dry heaves. The patient's daughter Nandini states she became frazzled and accidentally told the ER PA that her mother vomited dark in color but she did not have any vomiting. She
also complains of feeling chronic lightheaded and dizzy. She had a capsule Endo completed on Saturday yesterday 03/16/2024 but has no current results. She prepped on Saturday with 7 capfuls of MiraLAX with 16 ounces of water then Saturday morning had
additional 17 Granulox with 8 ounces of water and 16 ounces of water yesterday with 3 meatballs. For total of 40 ounces of water in 4 days. Her current hemoglobin is 10.2 which was stable from discharge on 03/15 where it was 10.1. She does have
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 She denies headache, fever, chills, chest pain, palpitations, shortness of breath, cough, abdominal pain,
nausea, vomiting, urinary symptoms.
The patient had admission 02/26-03/06 and 03/10 - 03/15/2024 for hematemesis with dark tarry stools she was seen by GI underwent colonoscopy with inpatient uterus copy which did not show any signs of obvious bleeding it was recommended she have
outpatient capsule endoscopy done. She did require 2 units of blood as her hemoglobin dropped on 426. On discharge it was 10.1 with no further bleeding. She was scheduled for capsule endoscopy on 03/16/2024. Other PMH peptic ulcer disease,
anxiety, HTN, seizures, former smoker, depression, persistent anemia.
Medical History
Past Medical History
Past Medical History: Reports Other
Additional Past Medical History:
peptic ulcer disease
anxiety
HTN/hypotension
seizures
former smoker
depression/anxiety
persistent anemia
GI bleed
Benign positional vertigo
Past Surgical History: Reports Other
Additional Past Surgical History:
Right knee replaced
section
Hysterectomy
Social History
Tobacco: Non-smoker
Alcohol: None
Drug: None
Personal: Single
Living: With Family
Employment: Retired
Family History
Family History: Not pertinent
Allergies / Home Medications
Allergies reflects when Allergies were last updated in [facility].
Home Medications with original date entered in [facility]
Allergy/Medication List:
Allergies
Allergy/AdvReac Type Severity Reaction Status Date / Time
No Known Allergies Allergy Verified 03/17/24 14:52
Home Medications
desvenlafaxine succinate 100 mg tablet,extended release 24 hr 100 mg PO DAILY Mental Health/Anxiety 02/27/24
levetiracetam 500 mg tablet 500 mg PO Q12H Seizures 02/27/24
midodrine 5 mg tablet 2.5 mg (1/2 x 5 mg) PO TID@0800,1300,1800 Blood pressure #90 tabs 03/06/24
atorvastatin 40 mg tablet (Lipitor) 40 mg PO QPM High Cholesterol 03/10/24
meclizine 12.5 mg tablet 12.5 mg PO TIDPRN PRN DIZZYNESS 03/10/24
folic acid 1 mg tablet 1 mg PO DAILY Supplement 03/17/24
pantoprazole 40 mg tablet,delayed release 40 mg PO DAILY Gastrointestinal Issue 03/17/24
polyethylene glycol 3350 17 gram oral powder packet (Miralax) 17 g PO DAILYPRN PRN constipation 03/17/24
Review of Systems
-
History Source: Patient and Family (Daughter Nandini at bedside)
A 12 point ROS was completed and negative except as noted: Yes
Constitutional: Reports Fatigue; Denies Fever or Chills
EENT: Denies Sore Throat or Runny Nose
Respiratory: Denies Cough, Hemoptysis or Trouble Breathing
Cardiac: Denies Chest Pain, Diaphoresis or Palpitations
Abdomen/GI: Reports Nausea and Black Stools; Denies Abdominal Pain, Vomiting, Diarrhea, Constipated or Bloody Stools
: Denies Dysuria, Frequency, Flank Pain, Incontinence, Difficulty Voiding or Urgency
Musculoskeletal: Denies Joint Pain or Edema
Skin: Denies Itching or Rash
Neurological: Reports Dizzy and Weakness; Denies Headache or Numbness
Endocrine: Reports No Symptoms
Hematologic/Lymphatic: Reports No Symptoms
Psych: Reports Calm
Physical Exam
Vital Signs
Vital Signs
Temp Pulse Resp BP Pulse Ox
98.8 F 107 29 106/71 95
03/17/24 14:52 03/17/24 17:15 03/17/24 17:15 03/17/24 17:00 03/17/24 17:15
Physical Exam
General: Comfortable and Conversant; No Pain, Fever or Chills
HEENT: NormoCephalic, Anicteric, PERRLA, [place] Conjunctivae, No Ptosis and Other (Dry oral mucosa)
Respiratory: Clear; No Wheezes, Rales or Rhonchi
Cardiac: S1/S2 and Regular Rhythm; No Murmur, Rub, Gallop or Peripheral Edema
GI: Soft, Non Tender, Non Distended, Normal Bowel Sounds and No Hepatosplenomegaly
Rectal: Hem Positive (melatonic stool in ER)
Genito-urinary: Deferred by me
Musculoskeletal: No Clubbing, No Cyanosis and No Edema
Skin: Warm and Dry; No Rash or Jaundice
Neuro: AO x 3, No Motor Deficits, Nonfocal/grossly intact and No Sensory Deficits; No Slurred Speech, Facial Droop or Tremors
Psych: Calm
Laboratory Results
-
03/17/24 15:07
03/17/24 15:07
Laboratory Results
Total Bilirubin Cancelled 03/17/24 15:07
AST Cancelled 03/17/24 15:07
ALT Cancelled 03/17/24 15:07
Alkaline Phosphatase Cancelled 03/17/24 15:07
Impression/Plan
-
Impression/plan:
Admit to telemetry
#melenatonic stool suspect GI bleed
#Persistent anemia/B12 deficiency
-Third admission since 02/27/2024
03/11/24 Underwent colonoscopy with inpatient uteroscope be which did not show any signs of obvious bleeding
-S/P capsule Endo 03/16/2024 After prep sat 7 caps miralax w/16 oz water, saturday 17 gm with 8 oz water then 16 oz water last night with 3 meatballs TOTAL 40 oz water in 4 days
-Consult GI-Dr. Gonzalez made aware patient did not have any hematicemesis as daughter Nandini states she became frazzled and gave wrong information
-Per discussion with GI okay to resume oral medications IV PPI daily clear liquid diet and IV fluids
-cont folic acid while n.p.o.
-IV PPI daily
-clear liquid
-IV Zofran
-Type and screen
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
# Acute dehydration secondary to decreased fluid intake
Total 40 ounce water in 4 days total Measured with measuring cup by daughter
Bun 42
-IV NSS 1 L, then NSS 100 cc an hour
-Follow BMP
#Orthostatic hypotension Hx
106/71 > 123/82
-Continue midodrine 2.5 mg 3 times daily
#Seizure disorder
-Continue Keppra 500 mg every 12 hours
#History of dizziness suspected benign positional vertigo
-Continue teds
-Takes meclizine 12.5 mg p.o. 3 times daily as needed dizziness
-Continue midodrine 2.5 mg 3 times daily
#HLD
-cont Lipitor 40 mg daily
#Depression/anxiety
-Continue Pristiq 100 mg daily
DVT prophylaxis
SCDs
Full code
[2024-03-17] MEDS: NSS 1000 IV ×2 (18:37→23:02)
[2024-03-17] MEDS: KEPPRA 500 MG PO (20:39)
[2024-03-18] VITALS (8 sets, daily range): BP systolic 125–180; BP diastolic 64–105; PULSE 104; O2SAT 99; BMI 22.2
[2024-03-18 06:16] LABS: % Basophils 0.5 % (0-2); % Eosinophils 4.4 % (0-6); % Immature Granulocytes 0.5 % (0-0.5); % Lymphocytes 61.5 % (20.5-51.1); % Monocytes 6.9 % (1.7-9.3); % Neutrophils 26.2 % (42.2-75.2); Absolute Eosinophils 0.3 10^3/uL (0-0.7); Absolute Lymphocytes 3.9 10^3/uL (1.2-3.4); Absolute Monocytes 0.4 10^3/uL (0.1-0.6); Absolute Neutrophils 1.7 10^3/uL (1.4-6.5); Hemoglobin 7.6 g/dL (12.0-16.0); Mean Corpuscular Hgb 31.7 pg (27.0-31.0); Mean Corpuscular Volume 95.8 fL (81.0-99.0); Mean Platelet Volume 9.8 fL (7.4-10.4); Nucleated Red Blood Cells % 0.3 %; Platelet Count 212 10^3/uL (130-400); Red Cell Dist. Width 16.3 % (11.5-14.5); White Blood Cell Count 6.4 10^3/uL (4.8-10.8)
[2024-03-18 06:50] LABS: Blood Urea Nitrogen 33 mg/dl (7-17); Calcium 8.3 mg/dl (8.4-10.2); Carbon Dioxide 24 mmol/L (22-30); Chloride 112 mmol/L (98-107); Estimated Creatinine Clearance 47 ml/min; Glucose 80 mg/dl (70-99); Potassium 4.3 mmol/L (3.5-5.1); Sodium 137 mmol/L (135-145); eGFR > 60.00
--- NOTE | 2024-03-18 07:02 | W.PN.HOSP.TC ---
Today's Communication/Plan
-
monitor H&H
1PRBC ordered in preparation for possible need transfusion, given hx ab's
Clear liquid diet as per GI
PT/OT
Assessment / Plan
Assessment / Plan
Physical Exam
General: pallor+ no cyanosis, or jaundice.
HEENT: Throat clear. PERRLA Normocephalic atraumatic
NECK: Supple. No JVD Carotid Bruits
RESPIRATORY: Lungs clear to auscultation. No crackles wheezes stridor
CVS: S1, S2 sinus tachy. No murmur, rub or gallop.
ABDOMEN: Soft, non-tender. No distension. Hypoactive bowel sounds
EXTREMITIES: No peripheral cyanosis or edema. Able to lift legs off bed
TEMPLE MEAT CUTTER: AOx3.
88Fhx peptic ulcer disease anxiety HTN/hypotension seizures former smoker depression/anxiety persistent anemia presents for evaluation darke melenic stools. Patient's third hospitalization for GI bleed this month. Most recently patient was
discharged from this facility 2 days prior to this hospitalization, with capsule endoscopy performed the very next day. Capsule remains in patient's GI tract on presentation. Brought in by daughter concerns for persistent melenic stools with
associate lightheadedness dizziness.
#melenic stool GIB
#Persistent anemia/B12 deficiency
#Hx ab's present in type and cross
-Third admission since 02/27/2024
-03/11/24 Underwent colonoscopy with inpatient uteroscope which did not show any signs of obvious bleeding
-S/P capsule Endo 03/16/2024
-Consult GI appreciated cont clear liquid diet
-Abd XR imaging reviewed noted capsule remains in patient's digestive tract, awaiting Radiology read/official report
-IV PPI daily
-IV Zofran prn
-Hgb drop from initial 10 to 7 noted, likely initial Hgb hemoconcentrated, 7 also likely dilutional with IVF, since improved to 8's on repeat
-ordered 1PRBC in preparation for need transfusion d/t hx antibodies.
-B12 supplementation resumed (Daughter reports patient was recommended to stop, unable to verify in review of records and discussion with GI)
#Acute dehydration secondary to decreased fluid intake
-IVF supplementation
#Orthostatic hypotension Hx
-Continue midodrine 2.5 mg 3 times daily with holding parameters
#Seizure disorder
-Continue Keppra 500 mg every 12 hours
#History of dizziness suspected benign positional vertigo
-Continue TEDs
-Takes meclizine 12.5 mg p.o. 3 times daily as needed dizziness
#HLD
-cont Lipitor 40 mg daily
#Depression/anxiety
-Continue Pristiq 100 mg daily
PT/OT appreciated HH
DVT prophylaxis
SCDs
Full code
discussed with patient and her daughters Cristal Hudson (shares name with patient) and Nandini (primary contact as listed in [facility])
I spent a total of 58 minutes with the patient or on the floor. More than 50% of this time involved counseling and coordination of care.
Anticipated Discharge: > 48 hours
Subjective/Interval History
-
Date of Service: March 18, 2024
no acute distress resting comfortably in bed. Continues to report melenic stools.
Objective Data
-
Labs:
Laboratory Results
03/18/24
05:09
WBC 6.4
Hgb 7.6 L D
Hct 23.0 L
Plt Count 212 D
Sodium 137
Potassium 4.3
Chloride 112 H
Carbon Dioxide 24
BUN 33 H
Creatinine 0.8
Glucose 80
Calcium 8.3 L
Vital Signs:
Vital Signs
Temp Pulse Resp BP Pulse Ox
97.8 F 103 18 125/66 93
03/18/24 03:56 03/18/24 03:56 03/18/24 03:56 03/18/24 03:56 03/18/24 03:56
I&O
03/17/24 03/18/24 03/19/24
06:59 06:59 06:59
Intake Total 1979
Balance 1979
--- NOTE | 2024-03-18 08:51 | W.PN.GI.CBS2 ---
Today's Communication / Plan
-
See assessment and plan for details.
Assessment / Plan
-
1. Obscure GI bleed: With essentially negative EGD, enteroscopy, colonoscopy. She is mildly tachycardic though has been persistently tachycardic, blood pressure is stable, only 1 bowel movement yesterday, no other significant bowel movements. She
has no new acute symptoms yesterday, and feels the same as she did prior to discharge, with baseline fatigue and dizziness when standing. Her hemoglobin on admission was 10, now down around 2 and half grams today though again no gross bleeding. At
this point we will repeat CBC to assure that this was not lab variation. Will check KUB to assess if Capsocam is retained, the patient has her kit at bedside and knows to screen her stools for Capsocam. May consider CTA if signs of brisk bleeding,
but will hold for now pending assessment of Capsocam with likely artifact and no significant bowel movements overnight. Pending clinical course if still has significant bleeding would likely transfer to tertiary center for DBE. Will continue IV
fluids, supportive care and clear liquids for now.
Subjective
Subjective
Date of Service: March 18, 2024
Please see previous consultations from the last week for full details. The patient is an 88-year-old female who presents with recurrent dark stools and lightheadedness. She has had long course over the past month, initially with presentation with
coffee-ground emesis and melena, hemoglobin into the fives initially transfused 3 units in the beginning of February with negative EGD. Her hemoglobin was stable and was discharged though had recurrent bleeding, had enteroscopy and colonoscopy which
were essentially unremarkable except for colon polyp which was not removed. She then had several days of stable hemoglobin and no gross bleeding and was discharged, had Capsocam ingested on Saturday, yesterday brought back to the emergency room with
continued lightheadedness and black stools. She feels overall weak and dizzy if she stands though this is the same as she has been over the past several weeks and no different yesterday. She had 1 dark bowel movement yesterday morning and 1 small
smear overnight per nursing though otherwise no bowel movements. She denies any vomiting or nausea and has no abdominal pain, chest pain or shortness of breath. She denies any NSAIDs.
Objective
Data Reviewed
Laboratory Data:
Laboratory Results
03/18/24 05:09
03/18/24 05:09
Laboratory Results
Total Bilirubin Cancelled 03/17/24 15:07
AST Cancelled 03/17/24 15:07
ALT Cancelled 03/17/24 15:07
Alkaline Phosphatase Cancelled 03/17/24 15:07
Vital Signs and I&O:
Vital Signs
Temp Pulse Resp BP Pulse Ox
97.8 F 103 16 129/64 98
03/18/24 07:00 03/18/24 07:00 03/18/24 07:00 03/18/24 07:00 03/18/24 07:00
I&O
03/17/24 03/18/24 03/19/24
06:59 06:59 06:59
Intake Total 1979
Balance 1979
Physical Exam
Physical Exam
General: NAD
Abdomen: normal bowel sounds, soft, no tenderness, no masses or bruits, no ascites
Chaperoned rectal exam showed small amount of black stool in the rectal vault
[2024-03-18] MEDS: NSS (PRESERVATIVE FREE) 10 ML IV (08:57)
[2024-03-18] MEDS: PROTONIX IV 40 MG IV (08:57)
[2024-03-18] MEDS: KEPPRA 500 MG PO ×2 (08:58→20:22)
[2024-03-18] MEDS: PRISTIQ 100 MG PO (08:58)
[2024-03-18] MEDS: FOLVITE 1 MG PO (08:58)
[2024-03-18] MEDS: ProAmatine 2.5 MG PO (08:59)
[2024-03-18] MEDS: VITAMIN B-12 1000 MCG PO (09:00)
[2024-03-18] MEDS: NSS 1000 IV ×2 (09:04→21:12)
[2024-03-18 10:04] LABS: Hematocrit 25.4 % (37.0-47.0); Hemoglobin 8.5 g/dL (12.0-16.0); Mean Corp Hgb Conc. 33.5 g/dL (33.0-37.0); Mean Corpuscular Hgb 32.3 pg (27.0-31.0); Mean Corpuscular Volume 96.6 fL (81.0-99.0); Mean Platelet Volume 9.6 fL (7.4-10.4); Platelet Count 228 10^3/uL (130-400); Red Blood Cell Count 2.63 10^6/uL (4.20-5.40); Red Cell Dist. Width 16.7 % (11.5-14.5); White Blood Cell Count 6.6 10^3/uL (4.8-10.8)
[2024-03-18] MEDS: ProAmatine PO ×2 (14:05→17:21)
[2024-03-18 16:26] LABS: Hematocrit 25.8 % (37.0-47.0); Hemoglobin 8.6 g/dL (12.0-16.0); Mean Corp Hgb Conc. 33.3 g/dL (33.0-37.0); Mean Corpuscular Hgb 31.2 pg (27.0-31.0); Mean Corpuscular Volume 93.5 fL (81.0-99.0); Mean Platelet Volume 8.9 fL (7.4-10.4); Platelet Count 236 10^3/uL (130-400); Red Blood Cell Count 2.76 10^6/uL (4.20-5.40); Red Cell Dist. Width 16.3 % (11.5-14.5)
[2024-03-18] MEDS: LIPITOR 40 MG PO (17:28)
[2024-03-19] VITALS (8 sets, daily range): BP systolic 102–151; BP diastolic 42–94; PULSE 92; O2SAT 95
--- NOTE | 2024-03-19 00:02 | PTCARENOTE ---
Pt had 15 beats of vtach. Asymptomatic. VSS. GUEST ATTENDANT notified and labs order for am.
--- NOTE | 2024-03-19 06:29 | W.PN.GI.CBS2 ---
Today's Communication / Plan
-
See assessment and plan for details.
Assessment / Plan
-
1. 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 She is mildly tachycardic though has been persistently tachycardic, blood pressure is stable, only 1 bowel movement yesterday, no other
significant bowel movements. KUB yesterday showed VCE still within abdomen. Hemoglobin has been stable, only 1 bowel movement yesterday which was more brown than black, doubt active bleeding now, has been many days since required any transfusion.
At this point will advance diet, will continue to screen for VCE in her stool, await morning labs. If all remains stable then possible DC tomorrow and follow-up on VCE, if signs of significant active bleeding likely transfer to tertiary center for
DVT.
Subjective
Subjective
Date of Service: March 19, 2024
Patient feeling well, no abdominal pain, nausea or vomiting. Had 1 bowel movement yesterday, very dark brown, not black.
Objective
Data Reviewed
Laboratory Data:
Laboratory Results
Total Bilirubin Cancelled 03/17/24 15:07
AST Cancelled 03/17/24 15:07
ALT Cancelled 03/17/24 15:07
Alkaline Phosphatase Cancelled 03/17/24 15:07
Vital Signs and I&O:
Vital Signs
Temp Pulse Resp BP Pulse Ox
98.0 F 92 16 125/72 96
03/19/24 03:40 03/19/24 03:40 03/19/24 03:40 03/19/24 03:40 03/19/24 03:40
I&O
03/17/24 03/18/24 03/19/24
06:59 06:59 06:59
Intake Total 1979
Balance 1979
Physical Exam
Physical Exam
General: NAD
Abdomen: normal bowel sounds, soft, no tenderness, no masses or bruits, no ascites
--- NOTE | 2024-03-19 06:49 | W.PN.HOSP.TC ---
Today's Communication/Plan
-
monitor H&H
Diet advance as per GI
IVF completed
PT/OT
Assessment / Plan
Assessment / Plan
Physical Exam
General: pallor+ no cyanosis, or jaundice.
HEENT: Throat clear. PERRLA Normocephalic atraumatic
NECK: Supple. No JVD Carotid Bruits
RESPIRATORY: Lungs clear to auscultation. No crackles wheezes stridor
CVS: S1, S2 sinus tachy. No murmur, rub or gallop.
ABDOMEN: Soft, non-tender. No distension. Hypoactive bowel sounds
EXTREMITIES: No peripheral cyanosis or edema. Able to lift legs off bed
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
88Fhx peptic ulcer disease anxiety HTN/hypotension seizures former smoker depression/anxiety persistent anemia presents for evaluation darke melenic stools. Patient's third hospitalization for GI bleed this month. Most recently patient was
discharged from this facility 2 days prior to this hospitalization, with capsule endoscopy performed the very next day. Capsule remains in patient's GI tract on presentation. Brought in by daughter concerns for persistent melenic stools with
associate lightheadedness dizziness.
#melenic stool GIB
#Persistent anemia/B12 deficiency
#Hx ab's present in type and cross
-Third admission since 02/27/2024
-03/11/24 Underwent colonoscopy with inpatient uteroscope which did not show any signs of obvious bleeding
-S/P capsule Endo 03/16/2024
-Consult GI appreciated clear liquid diet advanced to Regular
-Abd XR appreciated Ingested pill cam in the region of the proximal ileum
-capsule since passed, daughter Fedex capsule as planned for study review
-IV PPI daily
-IV Zofran prn
-Hgb drop from initial 10 to 7 noted, likely initial Hgb hemoconcentrated, 7 also likely dilutional with IVF, since improved to 8's on repeat
-ordered 1PRBC in preparation for need transfusion d/t hx antibodies.
-B12 supplementation resumed (Daughter reports patient was recommended to stop, unable to verify in review of records and discussion with GI)
#Acute dehydration secondary to decreased fluid intake
-IVF supplementation completed
#Orthostatic hypotension Hx
-Continue midodrine 2.5 mg 3 times daily with holding parameters
#Seizure disorder
-Continue Keppra 500 mg every 12 hours
#History of dizziness suspected benign positional vertigo
-Continue TEDs
-Takes meclizine 12.5 mg p.o. 3 times daily as needed dizziness
#HLD
-cont Lipitor 40 mg daily
#Depression/anxiety
-Continue Pristiq 100 mg daily
PT/OT appreciated HH
DVT prophylaxis
SCDs
Full code
discussed with patient and her daughter Nandini
I spent a total of 55 minutes with the patient or on the floor. More than 50% of this time involved counseling and coordination of care.
Anticipated Discharge: 24 - 48 hours
Subjective/Interval History
-
Date of Service: March 19, 2024
No acute distress appears comfortable at this time. Continues to report dark stools.
Objective Data
-
Labs:
Laboratory Results
03/19/24
06:00
WBC Pending
Hgb Pending
Hct Pending
Plt Count Pending
Sodium Pending
Potassium Pending
Chloride Pending
Carbon Dioxide Pending
BUN Pending
Creatinine Pending
Glucose Pending
Calcium Pending
Vital Signs:
Vital Signs
Temp Pulse Resp BP Pulse Ox
98.0 F 92 16 125/72 96
03/19/24 03:40 03/19/24 03:40 03/19/24 03:40 03/19/24 03:40 03/19/24 03:40
I&O
03/17/24 03/18/24 03/19/24
06:59 06:59 06:59
Intake Total 1979
Balance 1979
[2024-03-19 07:39] LABS: Hematocrit 21.2 % (37.0-47.0); Hemoglobin 7.1 g/dL (12.0-16.0); Mean Corp Hgb Conc. 33.5 g/dL (33.0-37.0); Mean Corpuscular Volume 95.5 fL (81.0-99.0); Mean Platelet Volume 9.3 fL (7.4-10.4); Platelet Count 198 10^3/uL (130-400); Red Blood Cell Count 2.22 10^6/uL (4.20-5.40); Red Cell Dist. Width 16.1 % (11.5-14.5); White Blood Cell Count 5.5 10^3/uL (4.8-10.8)
[2024-03-19 08:12] LABS: Blood Urea Nitrogen 17 mg/dl (7-17); Calcium 8.2 mg/dl (8.4-10.2); Carbon Dioxide 23 mmol/L (22-30); Chloride 109 mmol/L (98-107); Estimated Creatinine Clearance 54 ml/min; Glucose 83 mg/dl (70-99); Magnesium 1.6 mg/dl (1.6-2.3); Phosphorus 3.9 mg/dl (2.5-4.5); Potassium 4.5 mmol/L (3.5-5.1); Sodium 132 mmol/L (135-145); eGFR > 60.00
[2024-03-19] MEDS: NSS IV (08:13)
[2024-03-19] MEDS: KEPPRA 500 MG PO ×2 (08:16→20:06)
[2024-03-19] MEDS: PRISTIQ 100 MG PO (08:16)
[2024-03-19] MEDS: ProAmatine 2.5 MG PO (08:16)
[2024-03-19] MEDS: NSS (PRESERVATIVE FREE) 10 ML IV (08:17)
[2024-03-19] MEDS: FOLVITE 1 MG PO (08:17)
[2024-03-19] MEDS: PROTONIX IV 40 MG IV (08:17)
[2024-03-19] MEDS: VITAMIN B-12 1000 MCG PO (08:17)
[2024-03-19 09:13] LABS: Hematocrit 25.6 % (37.0-47.0); Hemoglobin 8.7 g/dL (12.0-16.0)
--- NOTE | 2024-03-19 10:40 | W.PN.UPDATE ---
Update Note
Progress Note Update
I called and left a message to update the patient's daughter, hemoglobin stable, only 1 bowel movement yesterday, overall feeling better.
[2024-03-19] MEDS: ProAmatine PO ×2 (12:03→17:27)
--- NOTE | 2024-03-19 12:38 | PTCARENOTE ---
Patient excreted capsule this AM, daughter in to collect capsule and send it via fedex per patient
[2024-03-19 13:48] LABS: Hematocrit 24.9 % (37.0-47.0); Hemoglobin 8.3 g/dL (12.0-16.0)
[2024-03-19] MEDS: LIPITOR 40 MG PO (17:26)
[2024-03-20] VITALS (9 sets, daily range): BP systolic 111–159; BP diastolic 55–95; PULSE 83–90
[2024-03-20 06:32] LABS: Mean Corp Hgb Conc. 35.1 g/dL (33.0-37.0); Mean Corpuscular Hgb 33.8 pg (27.0-31.0); Mean Corpuscular Volume 96.5 fL (81.0-99.0); Platelet Count 203 10^3/uL (130-400); Red Blood Cell Count 2.01 10^6/uL (4.20-5.40); Red Cell Dist. Width 15.7 % (11.5-14.5); White Blood Cell Count 4.9 10^3/uL (4.8-10.8)
--- NOTE | 2024-03-20 06:59 | W.PN.HOSP.TC ---
Today's Communication/Plan
-
1PRBC transfusion
monitor H&H
accepted transfer [facility] Sat/
Assessment / Plan
Assessment / Plan
Physical Exam
General: pallor+ no cyanosis, or jaundice.
HEENT: Throat clear. PERRLA Normocephalic atraumatic
NECK: Supple. No JVD Carotid Bruits
RESPIRATORY: Lungs clear to auscultation. No crackles wheezes stridor
CVS: S1, S2 sinus tachy. No murmur, rub or gallop.
ABDOMEN: Soft, non-tender. No distension. Hypoactive bowel sounds
EXTREMITIES: No peripheral cyanosis or edema. Able to lift legs off bed
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
88Fhx peptic ulcer disease anxiety HTN/hypotension seizures former smoker depression/anxiety persistent anemia presents for evaluation darke melenic stools. Patient's third hospitalization for GI bleed this month. Most recently patient was
discharged from this facility 2 days prior to this hospitalization, with capsule endoscopy performed the very next day. Capsule remains in patient's GI tract on presentation. Brought in by daughter concerns for persistent melenic stools with
associate lightheadedness dizziness.
#melenic stool GIB
#Persistent anemia/B12 deficiency
#Hx ab's present in type and cross
-Third admission since 02/27/2024
-03/11/24 Underwent colonoscopy with inpatient uteroscope which did not show any signs of obvious bleeding
-S/P capsule Endo 03/16/2024
-Abd XR appreciated Ingested pill cam in the region of the proximal ileum
-capsule since passed, results pending
-IV PPI daily
-IV Zofran prn
-1PRBC transfusion today for goal Hgb 8 given concern active GIB
-ordered additional 1PRBC in preparation for need additional transfusion d/t hx antibodies.
-B12 supplementation resumed (Daughter reports patient was recommended to stop, unable to verify in review of records and discussion with GI)
-Consult GI appreciated accepted transfer to [facility] for double balloon enteroscopy, accepting physician Dr Bermeo, Clear Liquids on Sun, likely transfer Mon/Tu
#Acute dehydration secondary to decreased fluid intake
-IVF supplementation completed
#Orthostatic hypotension Hx
-Continue midodrine 2.5 mg 3 times daily with holding parameters
#Seizure disorder
-Continue Keppra 500 mg every 12 hours
#History of dizziness suspected benign positional vertigo
-Continue TEDs
-Takes meclizine 12.5 mg p.o. 3 times daily as needed dizziness
#HLD
-cont Lipitor 40 mg daily
#Depression/anxiety
-Continue Pristiq 100 mg daily
PT/OT appreciated HH
DVT prophylaxis
SCDs
Full code
discussed with patient and her daughter Nandini
I spent a total of 55 minutes with the patient or on the floor. More than 50% of this time involved counseling and coordination of care.
Anticipated Discharge: > 48 hours
Subjective/Interval History
-
Date of Service: March 20, 2024
Drop in hgb noted this morning repeat remains low. Transfusing for goal >8 given concern active GI bleed. Patient continues to report dark stools.
Objective Data
-
Labs:
Laboratory Results
03/20/24
04:22
WBC Pending
Hgb Pending
Hct Pending
Plt Count Pending
Sodium Pending
Potassium Pending
Chloride Pending
Carbon Dioxide Pending
BUN Pending
Creatinine Pending
Glucose Pending
Calcium Pending
Vital Signs:
Vital Signs
Temp Pulse Resp BP Pulse Ox
97.8 F 90 18 126/70 94
03/20/24 04:42 03/20/24 04:42 03/20/24 04:42 03/20/24 04:42 03/20/24 04:42
I&O
03/18/24 03/19/24 03/20/24
06:59 06:59 06:59
Intake Total 1979 2280 / 2280 960 / 960
Balance 1979 2280 / 2280 960 / 960
[2024-03-20 07:04] LABS: Blood Urea Nitrogen 17 mg/dl (7-17); Calcium 8.2 mg/dl (8.4-10.2); Carbon Dioxide 23 mmol/L (22-30); Chloride 107 mmol/L (98-107); Estimated Creatinine Clearance 47 ml/min; Glucose 78 mg/dl (70-99); Magnesium 1.6 mg/dl (1.6-2.3); Phosphorus 4.3 mg/dl (2.5-4.5); Potassium 4.2 mmol/L (3.5-5.1); Sodium 132 mmol/L (135-145); eGFR > 60.00
[2024-03-20 07:06] LABS: Hemoglobin 6.8 g/dL (12.0-16.0)
[2024-03-20 07:07] LABS: Hematocrit 19.4 % (37.0-47.0)
[2024-03-20 08:18] LABS: Hemoglobin 7.1 g/dL (12.0-16.0)
[2024-03-20 08:28] LABS: Hematocrit 20.9 % (37.0-47.0)
[2024-03-20] MEDS: PRISTIQ 100 MG PO (08:29)
[2024-03-20] MEDS: KEPPRA 500 MG PO ×2 (08:29→19:51)
[2024-03-20] MEDS: PROTONIX IV 40 MG IV (08:30)
[2024-03-20] MEDS: VITAMIN B-12 1000 MCG PO (08:30)
[2024-03-20] MEDS: FOLVITE 1 MG PO (08:30)
[2024-03-20] MEDS: NSS (PRESERVATIVE FREE) 10 ML IV (08:30)
[2024-03-20] MEDS: ProAmatine PO ×3 (08:34→17:24)
--- NOTE | 2024-03-20 10:59 | W.PN.GI.CBS2 ---
Addendum entered and electronically signed by Emeli Hudson MD 03/20/24 17:46:
I saw and examined the patient.
The INSURANCE BILLING CLERK or PA's note was reviewed and I agree with the note.
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
Needs to be on clear liquids on Saturday. Likely transfer Sat/.
Trend Hb/monitor for bleeding.
Addendum entered and electronically signed by BEAR Sy 03/20/24 12:13:
Patient is being transferred to [facility] under the service of Dr. Bermeo (GI) for obscure GI Bleeding, persistent melena requiring continued blood transfusions and higher level of care/double balloon enteroscopy transfer
planned for Saturday. Patient will need to be on clear liquid diet on Saturday. Discussed with patient, both daughters and IM attentding.
Original Note:
Today's Communication / Plan
-
transfuse
Will attempt to trf patient to tertiary center for DBE
Assessment / Plan
-
1. 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 Video capsule passes last evening and was mailed via Fed Ex by daughter. Patient with melena x 2 this am with drop in Hgb from 8.3 to
6.8. Currently receiving blood transfusion now. On solid diet at present time. Will obtain repeat Hgb after transfusion and will continue to trend. We will try to transfer to tertiary center for double balloon enteroscopy as she is having melena
with drop in Hgb..
Subjective
Subjective
Date of Service: March 20, 2024
Patient passed capsocam yesterday and this was sent via FedEx by daughter. She had brown BM last evening but 2 episodes of melena this am. Hgb from 8.3 to 6.8 this am. She is currently being transfused 1 unit PRBC. She is also having some mild
dizziness as well. Patient denies any CP,SOB, N, V or abdominal pain.
Objective
Data Reviewed
Laboratory Data:
Laboratory Results
03/20/24 10:00
03/20/24 04:22
Laboratory Results
Phosphorus 4.3 mg/dl (2.5-4.5) 03/20/24 04:22
Magnesium 1.6 mg/dl (1.6-2.3) 03/20/24 04:22
Total Bilirubin Cancelled 03/17/24 15:07
AST Cancelled 03/17/24 15:07
ALT Cancelled 03/17/24 15:07
Alkaline Phosphatase Cancelled 03/17/24 15:07
Vital Signs and I&O:
Vital Signs
Temp Pulse Resp BP Pulse Ox
97.4 F 92 18 125/71 99
03/20/24 10:51 03/20/24 10:51 03/20/24 10:51 03/20/24 10:51 03/20/24 10:51
I&O
03/19/24 03/20/24 03/21/24
06:59 06:59 06:59
Intake Total 2280 / 2280 960 / 960 0 / 0
Balance 2280 / 2280 960 / 960 0 / 0
Physical Exam
Physical Exam
HEENT: Anicteric
Cardiology: Normal Sinus Rhythm
Pulmonary: Clear
GI: Soft, Non Distended, Non Tender and Normal Bowel Sounds
Neuro: Non Focal
--- NOTE | 2024-03-20 11:15 | PN.CDI ---
CDI
- -
CDI:
Physician Documentation Request
Admit Date: 03/17/24 18:48
Dear Doctor Luis Carlos,
Patient admitted for GI bleed.
03/19 Hospitalist PN: 'melenic stool GIB, Persistent anemia/B12 deficiency...Hgb drop from initial 10 to 7 noted, likely initial Hgb hemoconcentrated, 7 also likely dilutional with IVF, since improved to 8's on repeat -ordered 1PRBC in preparation
for need transfusion d/t hx antibodies.'
Based on the above, could you clarify, in your progress note, which of the following is the most likely type of anemia you are evaluating, monitoring and/or treating?
Acute anemia multifactorial blood loss and hemodilution
Chronic B12 deficiency anemia
Other
Use of terms such as suspected, likely, concern for, or probable (associated with a specific diagnosis that is being evaluated, monitored, or treated as if it exists) are acceptable and can be coded in the inpatient setting, when documented at the
time of discharge.
Thank you,
Magaly Rose RN, BSN
CDI Specialist
Available via [place] text
Please use your independent medical judgment in providing your response.
[2024-03-20] MEDS: LIPITOR 40 MG PO (17:24)
--- NOTE | 2024-03-20 18:18 | CM ---
Recently discharge in February for GI bleed. Patient lives with in in-law suite at daughter's house. Ambulates without assistive devices inside the house, uses a Rollator when goes outside. 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 Had HH. Discharge Plan of Care: Anticipate home with HH.
[2024-03-20 19:00] LABS: Hemoglobin 9.4 g/dL (12.0-16.0)
[2024-03-21 03:00] VITALS: BP 128/63
--- NOTE | 2024-03-21 06:38 | W.PN.HOSP.TC ---
Addendum entered and electronically signed by Edwin Aldridge MD 03/21/24 18:03:
Acute and chronic anemia multifactorial blood loss hemodilution B12 deficiency
Original Note:
Today's Communication/Plan
-
Transfer to [place]
Assessment / Plan
Assessment / Plan
Physical Exam
General: pallor+ no cyanosis, or jaundice.
HEENT: Throat clear. PERRLA Normocephalic atraumatic
NECK: Supple. No JVD Carotid Bruits
RESPIRATORY: Lungs clear to auscultation. No crackles wheezes stridor
CVS: S1, S2 sinus tachy. No murmur, rub or gallop.
ABDOMEN: Soft, non-tender. No distension. Hypoactive bowel sounds
EXTREMITIES: No peripheral cyanosis or edema. Able to lift legs off bed
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
88Fhx peptic ulcer disease anxiety HTN/hypotension seizures former smoker depression/anxiety persistent anemia presents for evaluation darke melenic stools. Patient's third hospitalization for GI bleed this month. Most recently patient was
discharged from this facility 2 days prior to this hospitalization, with capsule endoscopy performed the very next day. Capsule remains in patient's GI tract on presentation. Brought in by daughter concerns for persistent melenic stools with
associate lightheadedness dizziness.
#melenic stool GIB
#Persistent anemia/B12 deficiency
#Hx ab's present in type and cross
-Third admission since 02/27/2024
-03/11/24 Underwent colonoscopy with inpatient uteroscope which did not show any signs of obvious bleeding
-S/P capsule Endo 03/16/2024
-Abd XR appreciated Ingested pill cam in the region of the proximal ileum
-capsule since passed, results pending
-IV PPI daily
-IV Zofran prn
-1PRBC transfusion today for goal Hgb 8 given concern active GIB
-ordered additional 1PRBC in preparation for need additional transfusion d/t hx antibodies.
-B12 supplementation resumed (Daughter reports patient was recommended to stop, unable to verify in review of records and discussion with GI)
-Consult GI appreciated accepted transfer to [place] for double balloon enteroscopy, accepting physician Dr Bermeo, bed available patient to be transferred today 03/21
#Acute dehydration secondary to decreased fluid intake
-IVF supplementation completed
#Orthostatic hypotension Hx
-Continue midodrine 2.5 mg 3 times daily with holding parameters
#Seizure disorder
-Continue Keppra 500 mg every 12 hours
#History of dizziness suspected benign positional vertigo
-Continue TEDs
-Takes meclizine 12.5 mg p.o. 3 times daily as needed dizziness
#HLD
-cont Lipitor 40 mg daily
#Depression/anxiety
-Continue Pristiq 100 mg daily
PT/OT appreciated HH
DVT prophylaxis
SCDs
Full code
Medically stable for transfer to [place] for Double Balloon Enteroscopy, accepting physician Dr Bermeo
discussed with patient and her daughter Nandini
Total Time Preparing Discharge __50 minutes including examination of the patient, summary of the hospital stay, instructions for continuing care to all relevant caregivers; and preparation of discharge records, prescriptions, and referral
forms if necessary.
Anticipated Discharge: Today
Subjective/Interval History
-
Date of Service: March 21, 2024
No acute distress reports feeling well.
Objective Data
-
Labs:
Laboratory Results
03/20/24 03/21/24
18:54 06:21
WBC Pending
Hgb 9.4 L D Pending
Hct Pending
Plt Count Pending
Sodium Pending
Potassium Pending
Chloride Pending
Carbon Dioxide Pending
BUN Pending
Creatinine Pending
Glucose Pending
Calcium Pending
Vital Signs:
Vital Signs
Temp Pulse Resp BP Pulse Ox
97.8 F 87 20 128/63 98
03/21/24 03:00 03/21/24 03:00 03/21/24 03:00 03/21/24 03:00 03/21/24 03:00
I&O
03/19/24 03/20/24 03/21/24
06:59 06:59 06:59
Intake Total 2280 / 2280 960 / 960 250 / 250
Balance 2280 / 2280 960 / 960 250 / 250
--- NOTE | 2024-03-21 07:24 | PTCARENOTE ---
pt's daughter Nandini was notified of pts' transfer today to [place].
[2024-03-21 07:42] VITALS: BP 138/79
[2024-03-21] MEDS: PROTONIX IV 40 MG IV (08:01)
[2024-03-21] MEDS: NSS (PRESERVATIVE FREE) 10 ML IV (08:01)
[2024-03-21] MEDS: PRISTIQ 100 MG PO (08:01)
[2024-03-21] MEDS: VITAMIN B-12 1000 MCG PO (08:01)
[2024-03-21] MEDS: ProAmatine PO (08:03)
[2024-03-21] MEDS: FOLVITE 1 MG PO (08:03)
[2024-03-21] MEDS: KEPPRA 500 MG PO (08:03)
--- NOTE | 2024-03-21 09:10 | W.DCSUMMARY ---
Discharge Summary
Discharge Data
Date of Admission: 03/17/24
Date of Discharge: 03/21/24
-
Pending Results: No
Hospital Course
88F hx peptic ulcer disease anxiety HTN/hypotension seizures former smoker depression/anxiety persistent anemia presents for evaluation dark melenic stools. Patient's third hospitalization for GI bleed this month. Most recently patient was
discharged from this facility 2 days prior to this hospitalization, with capsule endoscopy performed the very next day. Capsule remained in patient's GI tract on presentation. Brought in by daughter d/t concerns for persistent melenic stools with
associate lightheadedness dizziness. Melenic stool GIB, Persistent anemia/B12 deficiency, Hx ab's present in type and cross, third admission since 02/27/2024, 03/11/24 underwent colonoscopy, endoscopy, and small bowel endoscopy with which did not
show any signs of obvious bleeding. Capsule Endo was performed 03/16/2024. Abd XR appreciated Ingested pill cam in the region of the proximal ileum, capsule since passed, results pending. 1PRBC transfusion was given for goal Hgb 8, given concern
active GIB. GI evaluated and patient was accepted transfer to [place] for double balloon enteroscopy, accepting physician Dr Bermeo. Patient transferred 03/21.
Discharge Plan
-
Patient Disposition: Acute Care Hospital
Discharge Orders:
Discharge Patient (As Directed); Ordered 03/21/24
Ordered By: Edwin Aldridge
Discharge Date and Time
Discharge Date/Time: 03/21/24 13:30
Print Language: PAPUA [place]
--- NOTE | 2024-03-21 10:13 | CM ---
CM following re: discharge planning.
Reviewed pt's chart.
Per RN pt will be transferred to [facility] today.
scheduling ambulance. PMNC completed and left with
D/C plan: transfer to [facility];.
[2024-03-21 12:14] VITALS: BP 135/88; BP 148/82; BP 149/84; PULSE 104; PULSE 116; PULSE 99
[2024-03-21 13:30] VITALS: BP 154/100
--- NOTE | 2024-03-21 13:33 | PTCARENOTE ---
This nurse gave report to GI floor RN Dillon. Patient to be transferred to [facility] ([place] [facility]). [facility] wanted confirmation that patient is okay to be taken off of tele monitor- Dr. Aldridge stated okay for tele monitor to be discontinued.
Transferred via Acute Care on stretcher. All discharge paperwork and CD sent with patient.
== END 2024-03-21 13:30 | disposition short-term general hospital (02) | DRG 378 ==
LOC: 2 SOUTH 18:48
PROVIDERS: Clinical Nurse Specialist Family Health; Internal Medicine Gastroenterology; Nurse Practitioner; ADMITTING PHYSICIAN Internal Medicine; EMERGENCY PHYSICIAN Emergency Medicine; FAMILY PHYSICIAN Family Medicine
PROC: 30233N1 Transfusion of Nonautologous Red Blood Cells into Peripheral Vein, Percutaneous Approach (ICD-10-PCS; 2024-03-20)
DX: K92.1 Melena (principal); D62 Acute posthemorrhagic anemia; K92.0 Hematemesis; E86.0 Dehydration; E03.9 Hypothyroidism, unspecified; E78.00 Pure hypercholesterolemia, unspecified; G40.909 Epilepsy, unspecified, not intractable, without status epilepticus; D51.9 Vitamin B12 deficiency anemia, unspecified; F41.9 Anxiety disorder, unspecified; F32.A Depression, unspecified; I10 Essential (primary) hypertension; I95.1 Orthostatic hypotension; D63.8 Anemia in other chronic diseases classified elsewhere; Z87.11 Personal history of peptic ulcer disease; Z87.891 Personal history of nicotine dependence
CPT/HCPCS: 74018; 80048; 83735; 84100; 85014; 85018; 85025; 85027; 86850; 86870; 86900; 86901; 86902; 86920; 86922; 96374; 96376; 97110; 97162; 97166; 97530; 99285; P9016